=== PATIENT | male | born 1985 | race Caucasian/White ===

== ENCOUNTER 2021-04-30 00:46 | Inpatient (IN) | payer OTHER, SELFPAY ==
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
[2021-04-30 06:36] VITALS: BP 143/86; PULSE 72; RESP 16; O2SAT 95
[2021-04-30] MEDS: Acetaminophen 325 MG TABLET 650 MG PO (08:45)
[2021-04-30] MEDS: Nicotine Polacrilex 2 MG GUM 4 MG BUCCAL ×2 (10:30→22:13)
[2021-04-30 10:33] VITALS: BMI 51.2
[2021-04-30] MEDS: hydrOXYzine HCL 25 MG TABLET PO ×2 (13:44→21:29)
--- NOTE | 2021-04-30 14:37 | HO.PSYADMNOT ---
HPI Chief Complaint: Major depressive disorder Sources of Information: patient interviewed, chart reviewed and crisis/core team assessment reviewed HPI Subjective Notes: Conditional Voluntary Narrative: Mr. Troy Beltran is a 35 year-old male with hx of cocaine use. He was brought to [facility] ED after he called 911 reporting suicidal ideation. Per crisis report, pt has been presenting as increasingly more irritable, threatening . He apparently had come from work, very angry towards , accusing her of not doing any work at home. Per crisis report, noted that he was off. was scared of pt as he appeared very volatile and agitated. She told him she would call the police. But instead pt decided to call police. Per crisis records, when policed arrived, pt holding knife and reporting suicidal ideation. 51A was filed unclear if by police or crisis- DCF now involved and wanting to talk with pt prior to discharge. In the ED, pt was positive for cocaine. On the unit, Mr. Beltran presents as much calmer, apologetic and tearful. He reports having about 2 years of sobriety and relapsed on cocaine about 8 months ago. He notes that he has become much more irritable and explosive and it is affecting his ability to care for his children and his relationship with his and ultimately his work. He reports in the past he was on topamax but had left sided weakness which he thought was related to topamax so he stopped this medications. Note that he was never medically assessed or evaluated for possible CVA. Pt reports poor sleep/appetite. He denies visual or auditory hallucinations. Past Psychiatric History: Inpatient: 09/15/2019 [facility]; 01/23/19 [facility]; 01/2015 [facility]; 08/2008 [facility] OP: none Past medication trials: topamax for cocaine cravings Suicide attempts: denies. Medical Evaluation Reviewed: Yes Diagnostics Vital Signs (24Hr): Vital Signs - 24 hr 04/30/21 06:36 Pulse Rate 72 Respiratory Rate 16 Blood Pressure 143/86 H Pulse Oximetry 95 Body Mass Index 51.2 Meds/Allergies Meds Home Medications Acetaminophen (Acetaminophen 325 Mg Tablet) 650 mg PO Q6H PRN PRN Reason: Headache/Pain Mild Scale (1-3) Last Admin: 04/30/21 08:45 Dose: 650 mg Documented by: Al Hydroxide/Mg Hydroxide (Magnesium Hydrox/Alum Hydrox 30 Ml Oral.Susp) 30 ml PO Q6H PRN PRN Reason: Heartburn/Nausea Amlodipine Besylate (Amlodipine Besylate 10 Mg Tablet) 10 mg PO DAILY [facility]; Protocol Last Admin: 05/01/21 08:17 Dose: 10 mg Documented by: Hydroxyzine HCl (Hydroxyzine Hcl 25 Mg Tablet) 25 mg PO Q6H PRN PRN Reason: Anxiety Last Admin: 05/01/21 08:54 Dose: 25 mg Documented by: Lorazepam (Lorazepam 1 Mg Tablet) 1 mg PO Q6H PRN PRN Reason: anxiety/restlessness Magnesium Hydroxide (Milk Of Magnesia 30 Ml Oral.Susp) 30 ml PO DAILY PRN PRN Reason: Constipation Last Admin: 04/30/21 20:32 Dose: 30 ml Documented by: Naproxen (Naproxen 500 Mg Tablet) 500 mg PO BIDWM [facility] Last Admin: 05/01/21 08:17 Dose: 500 mg Documented by: Nicotine Polacrilex (Nicotine Polacrilex 2 Mg Gum) 4 mg BUCCAL Q2H PRN PRN Reason: Nicotine Cravings Last Admin: 05/01/21 09:49 Dose: 4 mg Documented by: Topiramate (Topiramate 25 Mg Tablet) 50 mg PO BID [facility] Last Admin: 05/01/21 08:16 Dose: 50 mg Documented by: Trazodone HCl (Trazodone Hcl 50 Mg Tablet) 50 mg PO BEDTIME PRN PRN Reason: Insomnia Allergies Allergies Allergy/AdvReac Type Severity Reaction Status Date / Time No Known Allergies Allergy Verified 04/30/21 01:37 Mental Status Exam Mental Status Exam Narrative: Appearance: casually groomed, fair hygiene in NAD Behavior:cooperative psychomotor: no agitation or retardation noted Speech:clear, normal rate/rhythm/volume, spontaneous Thought process:linear Thought content:no signs of psychosis, future oriented, remorseful about substance use Mood: worried Affect: congruent SI:denies HI:denies VH/AH:none Delusions:none Memory/cog: alert, oriented x 3. grossly intact to conversational testing. 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 Beltran is a 35 year-old male with hx of cocaine use, in remission for about two years but relapsed about 8 months ago. He was brought by police to [facility] after he called 911 reported suicidal ideation in context of argument with , exacerbated but increased irritability and agitation secondary to cocaine use. On the unit, pt presents much calmer, apologetic, future oriented, no si/hi. He agrees to restart topamax for cocaine use disorder. PLAN 1. Admit to 2. Restart topamax 50mg po BID, will titrate as needed 3. Obtain collateral information Patient educated on: medication risk/benefits Informed Consent: understands Reason for continued inpatient stay Substantial Risk for: inability to function
[2021-04-30 16:46] VITALS: BP 178/100; PULSE 71; TEMP 36.3
[2021-04-30 17:06] VITALS: BP 176/92; PULSE 63
[2021-04-30] MEDS: NaPROXEN 500 MG TABLET PO (17:06)
[2021-04-30] MEDS: amLODIPine Besylate 10 MG TABLET PO (17:06)
[2021-04-30] MEDS: Topiramate 25 MG TABLET 50 MG PO (20:23)
[2021-04-30] MEDS: Milk of Magnesia 30 ML ORAL.SUSP PO (20:32)
[2021-05-01 06:50] VITALS: BP 128/83; PULSE 71; TEMP 36.2; O2SAT 98
[2021-05-01] MEDS: Topiramate 25 MG TABLET 50 MG PO ×2 (08:16→20:16)
[2021-05-01 08:17] VITALS: BP 169/92; PULSE 62
[2021-05-01] MEDS: amLODIPine Besylate 10 MG TABLET PO (08:17)
[2021-05-01] MEDS: NaPROXEN 500 MG TABLET PO ×2 (08:17→16:53)
[2021-05-01] MEDS: hydrOXYzine HCL 25 MG TABLET PO ×2 (08:54→22:09)
[2021-05-01 09:25] LABS: Estimated Average Glucose 114 mg/dL; Hemoglobin A1c % 5.6 %
[2021-05-01 09:28] LABS: Cholesterol 168 mg/dL; HDL Cholesterol 39 mg/dL; LDL Cholesterol Calculated 102 mg/dl; Triglycerides 135 mg/dL
[2021-05-01] MEDS: Nicotine Polacrilex 2 MG GUM 4 MG BUCCAL ×2 (09:49→21:43)
[2021-05-01 09:50] LABS: Thyroid Stimulating Hormone 1.46 uIU/mL (0.32-4.0)
[2021-05-01 10:01] LABS: Folate 13.3 ng/mL (> or = 4.0); Vitamin B12 533 pg/mL (200-900)
--- NOTE | 2021-05-01 11:49 | HO.PSYCHPN ---
Subjective Subjective Date of Service: 05/02/21 Reason For Visit: Major depressive disorder Subjective Notes: Conditional Voluntary Interim History: Pt reports feeling better in that he is much less irritable, apologetic and remorseful about incident with family. He notes that his irritability is connected to cocaine use, which he states he is motivated to continue substance use treatment. He denies SI/HI. He reports fair sleep with cpap. He denies AH/VH. Medication Compliance: Yes Side effects from medications: Yes (paresthesia with topamax) Review of Systems Acute medical concerns: No Review of Systems Review of Systems Yes all other systems are reviewed and are negative Constitutional: Reports poor appetite, Reports snoring, Denies weight gain and Denies weight loss Cardiovascular: Denies chest pain, Denies chest pain at rest, Denies chest pain with activity, Denies epigastric discomfort, Denies rapid heart rate, Denies pedal edema, Denies edema, Denies lightheadedness, Denies radiating jaw, neck or arm pain, Denies palpitations, Denies dyspnea and Denies dyspnea on exertion Respiratory: Denies dyspnea, Denies dyspnea on exertion and Reports snoring Endocrine: Denies palpitations Mental Status Exam Mental Status Exam Narrative: Appearance: casually groomed, fair hygiene in NAD Behavior:cooperative psychomotor: no agitation or retardation noted Speech:clear, normal rate/rhythm/volume, spontaneous Thought process:linear Thought content:no signs of psychosis, future oriented, remorseful about substance use Mood: worried Affect: congruent SI:denies HI:denies VH/AH:none Delusions:none Memory/cog: alert, oriented x 3. grossly intact to conversational testing. Diagnostics Vital Signs (24Hr): Vital Signs - 24 hr 05/01/21 17:21 05/02/21 06:00 05/02/21 08:34 Temperature 97.8 F 97.6 F Pulse Rate 68 72 72 Respiratory Rate 18 16 Blood Pressure 174/91 H 150/86 H 160/92 H Pulse Oximetry 98 95 05/02/21 09:21 Temperature Pulse Rate 76 Respiratory Rate Blood Pressure 162/101 H Pulse Oximetry Body Mass Index 51.2 Labs Labs: Laboratory Results - last 48 hr 05/01/21 05/01/21 05/01/21 08:05 08:05 08:05 Estimat Average Glucose 114 Hemoglobin A1c % 5.6 Triglycerides 135 Cholesterol 168 LDL Cholesterol, Calc 102 HDL Cholesterol 39 Vitamin B12 533 Folate 13.3 TSH 1.46 Medications Medications Current Medications Generic Name Dose Route Start Last Admin Trade Name Prince PRN Reason Stop Dose Admin Acetaminophen 650 mg 04/30/21 01:37 04/30/21 08:45 Acetaminophen 325 Mg Tablet PO 650 mg Q6H PRN Administration Headache/Pain Mild Scale (1-3) Al Hydroxide/Mg Hydroxide 30 ml 04/30/21 01:37 Magnesium Hydrox/Alum Hydrox 30 Ml Oral.Susp PO Q6H PRN Heartburn/Nausea Amlodipine Besylate 10 mg 04/30/21 16:55 05/02/21 08:34 Amlodipine Besylate 10 Mg Tablet PO 10 mg DAILY DANIEL Administration Protocol Clonidine HCl 0.1 mg 05/02/21 12:00 Clonidine Hcl 0.1 Mg Tablet PO 05/02/21 12:01 ONCE ONE Protocol Hydrochlorothiazide 25 mg 05/02/21 09:00 05/02/21 08:34 Hydrochlorothiazide 25 Mg Tablet PO 25 mg DAILY DANIEL Administration Protocol Hydroxyzine HCl 25 mg 04/30/21 01:37 05/01/21 22:09 Hydroxyzine Hcl 25 Mg Tablet PO 25 mg Q6H PRN Administration Anxiety Lisinopril 20 mg 05/02/21 09:00 05/02/21 08:34 Lisinopril 20 Mg Tablet PO 20 mg DAILY DANIEL Administration Protocol Lorazepam 1 mg 04/30/21 21:28 05/01/21 22:09 Lorazepam 1 Mg Tablet PO 1 mg Q6H PRN Administration anxiety/restlessness Magnesium Hydroxide 30 ml 04/30/21 01:37 05/01/21 21:44 Milk Of Magnesia 30 Ml Oral.Susp PO 30 ml DAILY PRN Administration Constipation Naproxen 500 mg 04/30/21 17:00 05/02/21 08:34 Naproxen 500 Mg Tablet PO 500 mg BIDWM DANIEL Administration Nicotine Polacrilex 4 mg 04/30/21 10:24 05/02/21 09:26 Nicotine Polacrilex 2 Mg Gum BUCCAL 4 mg Q2H PRN Administration Nicotine Cravings Polyethylene Glycol 17 gm 05/01/21 11:08 05/01/21 13:33 Polyethylene Glycol 3350 17 Gm Powd.Pack PO 17 gm DAILY PRN Administration Constipation Potassium Chloride 10 meq 05/02/21 09:00 05/02/21 08:34 Potassium Chloride Er 10 Meq Capsule.Er PO 10 meq DAILY DANIEL Administration Topiramate 50 mg 05/02/21 21:00 Topiramate 25 Mg Tablet PO BEDTIME DANIEL Trazodone HCl 50 mg 04/30/21 01:37 Trazodone Hcl 50 Mg Tablet PO BEDTIME PRN Insomnia Allergies Allergies Allergy/AdvReac Type Severity Reaction Status Date / Time No Known Allergies Allergy Verified 04/30/21 01:37 Assessment & Plan Assessment & Plan (1) 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 Beltran is a 35 year-old male brought to [facility] by police after he called reporting suicidal ideation in setting of cocaine use and argument with . On unit, pt adamantly denies suicidal or homicidal ideation. He was started on topamax for cocaine cravings but experiencing parethesias (hand and face numbness) which common side effect of topamax. We discussed decreasing dose of topamax to 50mg po qhs and adding potassium tablet for topamax induced paresthisia PLAN 1. lower topamax to 50mg po qhs- add K 10 meq daily for paresthesias 2. aftercare planning Assessment and Plan: This is a 35-year-old male with no significant past medical history who presents to the [facility] unit with cocaine induced mood disorder and suicidal ideation We are asked to see this patient for admission H&P He currently has no acute issues and has no medical complaints Greater than 50% of the session was spent on counseling and/or coordination of care Reason for contiued inpatient stay Substantial Risk for: harm to self and harm to others
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
[2021-05-01] MEDS: polyethylene glycoL 3350 17 GM POWD.PACK PO (13:33)
[2021-05-01 17:21] VITALS: BP 174/91; PULSE 68; RESP 18; TEMP 36.6; O2SAT 98
[2021-05-01] MEDS: Milk of Magnesia 30 ML ORAL.SUSP PO (21:44)
[2021-05-01] MEDS: LORazepam 1 MG TABLET PO (22:09)
[2021-05-02 06:00] VITALS: BP 150/86; PULSE 72; RESP 16; TEMP 36.4; O2SAT 95
[2021-05-02 08:34] VITALS: BP 160/92; PULSE 72
[2021-05-02] MEDS: lisinopriL 20 MG TABLET PO (08:34)
[2021-05-02] MEDS: hydroCHLOROthiazide 25 MG TABLET PO (08:34)
[2021-05-02] MEDS: NaPROXEN 500 MG TABLET PO ×2 (08:34→17:12)
[2021-05-02] MEDS: amLODIPine Besylate 10 MG TABLET PO (08:34)
[2021-05-02 09:21] VITALS: BP 162/101; PULSE 76
[2021-05-02] MEDS: Nicotine Polacrilex 2 MG GUM 4 MG BUCCAL ×2 (09:26→21:57)
[2021-05-02 12:01] VITALS: BP 166/107; PULSE 84
[2021-05-02] MEDS: cloNIDine HCL 0.1 MG TABLET PO (12:01)
[2021-05-02 13:47] VITALS: BP 156/90; PULSE 76
[2021-05-02 17:15] VITALS: BP 132/58; PULSE 77; TEMP 36.2
[2021-05-02] MEDS: polyethylene glycoL 3350 17 GM POWD.PACK PO (17:19)
[2021-05-02] MEDS: Topiramate 25 MG TABLET 50 MG PO (22:24)
[2021-05-03] MEDS: traZODone HCL 50 MG TABLET PO ×2 (01:09→21:41)
[2021-05-03] MEDS: LORazepam 1 MG TABLET PO ×2 (05:29→12:47)
[2021-05-03 07:47] VITALS: BP 135/82; PULSE 67
[2021-05-03] MEDS: lisinopriL 20 MG TABLET PO (07:47)
[2021-05-03] MEDS: amLODIPine Besylate 10 MG TABLET PO (07:47)
[2021-05-03] MEDS: hydroCHLOROthiazide 25 MG TABLET PO (07:47)
[2021-05-03] MEDS: NaPROXEN 500 MG TABLET PO ×2 (07:48→16:35)
[2021-05-03] MEDS: Nicotine Polacrilex 2 MG GUM 4 MG BUCCAL ×2 (10:19→19:59)
[2021-05-03] MEDS: hydrOXYzine HCL 25 MG TABLET PO (12:44)
[2021-05-03 16:58] VITALS: BP 137/74; PULSE 79; RESP 16; TEMP 36.7; O2SAT 96
[2021-05-03] MEDS: polyethylene glycoL 3350 17 GM POWD.PACK PO (17:03)
--- NOTE | 2021-05-03 21:09 | P.PNPSI_ITS ---
Subjective Subjective Date of Service: 05/03/21 Reason For Visit: Major depressive disorder Subjective Notes: Conditional Voluntary Interim History: sleeping in bed Medication Compliance: Yes Review of Systems Acute medical concerns: No Medical Review of Systems: unchanged Mental Status Exam Mental Status Exam Patient Appearance: Well Grooomed and Appropriate Level of Consciousness: Drowsy Patient Behavior: Appropriate Mood Description: Calm Affect Description: Calm Judgement: Fair Diagnostics Vital Signs (24Hr): Vital Signs - 24 hr 05/03/21 07:47 05/03/21 16:58 Temperature 98.0 F Pulse Rate 67 79 Respiratory Rate 16 Blood Pressure 135/82 137/74 Pulse Oximetry 96 Body Mass Index 51.2 Medications Medications Current Medications Generic Name Dose Route Start Last Admin Trade Name Freq PRN Reason Stop Dose Admin Acetaminophen 650 mg 04/30/21 01:37 04/30/21 08:45 Acetaminophen 325 Mg Tablet PO 650 mg Q6H PRN Administration Headache/Pain Mild Scale (1-3) Al Hydroxide/Mg Hydroxide 30 ml 04/30/21 01:37 Magnesium Hydrox/Alum Hydrox 30 Ml Oral.Susp PO Q6H PRN Heartburn/Nausea Amlodipine Besylate 10 mg 04/30/21 16:55 05/03/21 07:47 Amlodipine Besylate 10 Mg Tablet PO 10 mg DAILY DANIEL Administration Protocol Hydrochlorothiazide 25 mg 05/02/21 09:00 05/03/21 07:47 Hydrochlorothiazide 25 Mg Tablet PO 25 mg DAILY DANIEL Administration Protocol Hydroxyzine HCl 25 mg 04/30/21 01:37 05/03/21 12:44 Hydroxyzine Hcl 25 Mg Tablet PO 25 mg Q6H PRN Administration Anxiety Lisinopril 20 mg 05/02/21 09:00 05/03/21 07:47 Lisinopril 20 Mg Tablet PO 20 mg DAILY DANIEL Administration Protocol Lorazepam 1 mg 04/30/21 21:28 05/03/21 12:47 Lorazepam 1 Mg Tablet PO 1 mg Q6H PRN Administration anxiety/restlessness Magnesium Hydroxide 30 ml 04/30/21 01:37 05/01/21 21:44 Milk Of Magnesia 30 Ml Oral.Susp PO 30 ml DAILY PRN Administration Constipation Naproxen 500 mg 04/30/21 17:00 05/03/21 16:35 Naproxen 500 Mg Tablet PO 500 mg BIDWM DANIEL Administration Nicotine Polacrilex 4 mg 04/30/21 10:24 05/03/21 19:59 Nicotine Polacrilex 2 Mg Gum BUCCAL 4 mg Q2H PRN Administration Nicotine Cravings Polyethylene Glycol 17 gm 05/01/21 11:08 05/03/21 17:03 Polyethylene Glycol 3350 17 Gm Powd.Pack PO 17 gm DAILY PRN Administration Constipation Potassium Chloride 10 meq 05/02/21 09:00 05/03/21 07:47 Potassium Chloride Er 10 Meq Capsule.Er PO 10 meq DAILY DANIEL Administration Topiramate 50 mg 05/02/21 21:00 05/02/21 22:24 Topiramate 25 Mg Tablet PO 50 mg BEDTIME DANIEL Administration Trazodone HCl 50 mg 04/30/21 01:37 05/03/21 01:09 Trazodone Hcl 50 Mg Tablet PO 50 mg BEDTIME PRN Administration Insomnia Allergies Allergies Allergy/AdvReac Type Severity Reaction Status Date / Time No Known Allergies Allergy Verified 04/30/21 01:37 Assessment & Plan Assessment & Plan (1) 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 Beltran is a 35 year-old male brought to [facility] by police after he called reporting suicidal ideation in setting of cocaine use and argument with . On unit, pt adamantly denies suicidal or homicidal ideation. He was started on topamax for cocaine cravings but experiencing parethesias (hand and face numbnes s) which common side effect of topamax. We discussed decreasing dose of topamax to 50mg po qhs and adding potassium tablet for topamax induced paresthisia Continue plan below: 1. lower topamax to 50mg po qhs- add K 10 meq daily for paresthesias 2. aftercare planning Assessment and Plan: This is a 35-year-old male with no significant past medical history who presents to the [facility] unit with cocaine induced mood disorder and suicidal ideation Continue treatment plan Greater than 50% of the session was spent on counseling and/or coordination of care Reason for contiued inpatient stay Substantial Risk for: harm to self and med/psych decompensation
[2021-05-03] MEDS: Topiramate 25 MG TABLET 50 MG PO (21:36)
[2021-05-04 06:00] VITALS: BP 140/73; PULSE 72; TEMP 36.2; O2SAT 98
[2021-05-04] MEDS: Nicotine Polacrilex 2 MG GUM 4 MG BUCCAL ×4 (06:32→18:52)
[2021-05-04 07:53] VITALS: BP 155/74; PULSE 84
[2021-05-04] MEDS: lisinopriL 20 MG TABLET PO (07:53)
[2021-05-04] MEDS: NaPROXEN 500 MG TABLET PO (07:53)
[2021-05-04] MEDS: amLODIPine Besylate 10 MG TABLET PO (07:53)
[2021-05-04] MEDS: hydroCHLOROthiazide 25 MG TABLET PO (07:54)
--- NOTE | 2021-05-04 11:33 | P.PNPSI_ITS ---
Subjective Subjective Date of Service: 05/04/21 Reason For Visit: Major depressive disorder Subjective Notes: Conditional Voluntary Healthcare Proxy: No Guardianship: No Medical Problems Affecting Mental Status: No Interim History: pt had angry outburst yelling and running at unit door; security called to unit and pt had difficulty calming but eventually able to be redirected. Medication Compliance: Yes Side effects from medications: No Attending Groups: Intermittent Review of Systems Acute medical concerns: No Medical Review of Systems: unchanged Review of Systems Review of Systems unchanged Yes all other systems are reviewed and are negative Constitutional: Reports poor appetite, Reports snoring, Denies weight gain and Denies weight loss Cardiovascular: Denies chest pain, Denies chest pain at rest, Denies chest pain with activity, Denies epigastric discomfort, Denies rapid heart rate, Denies pedal edema, Denies edema, Denies lightheadedness, Denies radiating jaw, neck or arm pain, Denies palpitations, Denies dyspnea and Denies dyspnea on exertion Respiratory: Denies dyspnea, Denies dyspnea on exertion and Reports snoring Endocrine: Denies palpitations Mental Status Exam Mental Status Exam Patient Appearance: Well Grooomed and Appropriate Level of Consciousness: Drowsy Patient Behavior: Appropriate (after outburst), Posturing, Verbal Threats and Isolative Mood Description: Calm and Angry (outburst) Affect Description: Calm Patient Cognition Impaired: No Ability to Follow Directions: Fair Speech Pattern: Clear Memory Description: Intact Thought Process: Intact Abnormal Motor Activity Signs and Symptoms: Restlessness Judgement: Fair Diagnostics Vital Signs (24Hr): Vital Signs - 24 hr 05/03/21 16:58 05/04/21 06:00 05/04/21 07:53 Temperature 98.0 F 97.2 F Pulse Rate 79 72 84 Respiratory Rate 16 Blood Pressure 137/74 140/73 H 155/74 H Pulse Oximetry 96 98 Body Mass Index 51.2 Medications Medications Current Medications Generic Name Dose Route Start Last Admin Trade Name Freq PRN Reason Stop Dose Admin Acetaminophen 650 mg 04/30/21 01:37 04/30/21 08:45 Acetaminophen 325 Mg Tablet PO 650 mg Q6H PRN Administration Headache/Pain Mild Scale (1-3) Al Hydroxide/Mg Hydroxide 30 ml 04/30/21 01:37 Magnesium Hydrox/Alum Hydrox 30 Ml Oral.Susp PO Q6H PRN Heartburn/Nausea Amlodipine Besylate 10 mg 04/30/21 16:55 05/04/21 07:53 Amlodipine Besylate 10 Mg Tablet PO 10 mg DAILY DANIEL Administration Protocol Hydrochlorothiazide 25 mg 05/02/21 09:00 05/04/21 07:54 Hydrochlorothiazide 25 Mg Tablet PO 25 mg DAILY DANIEL Administration Protocol Hydroxyzine HCl 25 mg 04/30/21 01:37 05/03/21 12:44 Hydroxyzine Hcl 25 Mg Tablet PO 25 mg Q6H PRN Administration Anxiety Lisinopril 20 mg 05/02/21 09:00 05/04/21 07:53 Lisinopril 20 Mg Tablet PO 20 mg DAILY DANIEL Administration Protocol Lorazepam 1 mg 04/30/21 21:28 05/03/21 12:47 Lorazepam 1 Mg Tablet PO 1 mg Q6H PRN Administration anxiety/restlessness Magnesium Hydroxide 30 ml 04/30/21 01:37 05/01/21 21:44 Milk Of Magnesia 30 Ml Oral.Susp PO 30 ml DAILY PRN Administration Constipation Naproxen 500 mg 04/30/21 17:00 05/04/21 07:53 Naproxen 500 Mg Tablet PO 500 mg BIDWM DANIEL Administration Nicotine Polacrilex 4 mg 04/30/21 10:24 05/04/21 10:48 Nicotine Polacrilex 2 Mg Gum BUCCAL 4 mg Q2H PRN Administration Nicotine Cravings Polyethylene Glycol 17 gm 05/01/21 11:08 05/03/21 17:03 Polyethylene Glycol 3350 17 Gm Powd.Pack PO 17 gm DAILY PRN Administration Constipation Potassium Chloride 10 meq 05/02/21 09:00 05/04/21 07:54 Potassium Chloride Er 10 Meq Capsule.Er PO 10 meq DAILY DANIEL Administration Topiramate 50 mg 05/02/21 21:00 05/03/21 21:36 Topiramate 25 Mg Tablet PO 50 mg BEDTIME DANIEL Administration Trazodone HCl 50 mg 04/30/21 01:37 05/03/21 21:41 Trazodone Hcl 50 Mg Tablet PO 50 mg BEDTIME PRN Administration Insomnia Allergies Allergies Allergy/AdvReac Type Severity Reaction Status Date / Time No Known Allergies Allergy Verified 04/30/21 01:37 Assessment & Plan Assessment & Plan (1) 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 Beltran is a 35 year-old male brought to [facility] ED by police after he called reporting suicidal ideation in setting of cocaine use and argument with . On unit, pt adamantly denies suicidal or homicidal ideation. He was started on topamax for cocaine cravings but experiencing parethesias (hand and face numbness) which common side effect of topamax. We discussed decreasing dose of topamax to 50mg po qhs and adding potassium tablet for topamax induced paresthi saige Continue plan below: Consider IED lower topamax to 50mg po qhs- add K 10 meq daily for paresthesias aftercare planning Assessment and Plan: This is a 35-year-old male with no significant past medical history who presents to the U unit with cocaine induced mood disorder and suicidal ideation; Consider Intermittent Explosive Disorder dx Continue treatment plan Greater than 50% of the session was spent on counseling and/or coordination of care Patient educated on: therapeutic strategies Informed Consent: further education needed Reason for contiued inpatient stay Substantial Risk for: harm to self, inability to function and rapid decompensation
[2021-05-04 18:00] VITALS: BP 132/73; PULSE 65
[2021-05-04] MEDS: polyethylene glycoL 3350 17 GM POWD.PACK PO (18:51)
[2021-05-04] MEDS: Topiramate 25 MG TABLET 50 MG PO (21:47)
[2021-05-04] MEDS: traZODone HCL 50 MG TABLET PO (22:47)
[2021-05-05 06:00] VITALS: BP 168/86; PULSE 73; RESP 16; TEMP 36.6; O2SAT 97
[2021-05-05] MEDS: NaPROXEN 500 MG TABLET PO (08:04)
[2021-05-05] MEDS: amLODIPine Besylate 10 MG TABLET PO (08:05)
[2021-05-05] MEDS: lisinopriL 20 MG TABLET PO (08:05)
[2021-05-05] MEDS: hydroCHLOROthiazide 25 MG TABLET PO (08:05)
[2021-05-05] MEDS: Nicotine Polacrilex 2 MG GUM 4 MG BUCCAL (11:50)
--- NOTE | 2021-05-05 11:54 | P.DS_ITS ---
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: Status: Acute DS: Medications Discharge Medications Home Medications: Previous Rx's Medication Instructions Recorded amlodipine 10 mg tablet 10 mg PO DAILY #30 tab 05/05/21 divalproex 250 mg tablet,delayed 750 mg PO BID #120 tab 05/05/21 release hydrochlorothiazide 25 mg tablet 25 mg PO DAILY #30 tab 05/05/21 lisinopril 20 mg tablet 20 mg PO DAILY #30 tab 05/05/21 naproxen 500 mg tablet 500 mg PO BIDWM #60 tab 05/05/21 nicotine (polacrilex) 2 mg gum 4 mg BUCCAL Q2H PRN #20 ea 05/05/21 polyethylene glycol 3350 17 gram 17 g PO DAILY PRN #30 ea 05/05/21 oral powder packet potassium chloride 10 mEq 10 meq PO DAILY #15 cap 05/05/21 capsule,extended release topiramate 25 mg tablet 50 mg PO BEDTIME #30 tab 05/05/21 trazodone 50 mg tablet 50 mg PO BEDTIME PRN #30 tab 05/05/21 Mental Status Exam Mental Status Exam Narrative: Appearance: casually groomed, fair hygiene in NAD Behavior:cooperative psychomotor: no agitation or retardation noted Speech:clear, normal rate/rhythm/volume, spontaneous Thought process:linear Thought content:no signs of psychosis, future oriented, remorseful about substance use Mood: good Affect: congruent SI:denies HI:denies VH/AH:none Delusions:none Memory/cog: alert, oriented x 3. grossly intact to conversational testing. Data Data Completed and Pending Completed studies during hospitalization [Text1]: 05/01/21 05/01/21 05/01/21 08:05 08:05 08:05 Potassium Estimat Average Glucose 114 Hemoglobin A1c % 5.6 Triglycerides 135 Cholesterol 168 LDL Cholesterol, Calc 102 HDL Cholesterol 39 Vitamin B12 533 Folate 13.3 TSH 1.46 05/05/21 08:04 Potassium 4.0 Estimat Average Glucose Hemoglobin A1c % Triglycerides Cholesterol LDL Cholesterol, Calc HDL Cholesterol Vitamin B12 Folate TSH DS: Summary Hospital Course Hospital Course: Mr. Troy Beltran is a 35 year-old male with hx of cocaine use. He was brought to [facility] after he called 911 reporting suicidal ideation. Per crisis report, pt has been presenting as increasingly more irritable, threatening . He apparently had come from work, very angry towards , accusing her of not doing any work at home. Per crisis report, noted that he was off. was scared of pt as he appeared very volatile and agitated. She told him she would call the police. But instead pt decided to call police. Per crisis records, when policed arrived, pt holding knife and reporting suicidal ideation. 51A was filed unclear if by police or crisis- DCF now involved and wanting to talk with pt prior to discharge. In the ED, pt was positive for cocaine. On the unit, Mr. Beltran presents as much calmer, apologetic and tearful. He reports having about 2 years of sobriety and relapsed on cocaine about 8 months ago. He notes that he has become much more irritable and explosive and it is affecting his ability to care for his children and his relationship with his and ultimately his work. He reports in the past he was on topamax but had left sided weakness which he thought was related to topamax so he stopped this medications. Note that he was never medically assessed or evaluated for possible CVA. Pt reports poor sleep/appetite. He denies visual or auditory hallucinations. Past Psychiatric History: Inpatient: 09/15/2019 [facility]; 01/23/19 [facility]; 01/2015 [facility]; 08/2008 [place] OP: none Past medication trials: topamax for cocaine cravings Suicide attempts: denies. Medical Evaluation Reviewed: Yes HOSPITAL COURSE On the unit, pt was admitted on a CV and placed on 15 minutes checks for safety. Pt was apologetic about incident with in context of cocaine use. Pt expressed motivation to continue substance use treatment. After discussing risks, benefits and alternative treatment options, pt reports that topamax was helpful in decreasing cocaine cravings. He did have parest hesias- bilat hands and face on higher doses than 50mg. Added potassium 10 meq daily also to tx topamax induced paresthesia. During the admission, pt later had few episodes of explosive behaviors when he was told to ask for head phone. Pt was agitated, demanding to be discharged, difficult to redirect, security was called for support/safety. Pt threatening security, finally calmed down. We discussed after incident that pt continues to struggle to self-regulate, and continues to have some explosive behaviors. Pt agrees to start depakote for mood, impulsive/explosive behaviors. He denied suicidal or homicidal ideation. There were no need for restraints. Collateral information from who reports appears in much improved condition and denied safety concerns. Pt met with DCF while in unit, pt able to return to the home. Time spent discussing smoking cessation with patient: 3 to 10 minutes Status at Discharge Cognitive/behavioral status at discharge: Pt calmer, less explosive behaviors. No SI/HI. Motivated to continue substance use treatment program and follow up with OP psych tx. Future oriented. Functional status at discharge: independent ambulation Overall status at discharge: patient is progressing back to baseline Time Spent with Patient Time attestation: Total time spent providing and/or coordinating discharge services: Time spent: Greater than 30 minutes Discharge Plan Discharge Patient Disposition: Home, Self-Care Discharge Diagnosis: Mood disorder NOS Referrals: Shameka [facility] [Other] - 05/09/21 10:30 am (The program will contact you over the phone to complete the Intake. The program is virtual.) Svetlana Juan (therapy) [Other] - 05/12/21 3:00 pm (This appointment is via Telehealth ) Clayton Herrera (psychiatry) [Other] - 06/05/21 9:30 am (This appointment is via Telehealth) Clayton Herrera (psychiatry) [Other] - 07/03/21 11:00 am (This appointment is via Telehealth) Eloisa Chicas PA [Primary Care Provider] - 1 Week ( OFFICE AWARE OF PT DISCHARGE . WILL CALL US OR PT WITH FOLLOW-UP APPOINTMENT.) Discharge Medications: New trazodone 50 mg Tablet 50 mg PO BEDTIME PRN (Reason: Insomnia) Qty: 30 RF: 0 nicotine (polacrilex) 2 mg Gum 4 mg buccal Q2H PRN (Reason: Nicotine Cravings) Qty: 20 RF: 0 lisinopril 20 mg Tablet 20 mg PO DAILY Qty: 30 RF: 0 topiramate 25 mg Tablet 50 mg PO BEDTIME Qty: 30 RF: 0 amlodipine 10 mg Tablet 10 mg PO DAILY Qty: 30 RF: 0 naproxen 500 mg Tablet 500 mg PO BIDWM Qty: 60 RF: 0 potassium chloride 10 mEq Capsule, Extended Release 10 meq PO DAILY Qty: 15 RF: 0 polyethylene glycol 3350 17 gram Powder In Packet 17 g PO DAILY PRN (Reason: Constipation) Qty: 30 RF: 0 hydrochlorothiazide 25 mg Tablet 25 mg PO DAILY Qty: 30 RF: 0 divalproex 250 mg Tablet,Delayed Release (Dr/Ec) 750 mg PO BID Qty: 120 RF: 0 topiramate [Topamax] 50 mg tablet 50 mg PO BEDTIME Qty: 30 RF: 0 Discharge Orders: Discharge Order (Routine); Ordered 05/05/21 Ordered By: Darlyn Matt Diet: regular diet Activity on Discharge: As tolerated Stand Alone Forms: Patient Portal Discharge page, Community Support Care Plan Goals: 1. maintain mood. 2. decrease explosive behaviors 3. No SI/HI. Health Concerns: 1. Follow up with PCP Plan of Treatment: 1. Take medications as prescribed. 2. No SI/HI. 3. Go to nearest ED or call 911 in event of emergency Assessment: Less irritability, no SI/HI. No aggression towards self or others. Discharge Date/Time: 05/05/21 12:35
== END 2021-05-05 12:35 | disposition home or self-care (01) | DRG 774 ==
PROVIDERS: Admitting Provider Psychiatry & Neurology Psychiatry; PCP Physician Assistant; Visit Provider Social Worker
DX: F14.94 Cocaine use, unspecified with cocaine-induced mood disorder (principal); R45.851 Suicidal ideations; F17.210 Nicotine dependence, cigarettes, uncomplicated; Z71.6 Tobacco abuse counseling; Z79.1 Long term (current) use of non-steroidal anti-inflammatories (NSAID); Z79.899 Other long term (current) drug therapy
CPT/HCPCS: 36415; 80061; 82607; 82746; 83036; 84132; 84443

== ENCOUNTER 2025-01-26 22:23 | Inpatient (IN) | payer MEDICAID, SELFPAY ==
--- NOTE | 2025-01-26 | ECG_ITS ---
Test Reason : LEG SWELLING Blood Pressure : */* mmHG Vent. Rate : 71 BPM Atrial Rate : 71 BPM P-R Int : 204 ms QRS Dur : 106 ms QT Int : 436 ms P-R-T Axes : 14 7 94 degrees QTcB Int : 473 ms Normal sinus rhythm Left atrial enlargement Left ventricular hypertrophy ( [place] product ) ST & T wave abnormality, consider lateral ischemia or repolarization abnormality Prolonged QT Abnormal ECG No previous ECGs available Referred By: Generic ED Physician Electronically Signed By: ALANIS WESLEY MD
--- NOTE | 2025-01-26 | ECG_ITS ---
Test Reason : LEG SWELLING Blood Pressure : */* mmHG Vent. Rate : 69 BPM Atrial Rate : 69 BPM P-R Int : 180 ms QRS Dur : 116 ms QT Int : 478 ms P-R-T Axes : 6 18 90 degrees QTcB Int : 512 ms Normal sinus rhythm Left atrial enlargement Left ventricular hypertrophy with QRS widening ( [place] product ) Nonspecific T wave abnormality Prolonged QT Abnormal ECG When compared with ECG of 26-Jan-2025 22:35, ST no longer depressed in Lateral leads T wave inversion less evident in Lateral leads Referred By: Vanessa Jain Electronically Signed By: ALANIS WESLEY MD
--- NOTE | ~2025-01-26 | CT_ITS ---
CLINICAL HISTORY: Ventral hernia tenderness on palpation CT abdomen and pelvis without contrast Comparison: None Findings: No consolidation or effusion. Heart is enlarged with a small pericardial effusion. There is a midline upper abdominal ventral hernia with evidence of prior repair. Current aperture measures 7.9 cm in greatest axial dimension and 9.3 cm craniocaudally. This contains the anterior wall of a loop of transverse colon as well as liver. There is somewhat loculated within the hernia sac, possibly inflammatory. Unremarkable gallbladder. Spleen, pancreas, adrenal glands and kidneys demonstrate no acute process. Simple appearing lower pole right renal cysts measuring 2.2 cm. No bowel obstruction, pneumoperitoneum, or pneumatosis. Pelvic contents unremarkable. Normal appendix. No vascular dilation. Mildly prominent inguinal lymph nodes. No acute fracture. IMPRESSION: Large upper abdominal midline ventral hernia containing a small amount of transverse colon as well as liver with some loculated fluid. No bowel obstruction, biliary obstruction or obstructive uropathy. This document has been electronically signed by: Harriett Metcalf MD on 01/27/2025 08:51:38
--- NOTE | ~2025-01-26 | XR_ITS ---
CLINICAL HISTORY: ble swelling int sob 2 view chest x-ray Comparison: None available Findings: Bilateral pulmonary opacities are nonspecific and may reflect pulmonary edema or pneumonitis given interstitial predominance. Moderate to severe cardiomegaly noted. Small bilateral pleural effusions present. No definite pneumothorax by radiographs. Mild degenerative changes include imaged AC joints. Minimal thoracolumbar junction vertebral height loss are age indeterminate by radiographs. IMPRESSION: 1. Small bilateral pleural effusions. 2. Cardiomegaly. 3. Pulmonary opacities are nonspecific and may reflect pulmonary edema. This document has been electronically signed by: Martin Son MD on 01/27/2025 01:44:11
[2025-01-26 22:26] VITALS: BP 118/75; PULSE 71; RESP 20; TEMP 36.7; O2SAT 97; BMI 37.6
[2025-01-26 22:49] LABS: MANUAL DIFF FLAG NO
[2025-01-26 22:50] LABS: Basophils Percent Auto 0.5 % (0-2); Eosinophils Absolute Auto 0.2 X10*3/uL (0.0-0.4); Hematocrit 27.5 % (42.0-52.0); Hemoglobin 8.7 g/dl (14.0-18.0); Imm Gran Abs Auto 0.02 X10*3/uL (0.00-0.03); Imm Gran Pct Auto 0.3 % (0.0-0.4); Lymphocytes Absolute Auto 0.9 X10*3/uL (1.2-4.9); Lymphocytes Percent Auto 14.4 % (20-40); Mean Corpuscular HGB Conc 31.6 g/dl (31.0-36.0); Mean Corpuscular Hemoglobin 24.4 pg (27.0-33.0); Mean Corpuscular Volume 77.2 fL (80.0-98.0); Mean Platelet Volume 9.7 fL (9.4-12.4); Monocytes Absolute Auto 0.4 X10*3/uL (0.1-1.2); Monocytes Percent Auto 6.6 % (2-11); Neutrophils Absolute Auto 4.5 x10*3/uL (2.0-8.3); Neutrophils Percent Auto 75.2 % (45-73); Platelet Count 153 X10*3/uL (160-400); Red Blood Count 3.56 X10*6/uL (4.60-5.80); Red Cell Distribution Width 15.9 % (11.0-16.0)
[2025-01-26 23:09] LABS: Alanine Aminotransferase 26 U/L (0-40); Albumin Level 3.4 g/dL (3.5-5.0); Alkaline Phosphatase 65 U/L (39-117); Anion Gap 16 (12-20); Aspartate Amino Transferase 25 U/L (5-37); B Type Natriuretic Peptide 1837 pg/mL (<100); Bilirubin Total 0.3 mg/dL (0.0-1.0); Blood Urea Nitrogen 68 mg/dL (9-16); Calcium 6.8 mg/dL (8.4-10.2); Carbon Dioxide 24 mmol/L (22-29); Chloride 103 mmol/L (96-108); Creatinine Clr Calc Pharmacy 18.5; Estimated Glomerular Filt Rate 11; Glucose Random 96 mg/dL (60-115); Potassium 2.9 mmol/L (3.3-5.1); Sodium 140 mmol/L (135-145); Total Protein 6.2 g/dL (6.5-8.0)
--- NOTE | 2025-01-26 23:46 | ED_ITS ---
HPI - General Adult General Chief complaint: Extremity Problem Stated complaint: right and left leg swelling Time Seen by Provider: 01/26/25 23:46 Source: patient Mode of arrival: ambulatory Limitations: no limitations History of Present Illness ED Provider: HPI narrative: Patient's history of hypertension, CKD, cocaine use usual creatinine is around 3 comes here for 1 week of increased leg swelling and decreased urine output patient is on Bumex 1 mg twice a day patient also uses cocaine last use was 3 days patient has had labs done prior to my evaluation showed creatinine of 5.89 patient denied any significant shortness a breath no chest pain Related Data Previous Rx's ?Medication ?Instructions ?Recorded amlodipine 10 mg tablet 10 mg PO DAILY #30 tabs 05/05/21 divalproex 250 mg tablet,delayed 750 mg (3 x 250 mg) PO BID #120 05/05/21 release tabs hydrochlorothiazide 25 mg tablet 25 mg PO DAILY #30 tabs 05/05/21 lisinopril 20 mg tablet 20 mg PO DAILY #30 tabs 05/05/21 naproxen 500 mg tablet 500 mg PO BIDWM #60 tabs 05/05/21 nicotine (polacrilex) 2 mg gum 4 mg buccal Q2H PRN Nicotine 05/05/21 Cravings #20 ea polyethylene glycol 3350 17 gram 17 g PO DAILY PRN Constipation #30 05/05/21 oral powder packet ea potassium chloride 10 mEq 10 meq PO DAILY #15 caps 05/05/21 capsule,extended release topiramate 25 mg tablet 50 mg (2 x 25 mg) PO BEDTIME #30 05/05/21 tabs trazodone 50 mg tablet 50 mg PO BEDTIME PRN Insomnia #30 05/05/21 tabs topiramate 50 mg tablet (Topamax) 50 mg PO BEDTIME #30 tabs 05/07/21 Allergies Allergy/AdvReac Type Severity Reaction Status Date / Time No Known Allergies Allergy Verified 01/26/25 22:27 Review of Systems 2 Review of Systems: Yes all other systems are reviewed and are negative [facility] Past Medical History Medical History Hyperlipidemia Hypertension Tobacco use Surgical History H/O inguinal hernia repair H/O ventral hernia repair Social History Social History (Reviewed 01/27/25 @ 02:44 by KAYLA RoyFERR[facility]OSP[facility]ALLaura Household Members: Spouse Household Members Other:: unknown if any other household members Housing: Unknown / Unable to assess Do you presently have visiting nurse or other home services: No Patient Tobacco Use Status: Current everyday Tobacco user Tobacco use type: Cigarette Smoked in Last 30 Days: No e-Cigarette/Vaping Use: Never Used Second Hand Smoke Exposure: No Use of substances other than those prescribed or required for medical reasons: No Substance Use Type: Crack/Cocaine and Marijuana Advance Directives: No Advance Directives Information Provided: Yes Do you have a plan to hurt others: No Plan service: No Sexual orientation: Straight/Heterosexual Physical Exam ED Vital Signs: Vital Signs - 24 hr 01/26/25 22:26 01/27/25 00:17 Temperature 98.1 F Pulse Rate 71 Respiratory Rate 20 Blood Pressure 118/75 141/90 H Pulse Oximetry 97 Oxygen Delivery Method Room Air BMI result Body Mass Index 37.6 Appearance: Alert. Oriented X3. No acute distress. Eyes: PERRLA, No Nystagmus pallor+ ENT: Pharynx normal. Oral Mucosa moist Neck: Normal inspection. Neck supple. CVS: Normal heart rate and rhythm. Pulses normal. Respiratory: No respiratory distress. Equal air entry bilateral, no wheezing/rales/rhonchi Abdomen: Soft and nontender. Bowel sounds are present, no mass palpable, no CVA tenderness Skin: Skin warm and dry. Normal skin color. Normal skin turgor. Extremities:3+ lower extremity edema. No calf tenderness Neuro: Oriented X 3. No motor deficit. No sensory deficit.No cerebellar signs , cranial nerves II-XII intact Medications Administered Generic Name Dose Route Start Last Admin Trade Name Freq PRN Reason Stop Dose Admin Heparin Sodium (Porcine) 5,000 unit 01/27/25 02:00 01/27/25 02:54 Heparin Sodium,Porcine 5,000 Unit/Ml Vial SUBCUT 5,000 unit Q8H DANIEL Administration Furosemide 200 mg/ Sodium 100 mls @ 2.5 mls/hr 01/27/25 02:00 01/27/25 02:46 Chloride IVCONT 5 mg/hr .Q24H DANILE 2.5 mls/hr Administration 5 MG/HR Magnesium Sulfate 2 gm in 50 mls @ 25 mls/hr 01/27/25 03:26 01/27/25 03:33 Magnesium Sulfate/H2o IV 01/27/25 05:25 25 mls/hr ONCE ONE Administration Discontinued Medications Generic Name Dose Route Start Last Admin Trade Name Prince PRN Reason Stop Dose Admin Furosemide 80 mg 01/26/25 23:55 01/27/25 00:17 Furosemide 100 Mg/10 Ml Vial IVPUSH 01/26/25 23:56 80 mg ONCE ONE Administration Protocol Potassium Chloride 10 meq in 100 mls @ 100 mls/hr 01/26/25 23:56 01/27/25 03:27 Potassium Chloride/H20 IV 01/27/25 00:55 Infused ONCE ONE Infusion Potassium Bicarbonate 25 meq 01/26/25 23:56 01/27/25 00:16 Potassium Bicarbonate/Cit Ac 25 Meq Tablet.Eff PO 01/26/25 23:57 25 meq ONCE ONE Administration Potassium Chloride 80 meq 01/27/25 02:06 01/27/25 02:53 Potassium Chloride Er 20 Meq Tab.Er.Prt PO 01/27/25 02:07 80 meq ONCE ONE Administration Tizanidine HCl 4 mg 01/27/25 03:26 01/27/25 03:33 Tizanidine Hcl 4 Mg Tablet PO 01/27/25 03:27 4 mg ONCE ONE Administration Medical Decision Making Medical Decision Making [facility] Narrative: Patient with acute on chronic renal failure with history of cocaine use and hypertension will admit patient for IV hydration and IV diuresis chest x-ray showed fluid overload patient was given IV Lasix. Started on IV Lasix drip admit to the hospitalist service Differential Diagnosis Differential Diagnoses: The differential diagnosis associated with the presentation includes CHF/acute on chronic renal failure/renal artery stenosis/hypertensive nephropathy Admission/Observation Consideration of admission/observation: Escalation of care including admission/observation considered Consult Healthcare Provider Management of the patient was discussed with: Hospitalist Lab Data [facility] Lab Attestation statement: I reviewed the patient's lab results. 01/27/25 02:49 01/27/25 02:49 Labs: Lab Results 01/26/25 Range/Units 22:45 WBC 6.0 (4.8-10.8) X10*3/uL RBC 3.56 L (4.60-5.80) X10*6/uL Hgb 8.7 L (14.0-18.0) g/dl Hct 27.5 L (42.0-52.0) % MCV 77.2 L (80.0-98.0) fL MCH 24.4 L (27.0-33.0) pg MCHC 31.6 (31.0-36.0) g/dl RDW 15.9 (11.0-16.0) % Plt Count 153 L (160-400) X10*3/uL MPV 9.7 (9.4-12.4) fL Immature Gran % (Auto) 0.3 (0.0-0.4) % Neut % (Auto) 75.2 H (45-73) % Lymph % (Auto) 14.4 L (20-40) % [facility] % (Auto) 6.6 (2-11) % Eos % (Auto) 3.0 (0-4) % Baso % (Auto) 0.5 (0-2) % Lymph # (Auto) 0.9 L (1.2-4.9) X10*3/uL [facility] # (Auto) 0.4 (0.1-1.2) X10*3/uL Eos # (Auto) 0.2 (0.0-0.4) X10*3/uL Baso # (Auto) 0.0 (0.0-0.2) X10*3/uL Abs Immat Gran (auto) 0.02 (0.00-0.03) X10*3/uL Absolute Neuts (auto) 4.5 (2.0-8.3) x10*3/uL Absolute Nucleated RBC 0.000 (0.0-0.012) X10*3/uL Nucleated RBC % (auto) 0.0 (0.0-0.2) /100WBC Sodium 140 (135-145) mmol/L Potassium 2.9 L* (3.3-5.1) mmol/L Chloride 103 (96-108) mmol/L Carbon Dioxide 24 (22-29) mmol/L Anion Gap 16 (12-20) BUN 68 H (9-16) mg/dL Creatinine 5.89 H* (0.5-1.4) mg/dL Estim Creat Clear Calc 18.5 Estimated GFR 11 Random Glucose 96 (60-115) mg/dL Calcium 6.8 L (8.4-10.2) mg/dL Total Bilirubin 0.3 (0.0-1.0) mg/dL AST 25 (5-37) U/L ALT 26 (0-40) U/L Alkaline Phosphatase 65 (39-117) U/L Troponin I High Sens 60.0 H (<3.5-35.0) ng/L B-Natriuretic Peptide 1837 H (<100) pg/mL Total Protein 6.2 L (6.5-8.0) g/dL Albumin 3.4 L (3.5-5.0) g/dL Independent Interpretation I performed an independent interpretation of an: EKG and Plain X-Ray Interpretation: Normal sinus rhythm heart rate 71 beats per minute left ventricular hypertrophy nonspecific STT wave changes QTC [address]-elevation Radiology Impression Discussion of test interpretation with radiology: I have reviewed the radiologist's reading. Critical Care Time Critical Care Time Critical Care Time: Yes Total Critical Care Time: 60 Attestation: The patient was critically ill with a high probability of imminent or life threatening deterioration. I spent greater than 65??minutes of discontinuous time evaluating the patient,delivering critical care at the bedside, discussing and evaluating pertinent data with consultants. Critical care time does not include time spent performing separately billable procedures or teaching. Total time spent performing critical care was ?60??minutes. Discharge Plan Discharge Clinical Impression: Acute renal failure superimposed on chronic kidney disease, Cocaine use disorder, New onset of congestive heart failure Patient Disposition: Admitted As Inpatient
[2025-01-27] VITALS (11 sets, daily range): BP systolic 127–181; BP diastolic 76–97; PULSE 69–85; RESP 14–24; TEMP 36.2–36.9; O2SAT 92–98; BMI 39.7
[2025-01-27] MEDS: Potassium Chloride/H20 10 MEQ/100 ML PIGGYBACK 100 MEQ IV (00:16)
[2025-01-27] MEDS: Potassium Bicarbonate/Cit AC 25 MEQ TABLET.EFF PO (00:16)
[2025-01-27] MEDS: Furosemide 100 MG/10 ML VIAL 80 MG IVPUSH (00:17)
--- NOTE | 2025-01-27 00:31 | PC.NURSE ---
pt changed over into hospital attire, placed on bed side monitor, Iv placed medicated per mar.
--- NOTE | 2025-01-27 02:36 | P.HPHOSP_ITS ---
History of Present Illness Date of Service: 01/27/25 Attending physician on admission: April Pathak Chief Complaint: lower ext edema, SOB on exertion Patient is a 39-year-old male with past medical history of chronic cocaine use, hypertension, hyperlipidemia, obesity, TRESSA on CPAP, tobacco dependence, marijuana use daily, constipation, status post ventral hernia repair with current unreducible hernia, bilateral inguinal hernia repair presents to the emergency department with increasing swelling in lower extremities and shortness of breath especially with exertion. Patient is aware that he has chronic kidney disease and renal function is currently reduced be on patient's baseline. Potassium on admission was 2.9. Patient has so far received 10 mEq of potassium in the emergency department. In addition patient's chest x-ray shows evidence of cardiomegaly and pulmonary edema. BNP is also elevated, 1837. Troponin negative. Patient is currently not complaining of chest pain, shortness of breath at rest. Patient states he last used cocaine 3 days prior and honestly admits that he is sick and tired of using cocaine. Patient does have pretty good insight as to the medical impact he is experiencing secondary to cocaine use including renal issues and now heart failure. Patient states he was not aware that he had issues with heart failure. Patient has tried detox in the past but then once out continues to use cocaine. Patient denies any fentanyl or heroin use or IV drug use. Based on patient's clinical presentation and worsening renal failure, Lasix infusion we will start at 5 milligrams/hour. Patient will receive additional 80 mEq of potassium. Nephrology and Cardiology will be consulted. In addition patient has a previous ventral hernia repair with current hernia that is reducible and slightly painful on palpation only. Will order CT without contrast. WIll order General surgery consult Review of Systems 2 Review of Systems: Patient currently denies any chest pain, shortness of breath at rest, abdominal pain except with palpation of the ventral hernia. Patient denies any headache, visual changes is reporting dry mouth. Patient reports occasional intermittent left leg restlessness he attributes to the edema. Yes all other systems are reviewed and are negative [facility] Medical History Hyperlipidemia Hypertension Tobacco use Cognitive capacity: Alert and orientated x3 Functional capacity: independent ambulation Surgical History H/O inguinal hernia repair H/O ventral hernia repair Social History Household Members: Spouse Household Members Other:: unknown if any other household members Housing: Unknown / Unable to assess Do you presently have visiting nurse or other home services: No Patient Tobacco Use Status: Current everyday Tobacco user Tobacco use type: Cigarette e-Cigarette/Vaping Use: Never Used Second Hand Smoke Exposure: No Substance Use Type: Crack/Cocaine and Marijuana Advance Directives: No Advance Directives Information Provided: Yes Do you have a plan to hurt others: No Plan service: No Sexual orientation: Straight/Heterosexual Ebola Risk: Travel/Contact With Anyone From Affected Area/s: No Has Patient Experienced Ebola Symptoms: No Meds Allergies Allergy/AdvReac Type Severity Reaction Status Date / Time No Known Allergies Allergy Verified 01/26/25 22:27 Active Medications: Current Medications Acetaminophen (Acetaminophen 325 Mg Tablet) 650 mg PO Q6H PRN PRN Reason: Pain, Mild 1-3,fever,headache Albuterol/Ipratropium (Albuterol/Iprat 2.5/0.5mg 3 Ml Ampul.Neb) 3 ml INHALE Q4H PRN PRN Reason: Shortness of Breath/Wheezing Calcium Carbonate (Calcium Carbonate 750 Mg Tab.Chew) 750 mg PO Q4H PRN PRN Reason: Heartburn Heparin Sodium (Porcine) (Heparin Sodium,Porcine 5,000 Unit/Ml Vial) 5,000 unit SUBCUT Q8H DANIEL Furosemide 200 mg/ Sodium (Chloride) 100 mls @ 2.5 mls/hr IVCONT .Q24H DANIEL Magnesium Hydroxide (Milk Of Magnesia 30 Ml Oral.Susp) 30 ml PO DAILY PRN PRN Reason: Constipation Melatonin (Melatonin 3 Mg Tablet) 6 mg PO BEDTIME PRN PRN Reason: Insomnia Ondansetron HCl (Ondansetron Hcl 4 Mg/2 Ml Vial) 4 mg IVPUSH Q8H PRN PRN Reason: Nausea and Vomiting Senna (Sennosides 8.6 Mg Tablet) 17.2 mg PO BEDTIME DANIEL Sodium Chloride (0.9 % Sodium Chloride Flush 3 Ml Syringe) 3 ml IVFLUSH QSHIFT DANIEL Physical Exam 2 Vital Signs and Narrative: Vital Signs: Last Vital Signs Temp 98.1 F 01/26/25 22:26 Pulse 71 01/26/25 22:26 Resp 20 01/26/25 22:26 BP 141/90 H 01/27/25 00:17 Pulse Ox 97 01/26/25 22:26 O2 Del Method Room Air 01/26/25 22:26 BMI result Body Mass Index 37.6 Alert and orientated X3, able to participate in interview. Neuro: CN II-X11 intact, no deficits, visual acuity intact EYES: PERRLA, EOM intact, conjunctiva pink ENT: hearing intact, no issues with swallowing, uvula midline, lips moist, nares patent no epistaxis Cardiac: S1 S2 RRR, no murmur, JVD present moderate nonpitting edema in Lower ext bilateral Pulmonary: lungs diminished bilaterally, no wheeze or rhonchi heard Abdominal: BS active in all 4 quadrants, no guarding, tenderness, rebounding, notable large ventral hernia nonreducible and tender with palpation only MSK: strength 5/5 upper and lower extremities : no CVA tenderness no bladder distension Extremities: Moderate nonpitting edema in lower extremities, PT and DP pulses palpable +2 Psych: mood anxious, judgement and insight good, patient admits that he is tired of living this life using cocaine, patient is not currently suicidal but has had suicidal ideations in the past with no specific plan Skin: Small circular abrasions on both legs possibly excoriations. Results Labs 01/27/25 02:49 01/26/25 22:45 Labs: Laboratory Results - last 24 hr 01/26/25 22:45 MCV 77.2 L MCH 24.4 L MCHC 31.6 RDW 15.9 Plt Count 153 L MPV 9.7 Immature Gran % (Auto) 0.3 Neut % (Auto) 75.2 H Lymph % (Auto) 14.4 L [place] % (Auto) 6.6 Eos % (Auto) 3.0 Baso % (Auto) 0.5 Lymph # (Auto) 0.9 L [place] # (Auto) 0.4 Eos # (Auto) 0.2 Baso # (Auto) 0.0 Abs Immat Gran (auto) 0.02 Absolute Neuts (auto) 4.5 Absolute Nucleated RBC 0.000 Nucleated RBC % (auto) 0.0 Anion Gap 16 Estim Creat Clear Calc 18.5 Estimated GFR 11 Random Glucose 96 Calcium 6.8 L Total Bilirubin 0.3 AST 25 ALT 26 Alkaline Phosphatase 65 B-Natriuretic Peptide 1837 H Total Protein 6.2 L Albumin 3.4 L ECG Attestation: I personally reviewed and interpreted this ECG as follows: (Normal sinus rhythm left atrial enlargement left ventricular hypertrophy ST and T-wave abnormalities) Prior ECG tracings: available for review Imaging Radiologist's Impressions: Chest x-ray IMPRESSION: 1. Small bilateral pleural effusions. 2. Cardiomegaly. 3. Pulmonary opacities are nonspecific and may reflect pulmonary edema. Assessment and Plan (1) New onset of congestive heart failure: Status: Acute Plan Patient is a 39-year-old male with past medical history of chronic cocaine use, hypertension, hyperlipidemia, obesity, TRESSA on CPAP, tobacco dependence, marijuana use daily, constipation, status post ventral hernia repair with current unreducible hernia, bilateral inguinal hernia repair presents to the emergency department with complaints of increasing edema in the lower extremities and shortness of breath especially with exertion. Patient being admitted for IV Lasix infusion, potassium supplementation, expert consultation with Nephrology and Cardiology as well as General surgery for a incidental ventral hernia. CINDY on chronic kidney disease -nephrology consulted -patient is producing urine -Lasix infusion at 5 milligrams/hour initiated -Hypokalemia on admission -potassium supplementation include IV and p.o., BMP in the a.m. -telemetry -measure intake and output -daily weights -fluid allowance 1500mls -avoid hypotension -avoid nephrotoxic medications including NSAIDs New onset CHF with exacerbation -BNP 1837 -echo ordered -Cardiology consulted -daily weights -low-sodium diet -measure intake and output, goal -1 L -fluid allowance 1500 mL -patient counseled on use of cocaine and how this contributes to heart failure development as well as uncontrolled hypertension Ventral hernia with tenderness on palpation -CT of the abdomen without contrast -General surgery consulted -Low suspicion for bowel involvement -This was a previous repair attempt Hypokalemia -potassium 2.9 on admission -supplementation continues -telemetry Hypocalcemia -await repeat calcium before supplementing -Will check vitamin-D level and intact PTH -patient also takes divalproex, await Nephrology review, will check level Cocaine use disorder -patient admits that he is tired of living this life using cocaine. Patient has tried detox in the past. Patient does have insight into the relationship of cocaine use and his current medical problems. -addictions counseled -Pt denies SI HI today, has had hx of SI in the past with no specific plan Tobacco dependence -patient deferred the nicotine patch or gum, has not had a cigarette in 3 days -patient counseled on the benefits of smoking cessation Marijuana use daily -no concerns with withdrawal at this time Hypertension -avoid hypotension secondary to CINDY on CKD -continue amlodipine -hold hydrochlorothiazide and lisinopril due to CINDY Hyperlipidemia -continue statin, LFTs are stable TRESSA on CPAP -CPAP ordered DVT prophylaxis: Heparin subQ PPI prophylaxis: Omeprazole Med rec pending Full Code status Quality Stroke Does the patient have a stroke diagnosis?: No Reason for No Anti-thrombotic by Day Two: N/A - Med Ordered VTE Prior VTE?: No VTE Risk Level:: Medical - moderate - high VTE Device Contraindication: N/A - Device Ordered VTE Drug Contraindication: N/A - Med Ordered
[2025-01-27] MEDS: Furosemide 200 MG in 0.9 % Sodium Chloride 80 ML IVCONT (02:46)
[2025-01-27 02:53] LABS: MANUAL DIFF FLAG NO
[2025-01-27] MEDS: Potassium Chloride ER 20 MEQ TAB.ER.PRT 80 MEQ PO (02:53)
[2025-01-27 02:54] LABS: Basophils Percent Auto 0.5 % (0-2); Eosinophils Absolute Auto 0.2 X10*3/uL (0.0-0.4); Eosinophils Percent Auto 2.6 % (0-4); Hematocrit 28.9 % (42.0-52.0); Hemoglobin 9.1 g/dl (14.0-18.0); Imm Gran Abs Auto 0.02 X10*3/uL (0.00-0.03); Imm Gran Pct Auto 0.3 % (0.0-0.4); Lymphocytes Absolute Auto 0.8 X10*3/uL (1.2-4.9); Lymphocytes Percent Auto 13.7 % (20-40); Mean Corpuscular HGB Conc 31.5 g/dl (31.0-36.0); Mean Corpuscular Hemoglobin 24.3 pg (27.0-33.0); Mean Corpuscular Volume 77.3 fL (80.0-98.0); Mean Platelet Volume 10.1 fL (9.4-12.4); Monocytes Absolute Auto 0.4 X10*3/uL (0.1-1.2); Monocytes Percent Auto 6.3 % (2-11); Neutrophils Absolute Auto 4.5 x10*3/uL (2.0-8.3); Neutrophils Percent Auto 76.6 % (45-73); Platelet Count 168 X10*3/uL (160-400); Red Blood Count 3.74 X10*6/uL (4.60-5.80); Red Cell Distribution Width 15.8 % (11.0-16.0); White Blood Count 5.9 X10*3/uL (4.8-10.8)
[2025-01-27] MEDS: Heparin Sodium,Porcine 5,000 UNIT/ML VIAL 5000 UNIT SUBCUT ×3 (02:54→18:41)
[2025-01-27 02:55] LABS: Appearance Urine Clear; Color Urine Yellow; Glucose Urine UA Negative (Negative); Leukocyte Esterase Urine Negative (Negative); Nitrite Urine Negative (Negative); PH 5.5 (5.0-9.0); UMIC TRIGGER UACC YES; Urine Blood Negative (Negative); Urine Ketones Negative (Negative); Urine Protein 100 (2+) mg/dL (Neg-Trace)
[2025-01-27 03:01] LABS: Bacteria Urine None Seen (None Seen); Hyaline Casts Urine 0-2 /LPF (0-2); RBC Urine 0-2 /HPF (0-2); Squamous Epithelial Cell Urine 0-2 /HPF (0-2); WBC Urine 0-5 /HPF (0-5)
--- NOTE | 2025-01-27 03:02 | PC.NURSE ---
medicated per mar.
--- NOTE | 2025-01-27 03:03 | PC.NURSE ---
1200cc of urine out.
--- NOTE | 2025-01-27 03:10 | PC.NURSE ---
pt found to be sitting on the edge of the bed uncomfortable/in pain as he states he is having extremely painful leg cramps. pt assisted back into bed. dr. jacobsen notified/aware. will administer medication when ordered. otherwise, lasix infusing @ 5mg/hr at this time. plan of care ongoing. call shine placed within reach.
--- NOTE | 2025-01-27 03:13 | PC.NURSE ---
lasix drip started and verified with charge nurse Di
[2025-01-27 03:21] LABS: Alanine Aminotransferase 41 U/L (0-40); Albumin Level 3.3 g/dL (3.5-5.0); Anion Gap 17 (12-20); Aspartate Amino Transferase 55 U/L (5-37); Bilirubin Total 0.2 mg/dL (0.0-1.0); Blood Urea Nitrogen 73 mg/dL (9-16); Calcium 6.8 mg/dL (8.4-10.2); Carbon Dioxide 23 mmol/L (22-29); Chloride 103 mmol/L (96-108); Creatinine Clr Calc Pharmacy 18.2; Estimated Glomerular Filt Rate 11; Glucose Random 105 mg/dL (60-115); Sodium 140 mmol/L (135-145); Total Protein 6.2 g/dL (6.5-8.0)
[2025-01-27 03:29] LABS: Alkaline Phosphatase 69 U/L (39-117)
[2025-01-27] MEDS: TiZANidine HCL 4 MG TABLET PO (03:33)
[2025-01-27] MEDS: Magnesium Sulfate/H2O 2 GM/50 ML PIGGYBACK IV (03:33)
--- NOTE | 2025-01-27 03:47 | PC.NURSE ---
additional 18gIV placed in the right hand. bilateral IV access wrapped w/ curex for safety precautions d/t pt remaining restless while in bed. medication administered per provider order. effectiveness pending.
--- NOTE | 2025-01-27 04:02 | PC.NURSE ---
home medications found bedside by tech. medications secured by this RN. medication inventory count created. no controlled medications noted within the 5 bottles of medications from home. unable to bring medication to pharmacy at this time d/t pharmacy being closed. will bring medications to pharmacy when able.
[2025-01-27 04:44] LABS: Free T4 (Free Thyroxine) 1.08 ng/dL (0.71-1.85); Thyroid Stimulating Hormone 1.52 uIU/mL (0.32-4.0)
[2025-01-27 05:22] LABS: Iron 30 mcg/dL (45-160); Percent Iron Saturation 15 % (15-50); Total Iron Binding Capacity 206 mcg/dL (228-428); Unsaturated Iron Binding 176 ug/dL
[2025-01-27 05:30] LABS: Parathyroid Hormone Intact 373.1 pg/mL (8.7-77.1)
[2025-01-27 05:33] LABS: Valproate < 12.5 mcg/mL (50.0-100.0)
--- NOTE | 2025-01-27 07:00 | CA_ITS ---
Transthoracic Echocardiogram Patient (Last, First, Middle): Troy Beltran, Gender: Male Date of : 1985 Age: 39 Procedure Date: 01/27/2025 Procedure Type: Transthoracic Echocardiogram Location: ER Height: 165.1 cm Weight: 107.96 kg BSA: 2.13 m2 Heart Rate: bpm BP: 153 / 90 mmHg Guest Services Agent: TRISTIAN Trujillo MD: Yelitza Plummer [facility] Customer Assistant: Teo Neil MD Symptoms: New onset CHF Study Quality: Technically Difficult ECG Rhythm: Sinus Conclusions: - 1. Technically limited study due to patient being uncooperative 2. At least moderately dilated left ventricle with moderately reduced LV ejection fraction of 35-40% with grade 2 diastolic dysfunction 3. Severely dilated left atrium 4. Limited evaluation of cardiac valves although cardiac valvular Dopplers appear to be within normal limits 5. Mildly elevated right ventricular systolic pressure with significantly elevated right atrial pressures 6. At least small pericardial effusion near the left ventricle Findings Procedure Information The study quality is limited by limitations of a portable exam and an uncooperative patient. Left Ventricle Moderately increased left ventricular cavity size. There is mildly increased left ventricular wall thickness. The left ventricular systolic function is moderately decreased. The visually estimated ejection fraction is between 35 40%. Spectral Doppler is indicative of a pseudonormal filling pattern. E/E prime ratio is >15, consistent with elevated filling pressures. Evidence suggests grade II (moderate) diastolic dysfunction. Right Ventricle The right ventricle was not well visualized. Atria The left atrium is severely dilated. Interatrial shunt cannot be excluded. The right atrium was not well visualized. Aortic Valve The aortic valve structure and function is likely normal. There is no aortic valve stenosis. There is no aortic valve regurgitation. Mitral Valve The mitral valve was not well visualized. There is trace mitral valve regurgitation. There is no mitral valve stenosis. Pulmonic Valve The pulmonic valve was not well visualized. Tricuspid Valve There is mild tricuspid valve regurgitation. The right ventricular systolic pressure is 43 mmHg. Significantly elevated right atrial pressure. Mild pulmonary hypertension is present. Great Vessels The aorta was not well visualized. The pulmonary artery was not well visualized. Venous The inferior vena cava is moderately dilated and does not collapse with inspiration. Pericardium/Pleural There is a small pericardial effusion. Prior Study Comparison No prior study available for comparison. Measurements 2D Linear Measurements IVSd: 1.33 0.6-0.9/0.6-1.0 cm LVIDd: 6.72 3.9-5.3/4.2-5.9 cm LVIDd Index: 3.15 2.4-3.2/2.2-3.1 cm/m2 LVIDs: 5.51 2.0-3.6 cm LVPWd: 1.28 0.7-1.1 cm Ao Root: 3.20 2.1-3.5 cm LV Mass: 529.05 67-162/88-224 g LV Mass Index: 248.38 43-95/49-115 g/m2 LVOT Diam: 2.20 3.0+(-)1.3 cm Mitral Valve MV VTI: 0.37 MV Pk Paco: 1.61 MV Mn Paco: 0.91 MV Pk Grad: 10.00 MV Mn Grad: 4.00 MV Pk E: 1.34 MV PK A: 0.74 MV Decel Time: 166.00 E/A: 1.80 E'Lateral: 8.49 E'Medial: 5.33 E/E' Med: 25.10 E/E' Lat: 15.80 PHT: 49.00 MVA PHT: 4.49 MVA Continuity: 2.47 Decel [place]: 8.04 Aortic Valve AoV Pk Paco: 1.69 AoV Mn Paco: 1.17 AoV VTI: 0.31 AoV Pk Grad: 11.00 Aov Mn Grad: 6.00 AMNA Cont.VTI: 2.91 LVOT LVOT Pk Paco: 1.27 LVOT Mn Paco: 0.84 LVOT VTI: 0.24 LVOT Pk Grad: 6.00 LVOT Mn Grad: 3.00 LVOT Diam: 2.20 LVOT Area: 3.80 Diastolic Function MV Pk E: 1.34 MV Pk A: 0.74 E/A: 1.80 E'Medial: 5.33 E/E' Med: 25.10 E' Laterial: 8.49 E/E' Lat: 15.80 Right Ventricle TAPSE (mm): 23.80 TVS' Paco: 18.40 Tricuspid Valve TR Pk Paco: 2.66 TR Pk Grad: 28.00 RA Press: 15.00 RVSP: 43.00 Great Vessels Aorta Ao Root-2D: 3.20 2.0-3.7 cm Ao Asc: 3.40 2.1-3.4 cm Updated in Other Vendor System with Status of Final Teo Neil MD electronically signed on 01/27/2025 12:27:30 PM with status of Final
[2025-01-27] MEDS: 0.9 % Sodium Chloride Flush 3 ML SYRINGE IVFLUSH ×2 (07:33→22:27)
[2025-01-27 07:46] LABS: Cocaine Screen Urine POSITIVE (Not Detect)
[2025-01-27 07:54] LABS: Creatinine Urine 25.54 mg/dL; Protein/Creatinine Ratio, Ur 1.45 (<0.2); Total Protein Urine Random 37 mg/dL (<12)
--- NOTE | 2025-01-27 09:13 | PHA.MEDREC ---
Addendum entered by Osmani Nicholson RPh 01/27/25 15:30: Reviewed by [facility] Original Note: Pharmacy Consult ? Medication Reconciliation Pharmacy has completed the medication reconciliation. Spoke to pt to confirm meds.
[2025-01-27 09:22] LABS: Anion Gap 17 (12-20); Blood Urea Nitrogen 66 mg/dL (9-16); Calcium 6.9 mg/dL (8.4-10.2); Carbon Dioxide 23 mmol/L (22-29); Chloride 105 mmol/L (96-108); Creatinine Clr Calc Pharmacy 20.4; Estimated Glomerular Filt Rate 12; Glucose Random 100 mg/dL (60-115); Potassium 4.1 mmol/L (3.3-5.1); Sodium 141 mmol/L (135-145)
[2025-01-27 09:29] LABS: Troponin-I High Sensitivity 51.5 ng/L (<3.5-35.0)
--- NOTE | 2025-01-27 10:02 | P.CONCA_ITS ---
History of Present Illness History of Present Illness Date of Service: 01/27/25 Requesting physician: Vanessa Jain Consult reason: congestive heart failure Chief complaint: Leg Swelling Narrative: I was consulted to see Troy in cardiology consultation today for findings suggestive of new onset congestive heart failure. He is a 39-year-old male history obtained from him. He has recently moved to [place] over the last month and most of his care as it been at [facility]. He said he has been told in the past that he has had cardiac issue in his on bumetanide therapy and says that he might have cocaine induced cardiac disorder although do not have any records related to that. He also has chronic kidney disease, hypertension, obstructive sleep apnea, ventral hernia. Patient came to the hospital with progressively increasing bilateral lower extremity edema and fluid gain. Does not report any weight gain. He also denies any significant shortness of breath says and he still remains active and denies any orthopnea, PND. He came in with very advanced kidney dysfunction with creatinine in the mid 5 range with BNP not having any chest pain. Denies any prolonged palpitation irregular heartbeat. He said since moved from [place] to [place] he has a damage to his CPAP equipment and currently not using CPAP. He said he sleeps on his belly to counteract the symptoms of sleep apnea. Patient denies any recent use of cocaine. Alcohol use. Patient has been admitted for management of congestive heart failure on Lasix drip. Recorded 2900 cc of negative output since he has been here. Review of Systems 2 Constitutional: Constitutional: Reports snoring and Reports stops breathing during sleep Eyes: Eyes: Reports no additional eye complaints Cardiovascular: Cardiovascular: Denies chest pain, Reports leg edema, Denies lightheadedness, Denies Loss of Consciousness, Denies palpitations, Denies dyspnea on exertion and Denies orthopnea Respiratory: Respiratory: Reports no additional respiratory complaints, Denies dyspnea on exertion and Reports snoring Gastrointestinal: Gastrointestinal: Reports no additional gastrointestinal complaints Musculoskeletal: Musculoskeletal: Reports no additional musculoskeletal complaints Integumentary/Breasts: Skin/Breast: Reports system reviewed and no additional complaints, except as docu Neurologic: Reports system reviewed and no additional complaints, except as documented Psychiatric: Psychiatric: Reports no additional psychiatric complaints Endocrine: Endocrine: Reports no additional endocrine complaints and Denies palpitations PMFSH Past Medical History Medical History Hyperlipidemia Hypertension Tobacco use Surgical History Surgical History H/O inguinal hernia repair H/O ventral hernia repair Social History Social History Household Members: Spouse Household Members Other:: unknown if any other household members Housing: Unknown / Unable to assess Do you presently have visiting nurse or other home services: No Patient Tobacco Use Status: Current someday Tobacco user Tobacco use type: Cigarette Smoked in Last 30 Days: No e-Cigarette/Vaping Use: Never Used Second Hand Smoke Exposure: No Use of substances other than those prescribed or required for medical reasons: No Substance Use Type: Crack/Cocaine and Marijuana Advance Directives: No Advance Directives Information Provided: Yes Do you have a plan to hurt others: No Plan Nutrition Risks: No Nutritional Risk service: No Sexual orientation: Straight/Heterosexual Travel History Ebola Risk: Travel/Contact With Anyone From Affected Area/s: No Has Patient Experienced Ebola Symptoms: No Meds Allergies Allergy/AdvReac Type Severity Reaction Status Date / Time No Known Allergies Allergy Verified 01/26/25 22:27 Active Medications: Current Medications Acetaminophen (Acetaminophen 325 Mg Tablet) 650 mg PO Q6H PRN PRN Reason: Pain, Mild 1-3,fever,headache Albuterol/Ipratropium (Albuterol/Iprat 2.5/0.5mg 3 Ml Ampul.Neb) 3 ml INHALE Q4H PRN PRN Reason: Shortness of Breath/Wheezing Calcium Carbonate (Calcium Carbonate 750 Mg Tab.Chew) 750 mg PO Q4H PRN PRN Reason: Heartburn Heparin Sodium (Porcine) (Heparin Sodium,Porcine 5,000 Unit/Ml Vial) 5,000 unit SUBCUT Q8H [facility] Last Admin: 01/27/25 02:54 Dose: 5,000 unit Furosemide 200 mg/ Sodium (Chloride) 100 mls @ 2.5 mls/hr IVCONT .Q24H [facility] Last Admin: 01/27/25 02:46 Dose: 5 mg/hr, 2.5 mls/hr Magnesium Hydroxide (Milk Of Magnesia 30 Ml Oral.Susp) 30 ml PO DAILY PRN PRN Reason: Constipation Melatonin (Melatonin 3 Mg Tablet) 6 mg PO BEDTIME PRN PRN Reason: Insomnia Ondansetron HCl (Ondansetron Hcl 4 Mg/2 Ml Vial) 4 mg IVPUSH Q8H PRN PRN Reason: Nausea and Vomiting Senna (Sennosides 8.6 Mg Tablet) 17.2 mg PO BEDTIME DANIEL Sodium Chloride (0.9 % Sodium Chloride Flush 3 Ml Syringe) 3 ml IVFLUSH QSHIFT DANIEL Last Admin: 01/27/25 07:33 Dose: 3 ml Home Medications ?Medication ?Instructions ?Recorded ?Confirmed ?Last Taken ?Type bumetanide 1 mg tablet 1 mg PO BID 01/27/25 01/27/25 Unknown History clonidine HCl 0.1 mg tablet 0.1 mg PO TID 01/27/25 01/27/25 Unknown History hydralazine 50 mg tablet 50 mg PO BID 01/27/25 01/27/25 Unknown History labetalol 200 mg tablet 200 mg PO TID 01/27/25 01/27/25 Unknown History prazosin 2 mg capsule 2 mg PO BEDTIME 01/27/25 01/27/25 Unknown History spironolactone 50 mg tablet 50 mg PO DAILY 01/27/25 01/27/25 Unknown History Physical Exam 2 Vital Signs: Vital Signs: Last Vital Signs Temp 97.6 F 01/27/25 09:43 Pulse 69 01/27/25 09:43 Resp 14 01/27/25 09:43 BP 153/90 H 01/27/25 09:43 Pulse Ox 98 01/27/25 09:43 O2 Del Method Room Air 01/27/25 09:43 BMI result Body Mass Index 39.7 Const: General: cooperative, comfortable, alert and in distress mild and respiratory Nutritional Appearance: obese Orientation/consciousness: p atient oriented x3 HEENT: Head: Yes normocephalic and Yes atraumatic Neck: Neck: Yes trachea midline, Yes supple and Yes JVD Resp: Auscultation: breath sounds absent bilateral (Bases) Cardio: Jugular venous distension: JVD Rate: regular rate Rhythm: r egular rhythm Heart sounds: S1 normal heart sound present, S2 normal heart sound present, no click, no gallops, no murmurs and no rubs GI: Inspection: Yes distended Auscultation: normal bowel sounds Skin: General skin exam: no rashes or lesions noted Neuro: General: patient oriented x3 and no focal motor deficits Extrem: General: No clubbing, No cyanosis and Yes edema Objective Labs and Meds 01/27/25 02:49 01/27/25 09:03 Lab results: Laboratory Results - last 24 hr 01/26/25 01/27/25 01/27/25 22:45 02:49 02:50 WBC 6.0 5.9 RBC 3.56 L 3.74 L Hgb 8.7 L 9.1 L Hct 27.5 L 28.9 L MCV 77.2 L 77.3 L MCH 24.4 L 24.3 L MCHC 31.6 31.5 RDW 15.9 15.8 Plt Count 153 L 168 MPV 9.7 10.1 Immature Gran % (Auto) 0.3 0.3 Neut % (Auto) 75.2 H 76.6 H Lymph % (Auto) 14.4 L 13.7 L Desha % (Auto) 6.6 6.3 Eos % (Auto) 3.0 2.6 Baso % (Auto) 0.5 0.5 Lymph # (Auto) 0.9 L 0.8 L Desha # (Auto) 0.4 0.4 Eos # (Auto) 0.2 0.2 Baso # (Auto) 0.0 0.0 Abs Immat Gran (auto) 0.02 0.02 Absolute Neuts (auto) 4.5 4.5 Absolute Nucleated RBC 0.000 0.000 Nucleated RBC % (auto) 0.0 0.0 Sodium 140 140 Potassium 2.9 L* 3.0 L Chloride 103 103 Carbon Dioxide 24 23 Anion Gap 16 17 BUN 68 H 73 H Creatinine 5.89 H* 5.98 H* Estim Creat Clear Calc 18.5 18.2 Estimated GFR 11 11 Random Glucose 96 105 Calcium 6.8 L 6.8 L Magnesium 2.0 Iron TIBC % Saturation Unsat Iron Binding Total Bilirubin 0.3 0.2 AST 25 55 H ALT 26 41 H Alkaline Phosphatase 65 69 Troponin I High Sens 60.0 H B-Natriuretic Peptide 1837 H Total Protein 6.2 L 6.2 L Albumin 3.4 L 3.3 L TSH 1.52 Free T4 1.08 PTH Intact Urine Color Yellow Urine Appearance Clear Urine pH 5.5 Ur Specific [place] 1.010 Urine Protein 100 (2+) H Urine Glucose (UA) Negative Urine Ketones Negative Urine Blood Negative Urine Nitrite Negative Ur Leukocyte Esterase Negative Urine RBC 0-2 Urine WBC 0-5 Ur Squamous Epith Cells 0-2 Urine Bacteria None Seen Hyaline Casts 0-2 U Random Total Protein Ur Random Sodium Urine Creatinine Protein/Creatinin Ratio Valproic Acid Urine Cocaine Screen 01/27/25 01/27/25 01/27/25 04:59 07:32 09:03 WBC RBC Hgb Hct MCV MCH MCHC RDW Plt Count MPV Immature Gran % (Auto) Neut % (Auto) Lymph % (Auto) [place]ha % (Auto) Eos % (Auto) Baso % (Auto) Lymph # (Auto) [place]ha # (Auto) Eos # (Auto) Baso # (Auto) Abs Immat Gran (auto) Absolute Neuts (auto) Absolute Nucleated RBC Nucleated RBC % (auto) Sodium 141 Potassium 4.1 D Chloride 105 Carbon Dioxide 23 Anion Gap 17 BUN 66 H Creatinine 5.49 H* Estim Creat Clear Calc 20.4 Estimated GFR 12 Random Glucose 100 Calcium 6.9 L Magnesium Iron 30 L TIBC 206 L % Saturation 15 Unsat Iron Binding 176 Total Bilirubin AST ALT Alkaline Phosphatase Troponin I High Sens 51.5 H B-Natriuretic Peptide Total Protein Albumin TSH Free T4 PTH Intact 373.1 H Urine Color Urine Appearance Urine pH Ur Specific [place] Urine Protein Urine Glucose (UA) Urine Ketones Urine Blood Urine Nitrite Ur Leukocyte Esterase Urine RBC Urine WBC Ur Squamous Epith Cells Urine Bacteria Hyaline Casts U Random Total Protein 37 H Ur Random Sodium 83.0 Urine Creatinine 25.54 Protein/Creatinin Ratio 1.45 H Valproic Acid < 12.5 L Urine Cocaine Screen POSITIVE H Assessment and Plan (1) Decompensated heart failure: Status: Acute Decompensated congestive heart failure with predominantly right-sided heart failure syndrome with significant fluid overload on clinical exam. Clinically he denies any clear orthopnea symptoms although appears visually to be mildly short of breath. Unclear whether this is related to right-sided dysfunction related to pulmonary hypertension from untreated sleep apnea and/or LV systolic and diastolic dysfunction related to his prior cocaine use. Requires continued diuresis. I would continue with IV Lasix drips at this point time. Continue monitor strict intake and output chart. Also continue monitor renal function. Obtain an echocardiogram to further guide therapy. Given his advanced kidney dysfunction options of treatment are limited but consider hydralazine therapy for afterload reduction. Management was discussed with him details. Avoidance of drug use in the future was discussed. He is agreeable. Will follow with you Procedures Date of Service Date of Service: 01/27/25
--- NOTE | 2025-01-27 10:39 | PM.CNGS ---
History of Present Illness Consult details Consult date: 01/27/25 Narrative: 39-year-old male admitted for signs of CHF with bilateral lower extremity edema along with shortness of breath. He also has been noted to have large upper abdominal wall hernia. I was therefore consulted He says that he has had this for more than 6 years now. He admits to having had hernia surgery in [facility] more than a year ago and he says that this hernia recurred right after. He denies GI complaints. Denies any nausea or vomiting. He admits to polysubstance abuse. He has chronic kidney disease and CHF as well. He has obstructive sleep apnea. He admits to shortness of breath with exertion He denies pain on the hernia site. He seems to have poor level of function at home. Review of Systems Constitutional: Constitutional: Denies chills and Denies fever(s) Cardiovascular: Cardiovascular: Reports dyspnea and Reports dyspnea on exertion Respiratory: Respiratory: Reports dyspnea and Reports dyspnea on exertion Gastrointestinal: Gastrointestinal: Denies abdominal pain Genitourinary: Genitourinary: Denies difficulty urinating PMFSH Past Medical History Medical History Hyperlipidemia Hypertension Tobacco use Surgical History Surgical History H/O inguinal hernia repair H/O ventral hernia repair Social History Social History Household Members: Spouse Household Members Other:: unknown if any other household members Housing: Unknown / Unable to assess Do you presently have visiting nurse or other home services: No Patient Tobacco Use Status: Current someday Tobacco user Tobacco use type: Cigarette e-Cigarette/Vaping Use: Never Used Second Hand Smoke Exposure: No Substance Use Type: Crack/Cocaine and Marijuana service: No Sexual orientation: Straight/Heterosexual Travel History Ebola Risk: Travel/Contact With Anyone From Affected Area/s: No Has Patient Experienced Ebola Symptoms: No Meds Allergies Allergy/AdvReac Type Severity Reaction Status Date / Time No Known Allergies Allergy Verified 01/26/25 22:27 Active Medications: Current Medications Acetaminophen (Acetaminophen 325 Mg Tablet) 650 mg PO Q6H PRN PRN Reason: Pain, Mild 1-3,fever,headache Albuterol/Ipratropium (Albuterol/Iprat 2.5/0.5mg 3 Ml Ampul.Neb) 3 ml INHALE Q4H PRN PRN Reason: Shortness of Breath/Wheezing Calcium Carbonate (Calcium Carbonate 750 Mg Tab.Chew) 750 mg PO Q4H PRN PRN Reason: Heartburn Heparin Sodium (Porcine) (Heparin Sodium,Porcine 5,000 Unit/Ml Vial) 5,000 unit SUBCUT Q8H [facility] Last Admin: 01/27/25 10:32 Dose: 5,000 unit Furosemide 200 mg/ Sodium (Chloride) 100 mls @ 2.5 mls/hr IVCONT .Q24H [facility] Last Admin: 01/27/25 02:46 Dose: 5 mg/hr, 2.5 mls/hr Magnesium Hydroxide (Milk Of Magnesia 30 Ml Oral.Susp) 30 ml PO DAILY PRN PRN Reason: Constipation Melatonin (Melatonin 3 Mg Tablet) 6 mg PO BEDTIME PRN PRN Reason: Insomnia Ondansetron HCl (Ondansetron Hcl 4 Mg/2 Ml Vial) 4 mg IVPUSH Q8H PRN PRN Reason: Nausea and Vomiting Senna (Sennosides 8.6 Mg Tablet) 17.2 mg PO BEDTIME [facility] Sodium Chloride (0.9 % Sodium Chloride Flush 3 Ml Syringe) 3 ml IVFLUSH QSHIFT [facility] Last Admin: 01/27/25 07:33 Dose: 3 ml Home Medications ?Medication ?Instructions ?Recorded ?Confirmed ?Last Taken ?Type bumetanide 1 mg tablet 1 mg PO BID 01/27/25 01/27/25 Unknown History clonidine HCl 0.1 mg tablet 0.1 mg PO TID 01/27/25 01/27/25 Unknown History hydralazine 50 mg tablet 50 mg PO BID 01/27/25 01/27/25 Unknown History labetalol 200 mg tablet 200 mg PO TID 01/27/25 01/27/25 Unknown History prazosin 2 mg capsule 2 mg PO BEDTIME 01/27/25 01/27/25 Unknown History spironolactone 50 mg tablet 50 mg PO DAILY 01/27/25 01/27/25 Unknown History Physical Exam Vital Signs: Vital Signs: Last Vital Signs Temp 97.6 F 01/27/25 09:43 Pulse 69 01/27/25 09:43 Resp 14 01/27/25 09:43 BP 153/90 H 01/27/25 09:43 Pulse Ox 98 01/27/25 09:43 O2 Del Method Room Air 01/27/25 09:43 BMI result Body Mass Index 39.7 Const: Other: Morbidly obese, appears to have some shortness of breath Resp: Other: Some shortness of breath Cardio: Rate: regular rate GI: Other: Obese, soft, with a large upper abdominal wall hernia, nontender, partially reducible Results Labs 01/27/25 02:49 01/28/25 07:50 Labs: Abnormal lab results 01/26/25 01/27/25 01/27/25 Range/Units 22:45 02:49 02:50 RBC 3.56 L 3.74 L (4.60-5.80) X10*6/uL Hgb 8.7 L 9.1 L (14.0-18.0) g/dl Hct 27.5 L 28.9 L (42.0-52.0) % MCV 77.2 L 77.3 L (80.0-98.0) fL MCH 24.4 L 24.3 L (27.0-33.0) pg Plt Count 153 L (160-400) X10*3/uL Neut % (Auto) 75.2 H 76.6 H (45-73) % Lymph % (Auto) 14.4 L 13.7 L (20-40) % Lymph # (Auto) 0.9 L 0.8 L (1.2-4.9) X10*3/uL Potassium 2.9 L* 3.0 L (3.3-5.1) mmol/L BUN 68 H 73 H (9-16) mg/dL Creatinine 5.89 H* 5.98 H* (0.5-1.4) mg/dL Calcium 6.8 L 6.8 L (8.4-10.2) mg/dL Iron (45-160) mcg/dL TIBC (228-428) mcg/dL AST 55 H (5-37) U/L ALT 41 H (0-40) U/L Troponin I High Sens 60.0 H (<3.5-35.0) ng/L B-Natriuretic Peptide 1837 H (<100) pg/mL Total Protein 6.2 L 6.2 L (6.5-8.0) g/dL Albumin 3.4 L 3.3 L (3.5-5.0) g/dL PTH Intact (8.7-77.1) pg/mL Urine Protein 100 (2+) H (Neg-Trace) mg/dL U Random Total Protein (<12) mg/dL Protein/Creatinin Ratio (<0.2) Valproic Acid (50.0-100.0) mcg/mL Urine Cocaine Screen (Not Detect) 01/27/25 01/27/25 01/27/25 Range/Units 04:59 07:32 09:03 RBC (4.60-5.80) X10*6/uL Hgb (14.0-18.0) g/dl Hct (42.0-52.0) % MCV (80.0-98.0) fL MCH (27.0-33.0) pg Plt Count (160-400) X10*3/uL Neut % (Auto) (45-73) % Lymph % (Auto) (20-40) % Lymph # (Auto) (1.2-4.9) X10*3/uL Potassium (3.3-5.1) mmol/L BUN 66 H (9-16) mg/dL Creatinine 5.49 H* (0.5-1.4) mg/dL Calcium 6.9 L (8.4-10.2) mg/dL Iron 30 L (45-160) mcg/dL TIBC 206 L (228-428) mcg/dL AST (5-37) U/L ALT (0-40) U/L Troponin I High Sens 51.5 H (<3.5-35.0) ng/L B-Natriuretic Peptide (<100) pg/mL Total Protein (6.5-8.0) g/dL Albumin (3.5-5.0) g/dL PTH Intact 373.1 H (8.7-77.1) pg/mL Urine Protein (Neg-Trace) mg/dL U Random Total Protein 37 H (<12) mg/dL Protein/Creatinin Ratio 1.45 H (<0.2) Valproic Acid < 12.5 L (50.0-100.0) mcg/mL Urine Cocaine Screen POSITIVE H (Not Detect) Short CBC 01/26/25 01/27/25 Range/Units 22:45 02:49 WBC 6.0 5.9 (4.8-10.8) X10*3/uL Hgb 8.7 L 9.1 L (14.0-18.0) g/dl Hct 27.5 L 28.9 L (42.0-52.0) % Plt Count 153 L 168 (160-400) X10*3/uL BMP 01/26/25 01/27/25 01/27/25 22:45 02:49 09:03 Sodium 140 140 141 Potassium 2.9 L* 3.0 L 4.1 D Chloride 103 103 105 Carbon Dioxide 24 23 23 BUN 68 H 73 H 66 H Creatinine 5.89 H* 5.98 H* 5.49 H* Calcium 6.8 L 6.8 L 6.9 L Liver Function 01/26/25 01/27/25 Range/Units 22:45 02:49 Total Bilirubin 0.3 0.2 (0.0-1.0) mg/dL AST 25 55 H (5-37) U/L ALT 26 41 H (0-40) U/L Alkaline Phosphatase 65 69 (39-117) U/L Albumin 3.4 L 3.3 L (3.5-5.0) g/dL Urine 01/27/25 Range/Units 02:50 Urine Color Yellow Urine Appearance Clear Urine pH 5.5 (5.0-9.0) Ur Specific [place] 1.010 (1.005-1.025) Urine Protein 100 (2+) H (Neg-Trace) mg/dL Urine Glucose (UA) Negative (Negative) mg/dL All other labs normal. Assessment and Plan (1) Ventral hernia: Status: Acute 39-year-old male with multiple medical problems including CHF, polysubstance abuse, morbid obesity, admitted for decompensation of his heart failure He also has acute renal failure with chronic kidney disease He has a large abdominal wall hernia in the upper abdomen. His CAT scan shows some bowel loops although he is non obstructed. This is also partially reducible. He denies any pain or tenderness I would not recommend surgical treatment for this abdominal hernia at this time. He has multiple medical problems that are prohibitive for any surgical procedures. He is currently not obstructed His abdominal exam is otherwise benign. I will check on him again tomorrow. Procedures Date of Service Date of Service: 01/31/25
[2025-01-27 10:41] LABS: Amphetamine Screen Urine Not Detected (Not Detect); Barbiturates, Urine Not Detected (Not Detect); Benzodiazepines Screen Urine Not Detected (Not Detect); Buprenorphine Scr Not Detected (Not Detect); Cannabinoid Screen Urine Not Detected (Not Detect); Fentanyl, urine Not Detected (Not Detect); Methadone Screen, Urine Not Detected (Not Detect); Opiate Screen Urine Not Detected (Not Detect); Oxycodone Screen Urine Not Detected (Not Detect); Phencyclidine Screen Urine Not Detected (Not Detect)
--- NOTE | 2025-01-27 11:06 | PC.NURSE ---
Report received. Taken over care at this time.
[2025-01-27] MEDS: hydrALAZINE HCl 50 MG TABLET PO ×2 (11:55→22:27)
--- NOTE | 2025-01-27 14:48 | PM.EVENT ---
Event Note Date of Service: 01/27/25 Event Note: Seen and examined this morning Follow-up for CHF Patient awake alert, denies any shortness of breath at this time Continues to have persistent 3+ pitting edema bilateral lower extremities This is a 39-year-old male with past medical history of chronic cocaine use, hypertension, hyperlipidemia, obesity, TRESSA on CPAP, tobacco dependence, marijuana use daily, constipation, status post ventral hernia repair with current unreducible hernia, bilateral inguinal hernia repair presents to the emergency department with complaints of increasing edema in the lower extremities and shortness of breath especially with exertion. Patient being admitted for IV Lasix infusion, potassium supplementation, expert consultation with Nephrology and Cardiology as well as General surgery for a incidental ventral hernia. CINDY on chronic kidney disease, unknown baseline ?cardiorenal No obstruction on CT scan Continue Lasix drip Nephrology following Follow BMP acute on chronic combined diastolic and systolic CHF Echocardiogram with EF 35-40% with grade 2 diastolic dysfunction Hold baseline bumex Continue Lasix drip Low-sodium diet, daily weight, follow Is&Os Cardiology consulted hold BB as cocaine + and unclear compliance with meds Mild transaminitis ?due to fluid overload Follow LFTs Ventral hernia with tenderness on palpation No evidence of obstruction Seen by General surgery, not a good candidate for acute surgical intervention due to multiple medical problems, acute CHF Hypokalemia Improved with replacement Hypocalcemia When corrected for hypoalbuminemia 7.5 Cocaine use disorder Addiction Medicine consult Tobacco dependence pt deferred NRT Smoking cessation advised Hypertension Hold labetalol, spironolactone, amlodipine Continue clonidine, hydralazine Follow blood pressure closely TRESSA on CPAP CPAP qhs DVT prophylaxis: Heparin subQ PPI prophylaxis: Omeprazole Time Spent With Patient Time: Total time managing care of this patient today ____ minutes.
[2025-01-27] MEDS: amLODIPine Besylate 10 MG TABLET PO (15:54)
[2025-01-27] MEDS: cloNIDine HCL 0.1 MG TABLET PO ×2 (15:54→22:27)
[2025-01-27] MEDS: Prazosin HCL 1 MG CAPSULE 2 MG PO (22:26)
[2025-01-27] MEDS: Sennosides 8.6 MG TABLET 17.2 MG PO (22:26)
[2025-01-28] MEDS: Furosemide 200 MG in 0.9 % Sodium Chloride 80 ML IVCONT (01:30)
[2025-01-28] MEDS: Heparin Sodium,Porcine 5,000 UNIT/ML VIAL 5000 UNIT SUBCUT ×2 (01:30→09:24)
[2025-01-28 04:00] VITALS: BP 151/80; PULSE 89; RESP 20; TEMP 36.6; O2SAT 93
[2025-01-28 05:27] VITALS: BMI 38.6
[2025-01-28 05:38] VITALS: BMI 38.6
[2025-01-28 07:20] VITALS: BP 165/91; PULSE 82; RESP 20; TEMP 36.4; O2SAT 95
--- NOTE | 2025-01-28 08:58 | MHC.CM.PN ---
Pt. lives with his , he sees a PCP at [facility]. [facility], he does not know the name of the provider. He does not have home health services. For DME, he has a CPAP machine. HCP discussed, pt. declined to complete form. to transport pt. home at [place], DCP: home, self care. CM to follow for DC needs.
[2025-01-28 09:07] LABS: B Type Natriuretic Peptide 2405 pg/mL (<100)
[2025-01-28 09:15] LABS: Anion Gap 15 (12-20); Blood Urea Nitrogen 67 mg/dL (9-16); Calcium 7.5 mg/dL (8.4-10.2); Carbon Dioxide 27 mmol/L (22-29); Chloride 104 mmol/L (96-108); Glucose Random 81 mg/dL (60-115); Sodium 143 mmol/L (135-145)
[2025-01-28 09:18] LABS: Creatinine Clr Calc Pharmacy 22.2; Estimated Glomerular Filt Rate 13; Potassium 2.8 mmol/L (3.3-5.1)
[2025-01-28] MEDS: amLODIPine Besylate 10 MG TABLET PO (09:23)
[2025-01-28] MEDS: cloNIDine HCL 0.1 MG TABLET PO ×2 (09:23→15:32)
[2025-01-28] MEDS: hydrALAZINE HCl 50 MG TABLET PO (09:23)
--- NOTE | 2025-01-28 09:35 | P.PNGS_ITS ---
Subjective Subjective Date of Service: 01/31/25 Interval history: Looks well Denies abdominal pain Says he is ready to go home States he feels much better overall Physical Exam 2 Vital Signs: Vital Signs: Last Vital Signs Temp 97.6 F 01/28/25 07:20 Pulse 82 01/28/25 07:20 Resp 20 01/28/25 07:20 BP 165/91 H 01/28/25 07:20 Pulse Ox 95 01/28/25 07:20 O2 Del Method CPAP 01/28/25 07:20 BMI result Body Mass Index 38.6 Const: General: comfortable and no acute distress Resp: Effort & Inspection: normal respiratory effort Cardio: Rate: regular rate GI: Other: Large upper abdominal hernia, partially reducible, nontender Palpation (GI): Soft to palpation, not firm, nontender and no guarding Objective Data Active Medications Acetaminophen (Acetaminophen 325 Mg Tablet) 650 mg PO Q6H PRN PRN Reason: Pain, Mild 1-3,fever,headache Albuterol/Ipratropium (Albuterol/Iprat 2.5/0.5mg 3 Ml Ampul.Neb) 3 ml INHALE Q4H PRN PRN Reason: Shortness of Breath/Wheezing Amlodipine Besylate (Amlodipine Besylate 10 Mg Tablet) 10 mg PO DAILY [facility]; Protocol Last Admin: 01/28/25 09:23 Dose: 10 mg Documented By: YVETTE Calcium Carbonate (Calcium Carbonate 750 Mg Tab.Chew) 500 mg PO BID PRN PRN Reason: Heartburn Clonidine HCl (Clonidine Hcl 0.1 Mg Tablet) 0.1 mg PO TID [facility]; Protocol Last Admin: 01/28/25 09:23 Dose: 0.1 mg Documented By: YVETTE Heparin Sodium (Porcine) (Heparin Sodium,Porcine 5,000 Unit/Ml Vial) 5,000 unit SUBCUT Q8H [facility] Last Admin: 01/28/25 09:24 Dose: 5,000 unit Documented By: YVETTE Hydralazine HCl (Hydralazine Hcl 50 Mg Tablet) 50 mg PO BID [facility]; Protocol Last Admin: 01/28/25 09:23 Dose: 50 mg Documented By: YVETTE Furosemide 200 mg/ Sodium (Chloride) 100 mls @ 2.5 mls/hr IVCONT .Q24H [facility] Last Admin: 01/28/25 01:30 Dose: 5 mg/hr, 2.5 mls/hr Documented By: PHILIPPE Magnesium Hydroxide (Milk Of Magnesia 30 Ml Oral.Susp) 30 ml PO DAILY PRN PRN Reason: Constipation Melatonin (Melatonin 3 Mg Tablet) 6 mg PO BEDTIME PRN PRN Reason: Insomnia Ondansetron HCl (Ondansetron Hcl 4 Mg/2 Ml Vial) 4 mg IVPUSH Q8H PRN PRN Reason: Nausea and Vomiting Prazosin HCl (Prazosin Hcl 1 Mg Capsule) 2 mg PO BEDTIME [facility]; Protocol Last Admin: 01/27/25 22:26 Dose: 2 mg Documented By: PHILIPPE Senna (Sennosides 8.6 Mg Tablet) 17.2 mg PO BEDTIME [facility] Last Admin: 01/27/25 22:26 Dose: 17.2 mg Documented By: PHILIPPE Sodium Chloride (0.9 % Sodium Chloride Flush 3 Ml Syringe) 3 ml IVFLUSH QSHIFT [facility] Last Admin: 01/28/25 09:24 Dose: Not Given Documented By: YVETTE Non-Admin Reason: IV Running Labs 01/27/25 02:49 01/28/25 07:50 Labs: Laboratory Results - last 24 hr 01/27/25 01/28/25 07:32 07:50 Anion Gap 15 Estim Creat Clear Calc 22.2 Estimated GFR 13 Random Glucose 81 Calcium 7.5 L D B-Natriuretic Peptide 2405 H Urine Opiates Screen Not Detected Ur Buprenorphine Scrn Not Detected Ur Oxycodone Screen Not Detected Urine Methadone Screen Not Detected Urine Fentanyl Screen Not Detected Ur Barbiturates Screen Not Detected Ur Phencyclidine Scrn Not Detected Ur Amphetamines Screen Not Detected U Benzodiazepines Scrn Not Detected Urine Cocaine Screen POSITIVE H U Marijuana (THC) Screen Not Detected Procedures Date of Service Date of Service: 01/31/25 Progress Note: A&P Assessment and plan (1) Ventral hernia: Status: Acute Assessment and Plan: He has a chronic hernia after repair about 6 years ago Not obstructed He is asymptomatic Abdomen is soft and benign He presents with significant perioperative risks currently Would hold off on repair The rest of management as per hospitalist service Time Spent With Patient Time: Total time managing care of this patient today ____ minutes. Quality Stroke Does the patient have a stroke diagnosis?: No Reason for No Anti-thrombotic by Day Two: N/A - Med Ordered VTE Prior VTE?: No VTE Risk Level:: Medical - moderate - high VTE Device Contraindication: N/A - Device Ordered VTE Drug Contraindication: N/A - Med Ordered
[2025-01-28] MEDS: Potassium Chloride ER 20 MEQ TAB.ER.PRT 40 MEQ PO (10:58)
[2025-01-28 11:01] VITALS: BP 173/89; PULSE 80; RESP 20; TEMP 37.2; O2SAT 95
[2025-01-28] MEDS: carvediloL 3.125 MG TABLET PO (12:52)
[2025-01-28] MEDS: Potassium Chloride/H20 10 MEQ/100 ML PIGGYBACK 100 MEQ IV ×2 (12:53→14:34)
--- NOTE | 2025-01-28 13:04 | PM.PNCARD ---
Subjective Subjective Date of Service: 01/28/25 Principal diagnosis: Decompensated CHF Interval history: Patient has diuresed well about-3500 cc. BNP has gone up. Creatinine slightly improved. Blood pressure remains elevated. Breathing better. Echocardiogram shows moderate LV systolic dysfunction LVEF of 35-40%. Review of Systems Constitutional: Reports no additional constitutional complaints Cardiovascular: Denies chest pain, Reports leg edema (Much improved), Denies lightheadedness, Denies Loss of Consciousness and Denies dyspnea Respiratory: Denies no additional respiratory complaints and Denies dyspnea Denies system reviewed and no additional complaints, except as documented Physical Exam Vital Signs: Last Vital Signs Temp 99.0 F 01/28/25 11:01 Pulse 80 01/28/25 11:01 Resp 20 01/28/25 11:01 BP 173/89 H 01/28/25 11:01 Pulse Ox 95 01/28/25 11:01 O2 Del Method Room Air 01/28/25 11:01 BMI result Body Mass Index 38.6 Const General: cooperative, comfortable, alert and in distress mild and respiratory Nutritional Appearance: obese Orientation/consciousness: patient oriented x3 HEENT Head: Yes normocephalic and Yes atraumatic Neck Neck: Yes trachea midline, Yes supple and Yes JVD Resp Auscultation: breath sounds absent bilateral (Bases) Cardio Jugular venous distension: JVD Rate: regular rate Rhythm: regular rhythm Heart sounds: S1 normal heart sound present, S2 normal heart sound present, no click, no gallops, no murmurs and no rubs GI Inspection: Yes distended Auscultation: normal bowel sounds Skin General skin exam: no rashes or lesions noted Neuro General: patient oriented x3 and no focal motor deficits Extrem General: No clubbing, No cyanosis and Yes edema (Much improved) Objective Labs and Meds 01/27/25 02:49 01/28/25 07:50 Lab results: Laboratory Results - last 24 hr 01/28/25 07:50 Sodium 143 Potassium 2.8 L* D Chloride 104 Carbon Dioxide 27 Anion Gap 15 BUN 67 H Creatinine 4.97 H* Estim Creat Clear Calc 22.2 Estimated GFR 13 Random Glucose 81 Calcium 7.5 L D B-Natriuretic Peptide 2405 H Progress Note: A&P Assessment and plan (1) Decompensated heart failure: Status: Acute Assessment and Plan: Decompensated congestive heart failure with moderate LV systolic dysfunction most likely hypertensive. Will need ischemic workup at some point time. However he needs continued diuresis but will switch him to Bumex 2 mg IV b.i.d. and then eventually need p.o. Bumex rather than Lasix for better efficacy. Also increase hydralazine to 100 mg b.i.d.. Add carvedilol 3.125 mg b.i.d. to his regimen. If blood pressure remains elevated would consider adding isosorbide to his regimen as well as a vaso dilator. Importance of treating his medical condition and heart failure was discussed. Will need ischemic workup as an outpatient. Continue CPAP therapy. Will follow with you Time Spent With Patient Time: Total time managing care of this patient today ____ minutes. Progress Note: Quality Stroke Does the patient have a stroke diagnosis?: No Reason for No Anti-thrombotic by Day Two: N/A - Med Ordered Procedures Date of Service Date of Service: 01/28/25
--- NOTE | 2025-01-28 13:39 | P.PNIM_ITS ---
Subjective Subjective Date of Service: 01/28/25 Interval History: seen and examined this morning follow up for cindy, chf no sob, leg edema improving but continues to be fluid overloaded Review of Systems Review of Systems: Yes all other systems are reviewed and are negative Constitutional Constitutional: Denies chills and Denies fever(s) Cardiovascular Cardiovascular: Denies chest pain Physical Exam 2 Vital Signs: Vital Signs: Last Vital Signs Temp 99.0 F 01/28/25 11:01 Pulse 80 01/28/25 11:01 Resp 20 01/28/25 11:01 BP 173/89 H 01/28/25 11:01 Pulse Ox 95 01/28/25 11:01 O2 Del Method Room Air 01/28/25 11:01 BMI result Body Mass Index 38.6 Const: General: comfortable, no acute distress, alert and awake Nutritional Appearance: obese Orientation/consciousness: patient oriented x3 Resp: Other: diminished throughout Effort & Inspection: normal respiratory effort, able to speak in complete sentences, no respiratory distress and no use of accessory muscles Cardio: Rate: regular rate GI: Inspection: No distended Palpation (GI): Soft to palpation Neuro: General: patient oriented x3, moves all extremities and CN's II-XI intact bilaterally Extrem: Other: b/l pitting edema to knees - improving Objective Data Active Medications Acetaminophen (Acetaminophen 325 Mg Tablet) 650 mg PO Q6H PRN PRN Reason: Pain, Mild 1-3,fever,headache Albuterol/Ipratropium (Albuterol/Iprat 2.5/0.5mg 3 Ml Ampul.Neb) 3 ml INHALE Q4H PRN PRN Reason: Shortness of Breath/Wheezing Amlodipine Besylate (Amlodipine Besylate 10 Mg Tablet) 10 mg PO DAILY [facility]; Protocol Last Admin: 01/28/25 09:23 Dose: 10 mg Documented By: YVETTE Bumetanide (Bumetanide 1 Mg/4 Ml Vial) 2 mg IVPUSH BID@0900,1700 [facility]; Protocol Calcium Carbonate (Calcium Carbonate 750 Mg Tab.Chew) 500 mg PO BID PRN PRN Reason: Heartburn Carvedilol (Carvedilol 3.125 Mg Tablet) 3.125 mg PO BID [facility]; Protocol Last Admin: 01/28/25 12:52 Dose: 3.125 mg Documented By: YVETTE Clonidine HCl (Clonidine Hcl 0.1 Mg Tablet) 0.1 mg PO TID [facility]; Protocol Last Admin: 01/28/25 09:23 Dose: 0.1 mg Documented By: YVETTE Heparin Sodium (Porcine) (Heparin Sodium,Porcine 5,000 Unit/Ml Vial) 5,000 unit SUBCUT Q8H [facility] Last Admin: 01/28/25 09:24 Dose: 5,000 unit Documented By: YVETTE Hydralazine HCl (Hydralazine Hcl 50 Mg Tablet) 100 mg PO BID [facility]; Protocol Magnesium Hydroxide (Milk Of Magnesia 30 Ml Oral.Susp) 30 ml PO DAILY PRN PRN Reason: Constipation Melatonin (Melatonin 3 Mg Tablet) 6 mg PO BEDTIME PRN PRN Reason: Insomnia Ondansetron HCl (Ondansetron Hcl 4 Mg/2 Ml Vial) 4 mg IVPUSH Q8H PRN PRN Reason: Nausea and Vomiting Potassium Chloride (Potassium Chloride Er 20 Meq Tab.Er.Prt) 40 meq PO BID [facility] Stop: 01/28/25 21:01 Last Admin: 01/28/25 10:58 Dose: 40 meq Documented By: YVETTE Prazosin HCl (Prazosin Hcl 1 Mg Capsule) 2 mg PO BEDTIME [facility]; Protocol Last Admin: 01/27/25 22:26 Dose: 2 mg Documented By: PHILIPPE Senna (Sennosides 8.6 Mg Tablet) 17.2 mg PO BEDTIME [facility] Last Admin: 01/27/25 22:26 Dose: 17.2 mg Documented By: PHILIPPE Sodium Chloride (0.9 % Sodium Chloride Flush 3 Ml Syringe) 3 ml IVFLUSH QSHIFT [facility] Last Admin: 01/28/25 09:24 Dose: Not Given Documented By: YVETTE Non-Admin Reason: IV Running Labs 01/27/25 02:49 01/28/25 07:50 Labs: Laboratory Results - last 24 hr 01/28/25 07:50 Anion Gap 15 Estim Creat Clear Calc 22.2 Estimated GFR 13 Random Glucose 81 Calcium 7.5 L D B-Natriuretic Peptide 2405 H Assessment and Plan (1) Acute renal failure superimposed on chronic kidney disease: Status: Acute (2) Decompensated heart failure: Status: Acute Plan This is a 39-year-old male with past medical history of chronic cocaine use, hypertension, hyperlipidemia, obesity, TRESSA on CPAP, tobacco dependence, marijuana use daily, constipation, status post ventral hernia repair with current unreducible hernia, bilateral inguinal hernia repair presents to the emergency department with complaints of increasing edema in the lower extremities and shortness of breath especially with exertion. Patient being admitted for IV Lasix infusion, potassium supplementation, expert consultation with Nephrology and Cardiology as well as General surgery for a incidental ventral hernia. acute on chronic combined diastolic and systolic CHF Echocardiogram with EF 35-40% with grade 2 diastolic dysfunction Hold baseline bumex initially treated with Lasix drip with good response, change to IV bid push bumex Low-sodium diet, daily weight, follow Is&Os Cardiology following increase hydralazine, add carvedilol (labetolol has been on hold, stop on d/c) consider imdur if bp remains elevated CINDY on chronic kidney disease, unknown baseline ?cardiorenal No obstruction on CT scan renal function improving with diuresis Nephrology following Follow BMP Mild transaminitis ?due to fluid overload Follow LFTs Ventral hernia with tenderness on palpation No evidence of obstruction Seen by General surgery, not a good candidate for acute surgical intervention due to multiple medical problems, acute CHF Hypokalemia due to diuretics replace and follow Hypocalcemia higher when corrected for hypoalbuminemia improving Cocaine use disorder Addiction Medicine consult - not interested in quitting cocaine use currently Tobacco dependence pt deferred NRT Smoking cessation advised Hypertension Hold labetalol, spironolactone resumed on amlodipine, clonidine; hydralazine dose increased started on coreg Follow blood pressure closely TRESSA on CPAP CPAP qhs DVT prophylaxis: Heparin subQ Patient requires ongoing inpatient stay for management of acute on chronic CHF requiring diuretics, close monitoring of electrolytes, cardiac monitoring Quality Stroke Does the patient have a stroke diagnosis?: No Reason for No Anti-thrombotic by Day Two: N/A - Med Ordered VTE Prior VTE?: No VTE Risk Level:: Medical - moderate - high VTE Device Contraindication: N/A - Device Ordered VTE Drug Contraindication: N/A - Med Ordered
[2025-01-28 15:24] VITALS: BP 144/87; PULSE 83; RESP 18; TEMP 37.2; O2SAT 92
--- NOTE | 2025-01-28 16:54 | PM.DS ---
DS: Providers Provider Date of Service: 01/28/25 Date of admission: 01/27/25 01:08 Date of discharge: 01/28/25 Primary care physician: Unknown Physician Consults: 01/27/25 02:06 Consult to Nephrology Routine Consulting [place] [facility] Reason for consultation: CINDY on CKD Has provider been notified: No 01/27/25 02:49 Consult to General Surgery Routine Consulting Provider[place] [facility] [place] Reason for consultation: On reducible ventral hernia with tenderness on palpation Has provider been notified: No 01/27/25 02:53 Consult to Cardiology Routine Consulting Provider[place] [facility] Reason for consultation: New onset CHF Has provider been notified: No 01/27/25 03:12 Addiction Medicine Provider Routine Consulting Provider: [facility] Reason for consultation: cocaine use disorder Attending physician on discharge: Gold Dong Discharging clinician: Vanessa Jain DS: Diagnosis Discharge Diagnosis (1) Acute renal failure superimposed on chronic kidney disease: Status: Acute (2) Decompensated heart failure: Status: Acute DS: Summary Hospital Course Hospital Course: From H&P on the day of admission Patient is a 39-year-old male with past medical history of chronic cocaine use, hypertension, hyperlipidemia, obesity, TRESSA on CPAP, tobacco dependence, marijuana use daily, constipation, status post ventral hernia repair with current unreducible hernia, bilateral inguinal hernia repair presents to the emergency department with increasing swelling in lower extremities and shortness of breath especially with exertion. Patient is aware that he has chronic kidney disease and renal function is currently reduced be on patient's baseline. Potassium on admission was 2.9. Patient has so far received 10 mEq of potassium in the emergency department. In addition patient's chest x-ray shows evidence of cardiomegaly and pulmonary edema. BNP is also elevated, 1837. Troponin negative. Patient is currently not complaining of chest pain, shortness of breath at rest. Patient states he last used cocaine 3 days prior and honestly admits that he is sick and tired of using cocaine. Patient does have pretty good insight as to the medical impact he is experiencing secondary to cocaine use including renal issues and now heart failure. Patient states he was not aware that he had issues with heart failure. Patient has tried detox in the past but then once out continues to use cocaine. Patient denies any fentanyl or heroin use or IV drug use. Based on patient's clinical presentation and worsening renal failure, Lasix infusion we will start at 5 milligrams/hour. Patient will receive additional 80 mEq of potassium. Nephrology and Cardiology will be consulted. In addition patient has a previous ventral hernia repair with current hernia that is reducible and slightly painful on palpation only. Will order CT without contrast. WIll order General surgery consult acute on chronic combined diastolic and systolic CHF Echocardiogram with EF 35-40% with grade 2 diastolic dysfunction Hold baseline bumex initially treated with Lasix drip with good response, change to IV bid push bumex Low-sodium diet, daily weight, follow Is&Os Cardiology following increase hydralazine, add carvedilol (labetolol has been on hold, stop on d/c) consider imdur if bp remains elevated CINDY on chronic kidney disease, unknown baseline ?cardiorenal No obstruction on CT scan renal function improving with diuresis Nephrology following Follow BMP Mild transaminitis ?due to fluid overload Follow LFTs Ventral hernia with tenderness on palpation No evidence of obstruction Seen by General surgery, not a good candidate for acute surgical intervention due to multiple medical problems, acute CHF Hypokalemia due to diuretics replace and follow Hypocalcemia higher when corrected for hypoalbuminemia improving Cocaine use disorder Addiction Medicine consult - not interested in quitting cocaine use currently Tobacco dependence pt deferred NRT Smoking cessation advised Hypertension Hold labetalol, spironolactone resumed on amlodipine, clonidine; hydralazine dose increased started on coreg Follow blood pressure closely unfortunately the patient elected to leave against medical advice. He was alert and oriented at the time of departure and it was discussed extensively with him all the acute medical issues, he understands and wishes to proceed with leaving. Time Attestation Discharge Coordination Time (in mins): 30 Quality: Safe Use of Opioids Does Pt have an Active Cancer Diagnosis on the Problem List?: No Quality: Stroke Does the patient have a stroke diagnosis?: No Physical Exam Vital Signs: Vital Signs: Last Vital Signs Temp 98.9 F 01/28/25 15:24 Pulse 83 01/28/25 15:24 Resp 18 01/28/25 15:24 BP 144/87 H 01/28/25 15:24 Pulse Ox 92 01/28/25 15:24 O2 Del Method Room Air 01/28/25 15:24 BMI result Body Mass Index 38.6 Const: General: comfortable, no acute distress, alert and awake Nutritional Appearance: obese Orientation/consciousness: patient oriented x3 Resp: Other: diminished throughout Effort & Inspection: normal respiratory effort, able to speak in complete sentences, no respiratory distress and no use of accessory muscles Cardio: Rate: regular rate GI: Inspection: No distended Palpation (GI): Soft to palpation Neuro: General: patient oriented x3, moves all extremities and CN's II-XI intact bilaterally Extrem: Other: b/l pitting edema to knees - improving DS: Data Data Completed and Pending Labs on day of discharge: Laboratory Results - last 24 hr 01/28/25 07:50 Sodium 143 Potassium 2.8 L* D Chloride 104 Carbon Dioxide 27 Anion Gap 15 BUN 67 H Creatinine 4.97 H* Estim Creat Clear Calc 22.2 Estimated GFR 13 Random Glucose 81 Calcium 7.5 L D B-Natriuretic Peptide 2405 H Discharge Plan Discharge Patient Disposition: Left Against Medical Advice Discharge Diagnosis: acute on chronic chf cindy cardiorenal syndrome hypokalemia Referrals: Physician,Unknown J [Physician] - 1 Week Discharge Medications: No Action amlodipine 10 mg Tablet 10 mg PO DAILY Qty: 30 0RF Protocol: Hold for SBP< HOLD for SBP < : 90 clonidine HCl 0.1 mg tablet 0.1 mg PO TID labetalol 200 mg tablet 200 mg PO TID bumetanide 1 mg tablet 1 mg PO BID hydralazine 50 mg tablet 50 mg PO BID prazosin 2 mg capsule 2 mg PO BEDTIME spironolactone 50 mg tablet 50 mg PO DAILY Discharge Orders: Discharge Order (Routine); Ordered 02/01/25 Ordered By: Vanessa Jain Print Language: Samoan Care Plan Goals: left ama Health Concerns: CINDY on CKD Acute on chronic heart failure Uncontrolled hypertension Hypokalemia Plan of Treatment: Take all medications as prescribed Call PCP to schedule follow-up appointment Call Nephrology to schedule follow-up appointment Call Cardiology to schedule follow-up appointment Assessment: Left against medical advice Discharge Date/Time: 01/28/25 17:18
[2025-01-29 19:49] LABS: Myeloperoxidase Antibody <1.0 AI; Proteinase 3 PR3 Antibodies <1.0 AI
[2025-02-01 19:07] LABS: VITAMIN D (1,25 OH) D3 11 pg/mL; Vit D (1,25-Dihydroxy) Total 11 pg/mL (18-72); Vitamin D (1,25 OH) D2 <8 pg/mL
== END 2025-01-28 17:18 | disposition left against medical advice (07) | DRG 194 ==
LOC: HO.ED 01-27 00:41 → HO.EDOVER 01-27 02:22 → HO.IMC 01-27 13:52
PROVIDERS: Internal Medicine Nephrology; Nurse Practitioner Family; Admitting Provider Student in an Organized Health Care Education/Training Program; Emergency Provider Internal Medicine; PCP Physician Assistant; Visit Provider Physician Assistant Medical
DX: I13.0 Hypertensive heart and chronic kidney disease with heart failure and stage 1 through stage 4 chronic kidney disease, or unspecified chronic kidney disease (principal); N17.9 Acute kidney failure, unspecified; E83.51 Hypocalcemia; F17.210 Nicotine dependence, cigarettes, uncomplicated; I50.43 Acute on chronic combined systolic (congestive) and diastolic (congestive) heart failure; F14.90 Cocaine use, unspecified, uncomplicated; E66.01 Morbid (severe) obesity due to excess calories; I27.20 Pulmonary hypertension, unspecified; K43.9 Ventral hernia without obstruction or gangrene; N18.9 Chronic kidney disease, unspecified; Z68.38 Body mass index [BMI] 38.0-38.9, adult; E87.6 Hypokalemia; F19.10 Other psychoactive substance abuse, uncomplicated; G47.33 Obstructive sleep apnea (adult) (pediatric); Z71.6 Tobacco abuse counseling; Z79.899 Other long term (current) drug therapy
CPT/HCPCS: 36415; 71046; 74176; 80048; 80053; 80164; 80307; 81001; 82570; 82652; 83540; 83735; 83880; 83970; 84156; 84300; 84439; 84443; 84484; 85025; 86021; 93005; 93306; 94660; 99285; J1644; J1938; J3475; J3480; Q9957; S9485

== ENCOUNTER → 2025-01-26 22:35 | Outpatient (BNV) | payer MEDICAID, SELFPAY | PROVIDERS: Admitting Provider Student in an Organized Health Care Education/Training Program; Emergency Provider Internal Medicine; Visit Provider Internal Medicine Cardiovascular Disease | DX: R94.31 Abnormal electrocardiogram [ECG] [EKG] (principal) | CPT/HCPCS: 93010 ==

== ENCOUNTER → 2025-01-26 22:45 | Outpatient (BNV) | payer MEDICAID, SELFPAY | PROVIDERS: Emergency Provider Internal Medicine; Visit Provider Radiology Neuroradiology | DX: I51.7 Cardiomegaly (principal) | CPT/HCPCS: 71046 ==

== ENCOUNTER 2025-01-27 01:08 | Outpatient (BNV) | payer MEDICAID, SELFPAY | END 2025-01-27 08:03 | PROVIDERS: Admitting Provider Student in an Organized Health Care Education/Training Program; Emergency Provider Internal Medicine; Visit Provider Radiology Diagnostic Radiology | DX: K43.6 Other and unspecified ventral hernia with obstruction, without gangrene (principal) | CPT/HCPCS: 74176 ==

== ENCOUNTER → 2025-01-27 01:08 | Outpatient (BNV) | payer MEDICAID, SELFPAY | PROVIDERS: Admitting Provider Student in an Organized Health Care Education/Training Program; Emergency Provider Internal Medicine; Visit Provider Nurse Practitioner Family | DX: N17.9 Acute kidney failure, unspecified (principal); N18.9 Chronic kidney disease, unspecified; I50.9 Heart failure, unspecified | CPT/HCPCS: 99223; 99239; 99499 ==

== ENCOUNTER → 2025-01-27 01:08 | Outpatient (BNV) | payer MEDICAID, SELFPAY | PROVIDERS: Admitting Provider Student in an Organized Health Care Education/Training Program; Emergency Provider Internal Medicine; Visit Provider Internal Medicine Cardiovascular Disease | DX: I50.9 Heart failure, unspecified (principal) | CPT/HCPCS: 99233 ==

== ENCOUNTER → 2025-01-27 01:08 | Outpatient (BNV) | payer MEDICAID, SELFPAY | PROVIDERS: Admitting Provider Student in an Organized Health Care Education/Training Program; Emergency Provider Internal Medicine; Visit Provider Surgery | DX: K43.9 Ventral hernia without obstruction or gangrene (principal) | CPT/HCPCS: 99222; 99232 ==

== ENCOUNTER 2025-04-19 11:33 | Emergency (ER) | payer MEDICAID, SELFPAY ==
--- NOTE | 2025-04-19 11:47 | ED.GENADULT ---
HPI - General Adult General Chief complaint: Eye Problems Stated complaint: r eye issue swollen Related Data Home Medications ?Medication ?Instructions ?Recorded ?Confirmed bumetanide 1 mg tablet 1 mg PO BID 01/27/25 01/27/25 clonidine HCl 0.1 mg tablet 0.1 mg PO TID 01/27/25 01/27/25 hydralazine 50 mg tablet 50 mg PO BID 01/27/25 01/27/25 labetalol 200 mg tablet 200 mg PO TID 01/27/25 01/27/25 prazosin 2 mg capsule 2 mg PO BEDTIME 01/27/25 01/27/25 spironolactone 50 mg tablet 50 mg PO DAILY 01/27/25 01/27/25 Previous Rx's ?Medication ?Instructions ?Recorded amlodipine 10 mg tablet 10 mg PO DAILY #30 tabs 05/05/21 Allergies Allergy/AdvReac Type Severity Reaction Status Date / Time No Known Allergies Allergy Verified 04/19/25 11:51 [facility] Past Medical History Medical History Hyperlipidemia Hypertension Tobacco use Surgical History H/O inguinal hernia repair H/O ventral hernia repair Social History Social History Household Members: Spouse Household Members Other:: unknown if any other household members Housing: Unknown / Unable to assess Do you presently have visiting nurse or other home services: No Patient Tobacco Use Status: Current someday Tobacco user Tobacco use type: Cigarette e-Cigarette/Vaping Use: Never Used Second Hand Smoke Exposure: No Substance Use Type: Crack/Cocaine and Marijuana Advance Directives: No Advance Directives Information Provided: No service: No Sexual orientation: Straight/Heterosexual Physical Exam ED Vital Signs: BMI result Body Mass Index 35.0 Course Course Course Narrative: This is a rapid medical exam performed by Harley Cazares NP: Additional HPI, ROS, PE not included below will be deferred to primary provider. Patient is a 39-year-old male with history of HTN, HLD, TRESSA, CKD, decompensated heart failure, polysubstance use presenting with complaint of right eye swelling since Wednesday. Significant upper eyelid swelling, eye swollen shut. Complains of itching and pain, worse at night. No contact lens use. Plan: visual acuity, may need CT, will defer to primary provider Patient left the emergency department before myself or any of the other clinicians could review or explain physical exam findings, test results, need or lack there of for additional testing, treatment options, or a treatment plan. Medical Decision Making Lab Data 04/19/25 12:23 04/19/25 12:23 Labs: Lab Results 04/19/25 Range/Units 12:23 WBC 6.5 (4.8-10.8) X10*3/uL RBC 4.22 L (4.60-5.80) X10*6/uL Hgb 10.0 L (14.0-18.0) g/dl Hct 32.8 L (42.0-52.0) % MCV 77.7 L (80.0-98.0) fL MCH 23.7 L (27.0-33.0) pg MCHC 30.5 L (31.0-36.0) g/dl RDW 16.2 H (11.0-16.0) % Plt Count 149 L (160-400) X10*3/uL MPV 10.4 (9.4-12.4) fL Immature Gran % (Auto) 0.5 H (0.0-0.4) % Neut % (Auto) 78.7 H (45-73) % Lymph % (Auto) 11.6 L (20-40) % Jack % (Auto) 5.7 (2-11) % Eos % (Auto) 2.9 (0-4) % Baso % (Auto) 0.6 (0-2) % Lymph # (Auto) 0.8 L (1.2-4.9) X10*3/uL Jack # (Auto) 0.4 (0.1-1.2) X10*3/uL Eos # (Auto) 0.2 (0.0-0.4) X10*3/uL Baso # (Auto) 0.0 (0.0-0.2) X10*3/uL Abs Immat Gran (auto) 0.03 (0.00-0.03) X10*3/uL Absolute Neuts (auto) 5.1 (2.0-8.3) x10*3/uL Absolute Nucleated RBC 0.000 (0.0-0.012) X10*3/uL Nucleated RBC % (auto) 0.0 (0.0-0.2) /100WBC Sodium 143 (135-145) mmol/L Potassium 3.6 D (3.3-5.1) mmol/L Chloride 108 (96-108) mmol/L Carbon Dioxide 24 (22-29) mmol/L Anion Gap 15 (12-20) BUN 68 H (9-16) mg/dL Creatinine 5.65 H* (0.5-1.4) mg/dL Estim Creat Clear Calc 18.6 Estimated GFR 11 Random Glucose 105 (60-115) mg/dL Calcium 7.2 L (8.4-10.2) mg/dL Discharge Plan Discharge Clinical Impression: Diagnosis unknown Patient Disposition: Left W/O Completing Treatment Prescriptions: No Action amlodipine 10 mg Tablet 10 mg PO DAILY Qty: 30 0RF Protocol: Hold for SBP< HOLD for SBP < : 90 clonidine HCl 0.1 mg tablet 0.1 mg PO TID labetalol 200 mg tablet 200 mg PO TID bumetanide 1 mg tablet 1 mg PO BID hydralazine 50 mg tablet 50 mg PO BID prazosin 2 mg capsule 2 mg PO BEDTIME spironolactone 50 mg tablet 50 mg PO DAILY Discharge Date/Time: 04/19/25 17:02
[2025-04-19 11:48] VITALS: BP 189/105; PULSE 78; RESP 16; TEMP 36.4; O2SAT 95; BMI 35.0
[2025-04-19 12:35] LABS: MANUAL DIFF FLAG NO
[2025-04-19 12:36] LABS: Hematocrit 32.8 % (42.0-52.0); Hemoglobin 10.0 g/dl (14.0-18.0); Imm Gran Abs Auto 0.03 X10*3/uL (0.00-0.03); Imm Gran Pct Auto 0.5 % (0.0-0.4); Lymphocytes Absolute Auto 0.8 X10*3/uL (1.2-4.9); Mean Corpuscular HGB Conc 30.5 g/dl (31.0-36.0); Mean Corpuscular Hemoglobin 23.7 pg (27.0-33.0); Mean Corpuscular Volume 77.7 fL (80.0-98.0); NRBC Abs Auto 0.000 X10*3/uL (0.0-0.012); NRBC Pct Auto 0.0 /100WBC (0.0-0.2); Platelet Count 149 X10*3/uL (160-400); Red Blood Count 4.22 X10*6/uL (4.60-5.80); White Blood Count 6.5 X10*3/uL (4.8-10.8)
[2025-04-19 13:05] LABS: Anion Gap 15 (12-20); Blood Urea Nitrogen 68 mg/dL (9-16); Calcium 7.2 mg/dL (8.4-10.2); Carbon Dioxide 24 mmol/L (22-29); Chloride 108 mmol/L (96-108); Creatinine Clr Calc Pharmacy 18.6; Estimated Glomerular Filt Rate 11; Potassium 3.6 mmol/L (3.3-5.1); Sodium 143 mmol/L (135-145)
--- OUTSIDE RECORDS SUMMARY | 2025-04-19 17:06 | XMS_ITS | Patient Health Record ---
Author Organization [facility] Address [address] [place], [place] [id number] Care Team Providers Care Glue Clamp Operator Name Role Phone Dairiverabairon Leeroy Unavailable [phone] Reason For Referral No Information Plan Of Treatment No Information Insurance Providers Payer Name Payer Address Payer Phone Subscriber Number Group Number Insured Name Patient Relationship to Insured Coverage Start Date Coverage End Date [facility] [employer] [address] [place] [id number] Troy Beltran Self - patient is the insured
--- OUTSIDE RECORDS SUMMARY | 2025-04-19 17:06 | XMS_ITS | Clinical Summary ---
Author Organization [facility] Address [address] [place] [id number] Phone Care Team Providers Care Pool Attendant Name Role Phone Unavailable Primary Care Provider Unavailabl e Allergies No known active allergies Medications prazosin (MINIPRESS) 2 MG capsule Take 2 mg by mouth at bed time 4 Active hydrALAZINE 50 MG tablet Take 50 mg by mouth in the morning and 50 mg in the evening. 4 Active cloNIDine (CATAPRES) 0.1 MG tablet Take 0.1 mg by mouth 4 Active amLODIPine (NORVASC) 10 MG tablet Take 10 mg by mouth 1 (one) time each day Active labetalol (NORMODYNE) 300 MG tablet Take 300 mg by mouth in the morning and 300 mg in the evening. Active bumetanide (BUMEX) 1 MG tablet Take 1 mg by mouth 1 (one) time each day Active Blood Pressure Monitoring (Omron 3 Series BP Monitor) deviceIndications :Acute nontraumatic kidney injury, not otherwise specified (HCC),Chronic kidney disease, stage 4 (severe) (HCC),Hypertensio n 1 Device 1 (one) time each day 1 each 4 Active Active Problems Problem Noted Date Diagnosed Date Proteinuria, not otherwise specified 09/16/2024 Decompensated chronic heart failure 09/15/2024 Overview (10/23/2024): Acute on chronic diastolic heart failure. EF mildly reduced, 50% on 08/06 echo. Patient was instructed not to use metoprolol which he had in the past. Losartan will not be continued due to advanced renal failure. He was diuresed with IV Lasix 60 mg twice a day with significant decrease in leg swelling and resolution of dyspnea. He is at room air and denies shortness of breath with rest or with activities. He wants to go home. He will be transition back to Bumex 1 mg twice a day. Chronic kidney disease, stage 4 (severe) 024 Acute nontraumatic kidney injury, not otherwise specified 08/29/2024 Mild intermittent asthma 05/10/2024 Other specified health status 12/04/2021 Depressive disorder 12/04/2021 Body Mass Index 50.0-59.9, adult 12/04/2021 Cocaine dependence 04/18/2020 Hypertension 06/05/2019 Obstructive sleep apnea syndrome 05/06/2015 Overview (05/10/2024): [facility] Accredited by the [employer] [employer] SPLIT NIGHT STUDY Referring Provider: Chandler Cruz M.D. Date of Study: 04/17/2015 Order ID: [id number] INTRODUCTION: This 29 year-old male is undergoing PSG to evaluate observed heavy snoring and apneas. The sleep questionnaire noted depression and anxiety. Castaner sleepiness scale is 24. The height is 65 inches. The weight is 306.1 lbs. The BMI is 51.0. MASK TYPE: Small full face. MEDICATIONS: (list not available) DESCRIPTION: This overnight polysomnogram was done utilizing a 3BaysOver digital polysomnograph machine. Four channels of EEG were utilized for sleep scoring, 2 channels for electrooculograms, left and right respectively, 1 for chin EMG, 2 channels for left and right anterior tibialis EMG, respectively, 1 for EKG, 1 for combined nasal and airflow monitoring, 1 for nasal pressure transducer, 1 for intercostal EMG, 1 channel for thoracic strain gauge, 1 for abdominal strain gauge, 1 for CO2 monitoring and oximetry on the last channel to monitor arterial oxygen saturation. The low linear filter setting was 1 Hz; high linear 70 Hz for the EEG channels and appropriate bandwidths were set for the other channels. Sleep was scored by 30-second epochs according to the AASM Manual for the Scoring of Sleep and Associated Events: Rules, Terminology, and Technical Specifications, v. 2.2.0, 2015. SLEEP ARCHITECTURE: Lights were turned out at 09:42:27 PM. The total recording time of the diagnostic portion of the study was 153.9 minutes. The total sleep time was 88.0 minutes. During the diagnostic portion of the study, the patient spent 29.5% of total sleep time in Stage I, 62.5% in Stage II, 0.0% in Stage III and 8.0% in REM. Sleep latency was 37.4 minutes. REM latency was 92.0 minutes. Sleep Efficiency was 57.2%. Sleep Maintenance Efficiency was 74.6%. At 12:20:42 AM the patient was placed on CPAP treatment and was titrated at pressures ranging from 4 cm/H20 up to 14 cm/H20. The total recording time of the treatment portion of the study was 299.4 minutes. The total sleep time was 259.0 minutes. During the treatment portion of the study, the patient spent 5.0% of total sleep time in Stage I, 44.4% in Stage II, 21.0% in Stage III and 29.5% in REM. Sleep Efficiency was 86.5%. Sleep Maintenance Efficiency was 88.2%. POSITION: At baseline there was 49.0 minutes of supine sleep with 7.0 minutes of supine REM and during titrations there was 179.0 minutes of supine sleep with 48.0 minutes of supine REM. PRE-TREATMENT RESPIRATORY MEASURES: There were 109 obstructive apneas, the longest of which was 42.8 seconds, 0 mixed apneas, 0 central apneas and 50 hypopneas, the longest of which was 26.7 seconds. The apneas-hypopnea index was 108.4 per hour. The REM AHI was 111.4 per hour and the NREM AHI was 108.1 per hour. The supine AHI is 113.9 per hour. The number of arousals was 0 for an arousal index of 0.0. Snoring was heavy, then eliminated CPAP 12. At baseline there was an average oxygen saturation of 93.5% with minimum of 72.3% and during the titration, an average oxygen saturation of 96.2% with minimum of 76.0%. There was 25.9 minutes below 89% at baseline and 3.7 minutes below 89% during the titration. END-TIDAL CO2: At baseline there was an average ETCO2 of 44.6 Torr with max of 61.4 Torr. During the titration, not monitored due to technical limitations. CPAP/BiPAP SUMMARY: CPAP Level: Off, Minutes of Sleep: 88.0, AHI: 108.4, REM AHI: 111.4, Lowest O2: 72.3 CPAP Level: 4, Minutes of Sleep: 0.0, AHI: 0.0, REM AHI: , Lowest O2: - CPAP Level: 6, Minutes of Sleep: 2.0, AHI: 90.0, REM AHI: , Lowest O2: 88.6 CPAP Level: 8, Minutes of Sleep: 24.5, AHI: 66.1, REM AHI: 66.1, Lowest O2: 76.0 CPAP Level: 10, Minutes of Sleep: 55.5, AHI: 3.2, REM AHI: 7.7, Lowest O2: 90.4 CPAP Level: 12, Minutes of Sleep: 56.0, AHI: 2.1, REM AHI: , Lowest O2: 89.1 CPAP Level: 13, Minutes of Sleep: 41.5, AHI: 2.9, REM AHI: 0.0, Lowest O2: 92.8 CPAP Level: 14, Minutes of Sleep: 79.5, AHI: 3.8, REM AHI: 11.2, Lowest O2: 85.9 EKG: Sinus rhythm with an average heart rate of 59.9, range 37.9-100.2 bpm. Arrhythmia: None noted. EEG: The waking background was 13 Hz. Bruxism: None. LIMB MOVEMENTS: There were 260 periodic limb movements with 1 PLMs associated with arousals for a PLM arousal index of 0.2 per hour. PATIENT?S ASSESSMENT OF NIGHT: The patient slept same as at home. INTERPRETATION: During the diagnostic portion of the study, sleep architecture and staging was remarkable for reduced sleep efficiency, as a consequence of a prolonged sleep latency and periods of wakefulness. Also, no stage 3 sleep and a reduced amount of REM sleep occurred. The baseline oxygen saturation was around 93.5%. In response to frequent respiratory events, prolonged and recurrent desaturations as low as 72%% occurred. Based upon CO2 criteria, hypoventilation with sleep and obesity hypoventilation were present. CPAP was titrated from 4 to 14 cm H2O. Although a trend towards stabilization of sleep disordered breathing occurred, time limitation precluded full titration. Moreover, given the hypoventilation evident during the diagnostic portion of the study, CO2 monitoring leading to possible BiPAP therapy would be optimal. DIAGNOSTIC CLASSIFICATION: AXIS A: 1. Obstructive sleep apnea, severe (327.23). 2. Hypoventilation with sleep (327.20) AXIS B: 1. Split night. AXIS C: 1. Obesity, high blood pressure, asthma, high cholesterol. RECOMMENDATIONS: 1. Patient should be scheduled for a full night titration study with monitoring of TCCO2. BiPAP therapy may be required. 2. Patient should sleep in nonsupine position. A device such as Zzoma or Rematee could be considered. 3. Patient should avoid alcohol and sedative containing medications which may worsen sleep apnea. 4. Weight loss is recommended, as losing over 10% of weight can lead to significant improvement in the degree of sleep apnea. 5. If the patient has symptoms of restless legs as suggested by the sleep questionnaire, a ferritin level should be checked to ensure that it is above 50. 6. The patient should be emphatically counseled not to drive if feeling drowsy. If needed, consultation with [facility] could be considered. It is greatly appreciated that your patient underwent sleep testing here with [facility]. Dictated by: Johnson Sanford M.D. Signing Clinician: Johnson Snaford M.D. Dictated: 04/19/2015 18:27:35 Transcribed: 04/19/2015 19:39:14 Transcribed by: JEFF DocID: [id number] PRELIMINARY REPORT UNLESS MANUALLY/ELECTRONICALLY SIGNED CC:Chandler Cruz M.D. [facility] [address] [place] [address], [id number] Left ventricular hypertrophy 02/25/2015 Overview (05/10/2024): Result type: Discharge/Transfer Note Hospital Result date: 20 February 2015 16:58 Result status: Modified Result title: Hospitalist Discharge Summary Performed by: Desiree Schaffer MD on 20 February 2015 16:58 Verified by: Desiree Schaffer MD on 20 February 2015 17:44 Encounter info: [id number], [facility], Disch Obv, 02/18/2015 - 02/20/2015 Document Has Been Updated Hospitalist Discharge Summary Patient: TROY BELTRAN Age: 29 years Sex: Male : 1985 Associated Diagnoses: None Author: Desiree Schaffer MD Discharge Information Admission Date: 02/18/2015 Discharge Date 02/20/2015 Primary Care Provider Lesa Fuller Principal Discharge Diagnosis Chest pain. Secondary Discharge Diagnoses Borderline diabetes. HTN (hypertension). Dyslipidemia. Medications (Selected) Documented Medications Documented Aspirin Tablet: 81 mg, By Mouth, Daily, Maintenance, 02/20/15 17:44:47 amlodipine 10 mg oral tablet: = 10 mg, By Mouth, Daily, 0 Refills, Maintenance, 02/20/15 17:25:45, Tablet hydrochlorothiazide 25 mg oral tablet: = 25 mg, By Mouth, Daily, 0 Refills, Maintenance, 02/20/15 17:25:40, Tablet lisinopril 20 mg oral tablet: 1 tablet = 20 mg, By Mouth, Daily, # 90 tablet, 0 Refills, Maintenance, 02/19/15 13:05:59, Tablet. Medications Started Amlodipine 10 mg by mouth once daily Aspirin 81 mg po od Medications Discontinued nil Doses Changed Hydrochlorothiazide dose increased to 25 mg by mouth once daily PCP Follow-up/[facility] Outpatient stress test in 1 week Please follow hypertension and borderline diabetes management Please get Lipid Panel as Out pt Hospital Course HPI As per H & P A 29 yo male with h/o of obesity, borderline DM, ex-cocaine use - quit 1 mo ago, HTN who was admitted on 02/18/15 with atypical chest pains. In the emergency room, apparently he had an EKG that showed some changes that look like LVH with strain pattern. He denied sob, palpitations, dizziness, presyncope, PND, orthopnea or edema. Hospital Course A 29 y/o Male with h/o hypertension, hyperlipidemia, morbid opacity, depression presented with complaints of chest pain. Patient is admitted for further management and evaluation. Atypical Chest pain-ruled out ACS followup 2 more sets cardiac enzymes - ve - Echocardiogram showed LVH, with mild decrease in EF 0f 40- 45 % - CTA chest ruled out PE. Added ASA 81 mg po od Microcytic anemia- No Clinical evidence of bleeding Will monitor H/O Drug Abuse- - Social work consult Counseled about the dangers of Coccaine / MArujana Borderline DM- HbA1c 5.7 Adviced Weight loss Took the help of Wood Carving Machine Operator in evaluating the Pt Pt is seen & examined today. He is alert , oriented Denies chest pain/sob/cough/palpitations/headache,fever.nausea, vomiting,blood in Ur-Stool Vital signs are reviewed BP improved with increasing the doses Added Amlodipine, Increased the dose of HCTZ Pt stated he wants to go Home. Doesnot want to stay for Furthur testing Adviced him to follow with Catdiology & PCP in 1 week Results Echo Complete This document has an image Echo Complete-Doppler, Colorflow, M-Mode Transthoracic Echocardiography Report (TTE) Patient Demographics Patient Name TROY BELTRAN Date of Study 02/20/2015 Corporate Gender Male Facility Race Ethnicity or Date of 1985 Height: 64.57 inches Age 29 year(s) Weight: 310.85 pounds Accession Number [id number] BSA: 2.37 m2 Room Number [id number] BMI: 52.42 kg/m2 Referring Physician Philip TSE Interpreting Andre Urbina Physician Print Traffic Manager Licha Driver RCS Indications Chest pain. Clinical History No cardiac risk factors. Study Data Type of Study TTE procedure:Echo Complete-(Doppler, Colorflow) with Contrast. Procedure Information:Definity was administered by RN . Study Date02/20/2015 Start Time: 10:05 AM Study Location: [facility] [place] Adult Echo Study Status: Echo lab Patient Status: Routine Technical Quality: Technically difficult due to poor acoustical window. Blood Pressure:122/88 mmHg EKG: Normal sinus rhythm Contrast Medium: Definity for LV opacification. Amount - 2 ml 2D Measurements LV Diastolic Dimension: 5.18 cm LV Systolic Dimension: 4.22 cm LV Septum Diastolic: 1.78 cm LV PW Diastolic: 1.8 cm AO Root Dimension: 2.8 cm LA Dimension: 4.3 cm LVOT Stroke Volume: 40 ml LVOT: 2 cm Doppler Measurements AV Peak Velocity: 94.7 cm/s MV Peak E-Wave: 61.3 cm/s AV Peak Gradient: 3.59 mmHg MV Peak A-Wave: 55.1 cm/s MV E/A Ratio: 1.11 LVOT Peak Velocity: 71.7 cm/s LVOT VTI12.6 ml MV Deceleration Time: 173 msec PV Peak Velocity: 107 cm/s PV Peak Gradient: 4.58 mmHg Cardiac Anatomy Left Ventricle/Interventricular Septum The left ventricular size is normal. There is severe concentric left ventricular hypertrophy. The LV systolic function is mildly reduced . The left ventricular ejection fraction is 40-45 %. There is mild global hypokinesis of the left ventricle. Unable to assess diastolic function . Left Atrium/Interatrial Septum The left atrium is poorly visualized. The left atrium is dilated. Aortic Valve The aortic valve is trileaflet . There is no significant aortic regurgitation. There is no significant aortic stenosis. Mitral Valve Mitral leaflet excursion is normal . There is no significant mitral regurgitation. Aorta The aortic root is normal in size. Right Ventricle The right ventricle is poorly visualized. Right Atrium The right atrium is poorly visualized. Pulmonic Valve The pulmonic valve velocity is normal. Tricuspid Valve The tricuspid valve is grossly normal. There is no significant tricuspid valve regurgitation. Pumonary Artery An accurate pulmonary artery pressure could not be obtained. Venous Structures The inferior vena cava is poorly visualized. Pericardium/Extracardiac There is no significant pericardial effusion. Summary The left ventricular size is normal. There is severe concentric left ventricular hypertrophy. The LV systolic function is mildly reduced . The left ventricular ejection fraction is 40-45 %. There is mild global hypokinesis of the left ventricle. Unable to assess diastolic function . The left atrium is poorly visualized. The left atrium is dilated. The right ventricle is poorly visualized. Impressions Severely hypertrophic left ventricle with mildly reduced systolic function . Discharge Plan Diet/Activity/Patient Education/Follow Up Patient was given the following educational materials: Amlodipine, DIURETIC, General, Diabetes: Meal Planning, Diabetes: Shopping for and Preparing Meals, Diabetes: Understanding Carbohydrates, Diet-Cardiac (Custom), Activity-Increase as Tolerated (Custom), Getting Support for Quitting Smoking, Health Effects of Smoking, How Smoking Affects , MARIJUANA ABUSE, COCAINE ABUSE, Cocaine: Getting Help, Cocaine: Myths and Facts, Cocaine: Understanding Its Effects, ASPIRIN, Amlodipine, DIURETIC, General, Diabetes: Meal Planning, Diabetes: Shopping for and Preparing Meals, Diabetes: Understanding Carbohydrates, Diet-Cardiac (Custom), Activity-Increase as Tolerated (Custom), Getting Support for Quitting Smoking, Health Effects of Smoking, How Smoking Affects , MARIJUANA ABUSE, COCAINE ABUSE, Cocaine: Getting Help, Cocaine: Myths and Facts, Cocaine: Understanding Its Effects, ASPIRIN. Follow Up with: [facility] [place] 02/27/2015 1:00 PM Patient appointment for an Echocardiogram for recent dx of Chest pain and HTN. The office will call the patient to make an appointment for a Stress Echocardiogram.; [facility] 03/21/2015 8:00 AM Patient appointment with Dr. Cruz at 8AM to discuss results of ECHO and stress ECHO.; Lesa MCMANUS, [facility] [place] 02/27/2015 1:00 PM Patient appointment for an Echocardiogram for recent dx of Chest pain and HTN. The office will call the patient to make an appointment for a Stress Echocardiogram.; [facility] 03/21/2015 8:00 AM Patient appointment with Dr. Cruz at 8AM to discuss results of ECHO and stress ECHO.; Lesa MCMANUS Within 1 week. Discharge Disposition Discharge: home. Discharge Condition: good, compared to admission improved. 35 minutes spent on discharge Impaired glucose tolerance 09/01/2013 Immunizations Immunization Administration Dates Next Due Pneumococcal Polysaccharide 04/30/2017 Tdap 05/05/2023 Family History Medical History Relation Comments Heart disease Father Diabetes Mother Hypertension Mother Relation Status Comments Father Mother Social History Tobacco Use Types Packs/Day Years Used Date Smoking Tobacco: Former Cigarettes Smokeless Tobacco: Never Tobacco Cessation:Counseling Given: Not Answered Alcohol Use Standard Drinks/Week Comments Not Currently 0 (1 standard drink = 0.6 oz pur e alcohol) Sex and Gender Information Value Date Recorded Sex Assigned at Not on file Legal Sex Male 10:42 AM EDT Gender Identity Not on file Sexual Orientation Not on file Last Filed Vital Signs Vital Sign Reading Time Taken Comments Blood Pressure 118/70 08/29/2024 4:13 PM EST Pulse 70 08/29/2024 4:13 PM EST Temperature - - Respiratory Rate - - Oxygen Saturation - - Inhaled Oxygen Concentration - - Weight 112 kg (248 lb) 08/29/2024 4:13 PM EST Height 165.1 cm (5' 5 ) 08/29/2024 4:13 PM EST Body Mass Index 41.27 08/29/2024 4:13 PM EST Plan of Treatment Health Maintenance Due Date Last Done Comments Hepatitis B Vaccine (1 of 3 - 19+ 3-dose series) 08/30 Pneumococcal Vaccine: Peds ( 0 to 5 Years) and At-Risk Patients (6 to 49 Years) (2 of 2 - PCV) 04/30/2018 04/30/2017 Influenza Vaccine (#1) 2025 Insurance Medicaid [place]
== END 2025-04-19 17:02 | disposition left against medical advice (07) ==
PROVIDERS: Registered Nurse Emergency; Emergency Provider Emergency Medicine; PCP Physician Assistant
DX: H57.11 Ocular pain, right eye (principal); I10 Essential (primary) hypertension; I13.0 Hypertensive heart and chronic kidney disease with heart failure and stage 1 through stage 4 chronic kidney disease, or unspecified chronic kidney disease; I50.32 Chronic diastolic (congestive) heart failure; N18.9 Chronic kidney disease, unspecified; Z53.21 Procedure and treatment not carried out due to patient leaving prior to being seen by health care provider
CPT/HCPCS: 36415; 80048; 85025; 99281

== ENCOUNTER 2025-05-23 04:59 | Inpatient (IN) | payer MEDICAID, SELFPAY ==
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
[2025-05-23] VITALS (54 sets, daily range): BP systolic 115–236; BP diastolic 66–180; PULSE 70–113; RESP 16–33; TEMP 34.9–37.7; O2SAT 89–100; BMI 36.6; BMI 35.4; BMI 36.3
--- NOTE | 2025-05-23 | ECG_ITS ---
Test Reason : SOB Blood Pressure : */* mmHG Vent. Rate : 97 BPM Atrial Rate : 97 BPM P-R Int : 180 ms QRS Dur : 106 ms QT Int : 424 ms P-R-T Axes : 75 5 172 degrees QTcB Int : 538 ms Poor data quality with Baseline wander Normal sinus rhythm Possible Left atrial enlargement ST & T wave changes cannot be comented upon Abnormal ECG When compared with ECG of 26-Jan-2025 23:12, Non-specific change in ST segment in Lateral leads T wave inversion now evident in Inferior leads T wave inversion less evident in Lateral leads Referred By: Uma Sethi Electronically Signed By: ALANIS WESLEY MD
--- NOTE | ~2025-05-23 | MR_ITS ---
EXAMINATION: MR BRAIN WITHOUT CONTRAST CLINICAL INFORMATION: Involuntary movements. Concerning stroke. COMPARISON: None available. TECHNIQUE: MRI of the brain was obtained using routine sequences without contrast. FINDINGS: Patient's motion artifact. No restricted diffusion. No acute intracranial hemorrhage, mass effect, midline shift, hydrocephalus or herniation. Susceptibility signal, right thalamus. Polanco-white matter differentiation is normal. Old lacunar infarct, left basal ganglia left vyas radiata. Flow-void signal within the main cerebral vessels is normal. Prominence of the extra-axial CSF spaces cerebral sulci. Sellar/suprasellar region demonstrated no gross signal abnormality or masses. Craniocervical junction demonstrates normal position of the cerebellar tonsils. Mucosal thickening and secretions with the likely restricted diffusion, left maxillary sinus. Mucosal thickening and secretions in the left paranasal sinuses. MR/MR head/brain wo con IMPRESSION: No acute stroke/nonhemorrhagic ischemia. Old lacunar infarcts, left basal ganglia/left vyas radiata. Probable cavernoma versus old microhemorrhage, right thalamus.. Acute on chronic left maxillary sinus disease. Superimposed fungal infection cannot be excluded. Cerebral atrophy. Electronically signed by: Papito Olsen MD 05/28/2025 01:24 PM EDT
--- NOTE | ~2025-05-23 | XR_ITS ---
CLINICAL HISTORY: dyspnea 1 view chest x-ray Comparison: None provided Findings: There is stable cardiomegaly with pulmonary vascular congestion with likely interstitial and developing alveolar edema. Heart size is normal. No acute fracture. IMPRESSION: There is stable cardiomegaly with pulmonary vascular congestion with likely interstitial and developing alveolar edema. This document has been electronically signed by: Lucas Gu MD on 05/23/2025 07:07:13
--- NOTE | ~2025-05-23 | XR_ITS ---
CLINICAL HISTORY: new fever ? aspiration Exam: AP portable chest x-ray. Comparison: May 23, 2025. Findings: Endotracheal tube and enteric sump tube has been removed. Lungs are well inflated. Cardiac silhouette is moderately enlarged with left ventricular prominence. Continued increased density of the left mid lung and left lung base with hazy bilateral perihilar densities. Likely small bilateral pleural effusions. Impression: Support apparatus removal as discussed above. Otherwise, unchanged chest x-ray. This document has been electronically signed by: Harman Woods MD on 05/27/2025 21:54:23
--- NOTE | ~2025-05-23 | XR_ITS ---
EXAMINATION: XR CHEST 1 VIEW HISTORY: ET tube and OG tube placement COMPARISON: Comparison is made with the prior examination dated 05/23/2025 at 6:22 AM. FINDINGS: A single AP portable view of the chest performed at 1:10 PM is submitted. There has been interval placement of an endotracheal tube with its tip approximately 4 cm above the mario. An orogastric tube terminates below the diaphragm. There is partial opacification of the left lung base which may represent atelectasis, pneumonia, or pleural fluid. There is probable pulmonary vascular congestion. There is no pneumothorax. The heart is enlarged. There is degenerative disc disease of the spine. XR/XR chest 1V IMPRESSION: 1. Lines and tubes in place as described. 2. Cardiomegaly and pulmonary vascular congestion. Left lower lobe atelectasis versus pneumonia versus pleural fluid. Electronically signed by: Hugo Fontenot MD 05/23/2025 01:30 PM EDT
--- NOTE | ~2025-05-23 | CT_ITS ---
CLINICAL HISTORY: altered mental status CT head without contrast Comparison: None provided Findings: No intra-axial mass, midline shift, hydrocephalus, or acute hemorrhage. Mild heterogeneous low attenuation in the periventricular white matter. Air-fluid level in the left maxillary sinus. The orbits are unremarkable. No skull fracture. IMPRESSION: 1. No acute intracranial findings. 2. Mild chronic periventricular microvascular ischemic disease. 3. Left maxillary sinus air-fluid level; left maxillary sinus disease. This document has been electronically signed by: Jake Pierre MD on 05/26/2025 13:32:22
[2025-05-23] MEDS: Nitroglycerin 2 % Oint 1 GM Packet 1 INCH TRANSDERMA (05:24)
[2025-05-23 05:25] LABS: Venous Blood Gas Refer to POC result
[2025-05-23 05:27] LABS: MANUAL DIFF FLAG NO
[2025-05-23 05:29] LABS: VBG HCO3 20 mmol/L (22-26); VBG O2 % Saturation 100.0 %
[2025-05-23 05:32] LABS: Hematocrit 35.0 % (42.0-52.0); Hemoglobin 11.1 g/dl (14.0-18.0); Imm Gran Abs Auto 0.06 X10*3/uL (0.00-0.03); Imm Gran Pct Auto 0.7 % (0.0-0.4); Lymphocytes Absolute Auto 0.7 X10*3/uL (1.2-4.9); Mean Corpuscular HGB Conc 31.7 g/dl (31.0-36.0); Mean Corpuscular Hemoglobin 23.8 pg (27.0-33.0); Mean Corpuscular Volume 74.9 fL (80.0-98.0); NRBC Abs Auto 0.000 X10*3/uL (0.0-0.012); NRBC Pct Auto 0.0 /100WBC (0.0-0.2); Platelet Count 157 X10*3/uL (160-400); Red Blood Count 4.67 X10*6/uL (4.60-5.80); White Blood Count 8.0 X10*3/uL (4.8-10.8)
[2025-05-23 05:41] LABS: COVID-19 Test Negative (Negative); IDNOW Serial# 55D5AD1C; IDNOW Serial# 58CA691E; Influenza B2 Negative (Negative)
[2025-05-23] MEDS: Albuterol Sulfate 5 MG, Albuterol/Iprat 2.5/0.5MG 3 ML 3 ML INHALE (05:41)
[2025-05-23 05:48] LABS: Troponin-I High Sensitivity 61.8 ng/L (<3.5-35.0)
[2025-05-23] MEDS: diazePAM 10 MG/2 ML CARTRIDGE 5 MG IVPUSH ×2 (05:49→06:35)
[2025-05-23] MEDS: Nitroglycerin/D5W 100 MG/250 ML INFUS..BTL IVCONT (05:55)
[2025-05-23 05:56] LABS: Alanine Aminotransferase 78 U/L (0-40); Albumin Level 4.3 g/dL (3.5-5.0); Alkaline Phosphatase 68 U/L (39-117); Anion Gap 21 (12-20); Aspartate Amino Transferase 45 U/L (5-37); Blood Urea Nitrogen 92 mg/dL (9-16); Calcium 7.8 mg/dL (8.4-10.2); Carbon Dioxide 21 mmol/L (22-29); Chloride 104 mmol/L (96-108); Creatinine Clr Calc Pharmacy 16.5; Estimated Glomerular Filt Rate 10; Magnesium 2.1 mg/dL (1.6-2.6); Potassium 3.5 mmol/L (3.3-5.1); Sodium 142 mmol/L (135-145); Total Protein 7.1 g/dL (6.5-8.0)
--- NOTE | 2025-05-23 06:05 | PC.NURSE ---
Addendum entered by Letitia Burkett RN 05/23/25 06:14: Per MD Sethi, continue to reassess every 5 min until pts diastolic pressure is <90 and begin to titrate nitro drip down. Original Note: Per MD Sethi given pts bp titrate nitro drip up to 200mcg/min and recheck bp and titrate in 5 min
--- OUTSIDE RECORDS SUMMARY | 2025-05-23 06:06 | XMS_ITS | Patient Health Record ---
Author Organization [facility] Address [address] [place] [address] Care Team Providers Care Hatch Boss Name Role Phone DavidDavidBoilvar Leeroy Unavailable [phone] Reason For Referral No Information Plan Of Treatment No Information Insurance Providers Payer Name Payer Address Payer Phone Subscriber Number Group Number Insured Name Patient Relationship to Insured Coverage Start Date Coverage End Date [facility] [employer] [address] [place] [address] [phone] Troy Beltran Self - patient is the insured
--- OUTSIDE RECORDS SUMMARY | 2025-05-23 06:08 | XMS_ITS | Clinical Summary ---
Author Organization [facility] Address [address] [place] [phone] Phone Care Team Providers Care Regulatory Attorney Name Role Phone Unavailable Primary Care Provider [...] Obstructive sleep apnea syndrome 05/06/2015 Overview (05/10/2024): [facility] SLEEP PROGRAM [facility] Accredited by the [place] [employer] SPLIT NIGHT STUDY Referring Provider: Chandler Cruz M.D. Date of Study: 04/17/2015 Order ID: [id number] INTRODUCTION: This 29 year-old male is undergoing PSG to evaluate observed heavy snoring and apneas. The sleep questionnaire noted depression and anxiety. [place] sleepiness scale is 24. The height is 65 inches. The weight is 306.1 lbs. The BMI is 51.0. MASK TYPE: Small full face. MEDICATIONS: (list not available) DESCRIPTION: This overnight polysomnogram was done utilizing a [employer] digital polysomnograph machine. Four channels of EEG [...] if feeling drowsy. If needed, consultation with [facility] could be considered. It is greatly appreciated that your patient underwent sleep testing here with [facility]. Dictated by: Johnson Sanford M.D. Signing Clinician: Johnson Sanford M.D. Dictated: 04/19/2015 18:27:35 Transcribed: 04/19/2015 19:39:14 Transcribed by: JEFF DocID: [id number] PRELIMINARY REPORT UNLESS MANUALLY/ELECTRONICALLY SIGNED CC:Chandler Cruz M.D. [facility] [address] [place] [address], [id number] Left ventricular hypertrophy 02/25/2015 Overview (05/10/2024): Result type: Discharge/Transfer Note Hospital Result date: 20 February 2015 16:58 Result status: Modified Result title: Hospitalist Discharge Summary Performed by: Desiree Schaffer MD on 20 February 2015 16:58 Verified by: Desiree Schaffer MD on 20 February 2015 17:44 Encounter info: [id number], [facility], Disch Obv, 02/18/2015 - 02/20/2015 Document [...] Adviced Weight loss Took the help of Medical Biller/Coder in evaluating the Pt Pt is seen [...] 29 year(s) Weight: 310.85 pounds Accession Number [id number] BSA: 2.37 m2 Room Number [id number] BMI: 52.42 kg/m2 Referring Physician Philip TSE Interpreting Andre Urbina Physician Visual Artist Licha Driver RCS Indications Chest pain. Clinical History No cardiac risk factors. Study Data Type of Study TTE procedure:Echo Complete-(Doppler, Colorflow) with Contrast. Procedure Information:Definity was administered by RN . Study Date02/20/2015 Start Time: 10:05 AM Study [place] [facility] [place] Study Status: [...] Understanding Its Effects, ASPIRIN. Follow Up with: [facility] [place] 02/27/2015 1:00 PM Patient appointment for an Echocardiogram for recent dx of Chest pain and HTN. The office will call the patient to make an appointment for a Stress Echocardiogram.; [facility] 03/21/2015 8:00 AM Patient appointment with Dr. Cruz at 8AM to discuss results of ECHO and stress ECHO.; Lesa MCMANUS, [facility] [place] 02/27/2015 1:00 PM Patient appointment for an Echocardiogram for recent dx of Chest pain and HTN. The office will call the patient to make an appointment for a Stress Echocardiogram.; [facility] 03/21/2015 8:00 AM Patient appointment with Dr. [...] 04/30/2017 Influenza Vaccine (#1) 2025 Insurance [place]
[2025-05-23 06:09] LABS: B Type Natriuretic Peptide 8190 pg/mL (<100)
[2025-05-23] MEDS: Furosemide 100 MG/10 ML VIAL 80 MG IVPUSH (06:35)
--- NOTE | 2025-05-23 06:48 | ED.SOB ---
HPI - SOB/Dyspnea General Chief Complaint: Dyspnea Stated Complaint: SOB Time Seen by Provider: 05/23/25 05:14 Source: patient and EMS Mode of arrival: EMS Limitations: language barrier and altered mental status History of Present Illness ED Provider: Dr. Uma Sethi HPI Narrative: 39-year-old male with extensive past medical history including cocaine abuse, CKD, TRESSA on CPAP, CHF, hypertension presenting with shortness of breath that is been ongoing for about a week now. Patient reports last use of cocaine was 3 days ago. Admits that he was unable to sleep tonight and feels that he can not catch his breath. No reported fever. Cough is a dry cough. History is limited secondary to patient's clinical condition and language barrier. Related Data Home Medications ?Medication ?Instructions ?Recorded ?Confirmed bumetanide 1 mg tablet 1 mg PO BID 01/27/25 01/27/25 clonidine HCl 0.1 mg tablet 0.1 mg PO TID 01/27/25 01/27/25 hydralazine 50 mg tablet 50 mg PO BID 01/27/25 01/27/25 labetalol 200 mg tablet 200 mg PO TID 01/27/25 01/27/25 prazosin 2 mg capsule 2 mg PO BEDTIME 01/27/25 01/27/25 spironolactone 50 mg tablet 50 mg PO DAILY 01/27/25 01/27/25 Previous Rx's ?Medication ?Instructions ?Recorded amlodipine 10 mg tablet 10 mg PO DAILY #30 tabs 05/05/21 Allergies Allergy/AdvReac Type Severity Reaction Status Date / Time No Known Allergies Allergy Verified 05/23/25 05:08 Review of Systems Review of Systems: Yes Unobtainable due to mental condition PMFSH Past Medical History Medical History Hyperlipidemia Hypertension Tobacco use Surgical History H/O inguinal hernia repair H/O ventral hernia repair Social History Social History Household Members: Spouse Household Members Other:: unknown if any other household members Housing: Unknown / Unable to assess Do you presently have visiting nurse or other home services: No Patient Tobacco Use Status: Current someday Tobacco user Tobacco use type: Cigarette Smoked in Last 30 Days: Yes e-Cigarette/Vaping Use: Never Used Second Hand Smoke Exposure: No Use of substances other than those prescribed or required for medical reasons: Yes Substance Use Type: Crack/Cocaine Substance Use Frequency: Weekly Advance Directives: No service: No Sexual orientation: Straight/Heterosexual Physical Exam Exam: Exam: GENERAL: Chronically ill-appearing, moderate respiratory distress. SKIN: Normal skin color for ethnicity, warm, dry, no rashes noted. HEENT: Normocephalic, atraumatic, no stridor, EOMI. NECK: Soft, supple, full ROM, midline structures nontender, no step-offs, no deformities, no lymphadenopathy. CHEST: Heart regular tachycardia, symmetric chest rise and fall. PULMONARY: Coarse lung sounds bilaterally, diminished at the bases, moderate respiratory distress with poor air movement, no wheezes. ABDOMINAL: Soft, protuberant, reducible midline ventral wall hernia, nontender, quiet bowel sounds in all quadrants. : Deferred. MUSCULOSKELETAL: Normal tone, full range of motion, no deformities, 2+ peripheral edemabilaterally. NEURO: Alert and oriented to person, CN II through XII intact, no focal neurologic deficits. PSYCHIATRIC: Anxious affect, appropriate demeanor. Vital Signs: Vital Signs: Last Vital Signs Temp 97.7 F 05/23/25 05:20 Pulse 94 05/23/25 06:43 Resp 31 H 05/23/25 05:43 BP 193/126 H 05/23/25 06:43 Pulse Ox 90 L 05/23/25 05:20 O2 Del Method Nasal Cannula 05/23/25 05:20 O2 Flow Rate 5 05/23/25 05:20 Oxygen Flow Rate 8 05/23/25 05:05 BMI result Body Mass Index 35.4 Medications Administered Generic Name Dose Route Start Last Admin Trade Name Freq PRN Reason Stop Dose Admin Nitroglycerin 100 mg in 250 mls @ 0 mls/hr 05/23/25 05:30 05/23/25 06:43 Nitroglycerin/D5w IVCONT 400 mcg/min .Q0M DANIEL 60 mls/hr Protocol Titration Per Protocol Discontinued Medications Generic Name Dose Route Start Last Admin Trade Name Freq PRN Reason Stop Dose Admin Albuterol Sulfate 5 mg/ 0 mg 05/23/25 05:34 05/23/25 05:41 Albuterol/Ipratropium 3 ml INHALE 05/23/25 05:35 3 each ONCE ONE Administration Diazepam 5 mg 05/23/25 05:45 05/23/25 05:49 Diazepam 10 Mg/2 Ml Cartridge IVPUSH 05/23/25 05:46 5 mg STAT STA Administration Diazepam 5 mg 05/23/25 06:29 05/23/25 06:35 Diazepam 10 Mg/2 Ml Cartridge IVPUSH 05/23/25 06:30 5 mg STAT STA Administration Furosemide 80 mg 05/23/25 06:29 05/23/25 06:35 Furosemide 100 Mg/10 Ml Vial IVPUSH 05/23/25 06:30 80 mg ONCE ONE Administration Protocol Nitroglycerin 1 inch 05/23/25 05:23 05/23/25 05:24 Nitroglycerin 2 % Oint 1 Gm Packet TRANSDERMA 05/23/25 05:24 1 inch ONCE ONE Administration Medical Decision Making Medical Decision Making MDM Narrative: Patient presents in respiratory distress. Differential diagnosis includes flash pulmonary edema, COPD exacerbation, pneumothorax, pneumonia, ACS, pulmonary embolism, metabolic acidosis, among many others. The serious nature of the patient's symptoms makes this presentation complex, with potential for significant, worsening morbidity and mortality without immediate treatment/intervention. Patient arrives in respiratory distress, immediately placed on BiPAP. He received a breathing treatment in route which really did not help his work of breathing much. I feel this is more of a cardiac wheeze rather than a respiratory distress wheeze however, patient does have a history of asthma. He is afebrile with reportedly nonproductive cough. Initiated nitroglycerin drip. Patient reports use of cocaine in the last 3 days though I suspect it may have been a lot sooner. His initial cardiac enzyme is 61.8, BNP is over 8100. He is continuing to have increased work of breathing. Will medicate with benzodiazepines and increase his nitroglycerin drip. His blood pressures remain significantly elevated. Patient is now at max dose of the nitroglycerin drip. His blood pressure remains elevated at 180/110. Given a dose of hydralazine and IV Lasix. Case discussed with ICU. He will be admitted for further care and evaluation of sympathetic crashing acute pulmonary edema in the setting of cocaine use and acute on chronic renal failure. Patient remains in critical condition. Differential Diagnosis Differential Diagnoses: The differential diagnosis associated with the presentation includes (As above) Admission/Observation Consideration of admission/observation: Escalation of care including admission/observation considered Consult Healthcare Provider Management of the patient was discussed with: Folder Machine Adjuster (Pocket Stitcher) Lab Data MDM Lab Attestation statement: I reviewed the patient's lab results. 05/23/25 05:18 05/23/25 05:18 Labs: Lab Results 05/23/25 05/23/25 Range/Units 05:18 05:25 WBC 8.0 (4.8-10.8) X10*3/uL RBC 4.67 (4.60-5.80) X10*6/uL Hgb 11.1 L (14.0-18.0) g/dl Hct 35.0 L (42.0-52.0) % MCV 74.9 L (80.0-98.0) fL MCH 23.8 L (27.0-33.0) pg MCHC 31.7 (31.0-36.0) g/dl RDW 18.7 H (11.0-16.0) % Plt Count 157 L (160-400) X10*3/uL MPV 9.8 (9.4-12.4) fL Immature Gran % (Auto) 0.7 H (0.0-0.4) % Neut % (Auto) 82.0 H (45-73) % Lymph % (Auto) 9.1 L (20-40) % [place] % (Auto) 5.2 (2-11) % Eos % (Auto) 2.5 (0-4) % Baso % (Auto) 0.5 (0-2) % Lymph # (Auto) 0.7 L (1.2-4.9) X10*3/uL [place] # (Auto) 0.4 (0.1-1.2) X10*3/uL Eos # (Auto) 0.2 (0.0-0.4) X10*3/uL Baso # (Auto) 0.0 (0.0-0.2) X10*3/uL Abs Immat Gran (auto) 0.06 H (0.00-0.03) X10*3/uL Absolute Neuts (auto) 6.6 (2.0-8.3) x10*3/uL Absolute Nucleated RBC 0.000 (0.0-0.012) X10*3/uL Nucleated RBC % (auto) 0.0 (0.0-0.2) /100WBC Hold Blue Top SEE NOTE VBG pH 7.34 (7.32-7.43) VBG pCO2 37 mmHg VBG pO2 116 mmHg VBG HCO3 20 L (22-26) mmol/L VBG O2 Saturation 100.0 % VBG Base Excess -4.4 mmol/L Sodium 142 (135-145) mmol/L Potassium 3.5 (3.3-5.1) mmol/L Chloride 104 (96-108) mmol/L Carbon Dioxide 21 L (22-29) mmol/L Anion Gap 21 H (12-20) BUN 92 H (9-16) mg/dL Creatinine 6.50 H* (0.5-1.4) mg/dL Estim Creat Clear Calc 16.5 Estimated GFR 10 Random Glucose 95 (60-115) mg/dL Calcium 7.8 L D (8.4-10.2) mg/dL Magnesium 2.1 (1.6-2.6) mg/dL Total Bilirubin 0.9 (0.0-1.0) mg/dL AST 45 H (5-37) U/L ALT 78 H (0-40) U/L Alkaline Phosphatase 68 (39-117) U/L Troponin I High Sens 61.8 H (<3.5-35.0) ng/L B-Natriuretic Peptide 8190 H (<100) pg/mL Total Protein 7.1 (6.5-8.0) g/dL Albumin 4.3 (3.5-5.0) g/dL COVID-19 (GUSTAVO) Negative (Negative) COVID-19 Clin Com See Note Influenza Type A (CHARLES) Negative (Negative) Influenza Type B (CHARLES) Negative (Negative) Influenza A & B Note See Note ABG Data Attestation ABG: I personally reviewed and interpreted this ABG as follows: Interpretation: Normal pH, bicarb slightly low, likely chronic metabolic acidosis with compensation Independent Interpretation I performed an independent interpretation of an: EKG and Plain X-Ray Interpretation: My independent interpretation of the chest x-ray reveals evidence of cardiomegaly with pulmonary edema My independent interpretation of the ECG reveals baseline wandering, sinus rhythm with rate of 97, leftward axis, difficult to diagnose any significant ST-T changes due to wandering baseline and artifact, QRS 106, QTC 538 Radiology Impression Discussion of test interpretation with radiology: I have reviewed the radiologist's reading. Independent Historian Clinical information obtained from an independent historian. History obtained from or confirmed by: EMS External Record Review External record reviewed: Inpatient record Chronic Conditions Patient?s care impacted by: Hypertension and Other (CKD, CHF, cocaine use) Social Determinants Patient?s care significantly limited by Social Determinants of Health including: Problems related to primary support group and Other Social Determinant of Health Critical Care Time Critical Care Time Total Critical Care Time: 60 Attestation: CRITICAL CARE TIME: 60 minutes of critical care time was spent in direct patient care at the bedside or in the immediate area with this patient. Critical care was necessary to treat or prevent imminent or life-threatening deterioration of the following conditions sympathetic crashing acute pulmonary edema, renal failure, respiratory failure on BiPAP due to cocaine use, uncontrolled renal failure and CHF. This patient is high risk for decompensation and/or . This time was spent assessing and managing the patient, interpreting labs and imaging, coordinating care with other medical providers, gathering history from either the patient, their representatives, EMS or chart review, and discussing management with ICU. Discharge Plan Discharge Clinical Impression: Flash pulmonary edema, Cocaine use disorder, Acute renal failure superimposed on chronic kidney disease, Decompensated heart failure Patient Disposition: Admitted As Inpatient Print Language: Yi
[2025-05-23] MEDS: Furosemide 200 MG in 0.9 % Sodium Chloride 80 ML IVCONT (08:12)
--- NOTE | 2025-05-23 08:33 | ECG_ITS ---
Test Reason : repeat Blood Pressure : */* mmHG Vent. Rate : 98 BPM Atrial Rate : 98 BPM P-R Int : 150 ms QRS Dur : 106 ms QT Int : 416 ms P-R-T Axes : 36 -2 121 degrees QTcB Int : 531 ms Normal sinus rhythm Possible Left atrial enlargement Incomplete right bundle branch block T wave abnormality, consider lateral ischemia Prolonged QT Abnormal ECG When compared with ECG of 23-May-2025 06:10, T wave inversion no longer evident in Inferior leads Referred By: Guilherme Stallings Electronically Signed By: ALANIS WESLEY MD
[2025-05-23] MEDS: dexmedeTOMIDine HCL/NS 400 MCG/100 ML PLAST..BAG 24.15 MCG IVCONT ×2 (09:20→23:55)
[2025-05-23] MEDS: OLANZapine 10 MG VIAL IM (09:39)
[2025-05-23] MEDS: Nitroglycerin/D5W 100 MG/250 ML INFUS..BTL 60 MG IVCONT (10:07)
[2025-05-23] MEDS: Potassium Chloride/H20 10 MEQ/100 ML PIGGYBACK 100 MEQ IV (10:55)
--- NOTE | 2025-05-23 11:29 | MHC.CM.PN ---
PT IS CURRENTLY IN ICU ON C-PAP SUPPORT. PT IS LETHARGIC AND UNABLE TO PARTICIPATE IN ASSESSMENT AT THIS TIME. CHART REVIEW DONE: PT LIVES WITH , FUNCTIONALLY INDEPENDENT. PT USES C PAP AT [facility]. NO HCP. PCP JANA WYATT AT [facility]. DP: HOME, NO SERVICES IS THE GOAL. PT MAY NEED ASSIST WITH [facility] VS TRANSPORT? CM WILL CONTINUE TO FOLLOW FOR ANY CHANGE TO DC PLAN/NEEDS.
[2025-05-23] MEDS: dexmedeTOMIDine HCL/NS 400 MCG/100 ML PLAST..BAG 36.23 MCG IVCONT ×4 (11:52→20:17)
[2025-05-23 11:53] LABS: Anion Gap 20 (12-20); Blood Urea Nitrogen 89 mg/dL (9-16); Calcium 7.5 mg/dL (8.4-10.2); Carbon Dioxide 21 mmol/L (22-29); Chloride 105 mmol/L (96-108); Creatinine Clr Calc Pharmacy 16.8; Estimated Glomerular Filt Rate 10; Magnesium 2.0 mg/dL (1.6-2.6); Potassium 3.7 mmol/L (3.3-5.1); Sodium 142 mmol/L (135-145)
--- NOTE | 2025-05-23 12:03 | PM.CCHP ---
History of Present Illness Date of Service: 05/23/25 Chief Complaint: shortness of breath 39-year-old male with past medical history of chronic cocaine use, hypertension, hyperlipidemia, obesity, TRESSA on CPAP, tobacco dependence, marijuana use daily, constipation, status post ventral hernia repair with current unreducible hernia, bilateral inguinal hernia presented to the ED this morning with complains of shortness of breath. Shortness of breadth was acute in onset, severe associated with uncontrolled hypertension with blood pressure 228/154 with a map of 178mmHg. He was placed on BiPAP support for flash pulmonary edema, started on nitroglycerin drip and MICU was consulted for admission. He admits using cocaine 3 days ago. Review of Systems Review of Systems: Unable to obtain due to shortness of breath PMFSH Past Medical History Medical History Hyperlipidemia Hypertension Tobacco use Surgical History Surgical History H/O inguinal hernia repair H/O ventral hernia repair Social History Social History Household Members: Spouse Household Members Other:: unknown if any other household members Housing: Unknown / Unable to assess Do you presently have visiting nurse or other home services: No Patient Tobacco Use Status: Current someday Tobacco user Tobacco use type: Cigarette Smoked in Last 30 Days: Yes e-Cigarette/Vaping Use: Never Used Second Hand Smoke Exposure: No Use of substances other than those prescribed or required for medical reasons: Yes Substance Use Type: Crack/Cocaine Substance Use Frequency: Weekly Currently Displaying Signs/Symptoms of Drug Intoxication Withdrawal: No Advance Directives: No service: No Sexual orientation: Straight/Heterosexual Meds Allergies Allergy/AdvReac Type Severity Reaction Status Date / Time No Known Allergies Allergy Verified 05/23/25 05:08 Active Medications: Current Medications Heparin Sodium (Porcine) (Heparin Sodium,Porcine 5,000 Unit/Ml Vial) 5,000 unit SUBCUT Q8H [facility] Last Admin: 05/23/25 08:22 Dose: 5,000 unit Nitroglycerin (Nitroglycerin/D5w) 100 mg in 250 mls @ 0 mls/hr IVCONT .Q0M [facility]; Protocol Last Admin: 05/23/25 10:07 Dose: 400 mcg/min, 60 mls/hr Pantoprazole Sodium 40 mg/ (Sodium Chloride) 110 mls @ 400 mls/hr IV DAILY@0630 [facility] Last Infusion: 05/23/25 08:51 Dose: Infused Furosemide 200 mg/ Sodium (Chloride) 100 mls @ 5 mls/hr IVCONT .Q20H DANIEL Last Infusion: 05/23/25 09:43 Dose: 0 mg/hr, 0 mls/hr Dexmedetomidine HCl (Precedex) 400 mcg in 100 mls @ 0 mls/hr IVCONT .Q0M DANIEL; Protocol Last Admin: 05/23/25 11:52 Dose: 1.5 mcg/kg/hr, 36.23 mls/hr Nicardipine HCl 25 mg/ Sodium (Chloride) 250 mls @ 0 mls/hr IVCONT .Q0M DANIEL; Protocol Last Admin: 05/23/25 11:44 Dose: 5 mg/hr, 50 mls/hr Ketamine HCl 500 mg/ Sodium (Chloride) 255 mls @ 3.534 mls/hr IVCONT .Q24H DANIEL; Protocol Ondansetron HCl (Ondansetron Hcl 4 Mg/2 Ml Vial) 4 mg IVPUSH Q8H PRN PRN Reason: Nausea and Vomiting Home Medications ?Medication ?Instructions ?Recorded ?Confirmed ?Last Taken ?Type bumetanide 1 mg tablet 1 mg PO BID 01/27/25 01/27/25 Unknown History clonidine HCl 0.1 mg tablet 0.1 mg PO TID 01/27/25 01/27/25 Unknown History hydralazine 50 mg tablet 50 mg PO BID 01/27/25 01/27/25 Unknown History labetalol 200 mg tablet 200 mg PO TID 01/27/25 01/27/25 Unknown History prazosin 2 mg capsule 2 mg PO BEDTIME 01/27/25 01/27/25 Unknown History spironolactone 50 mg tablet 50 mg PO DAILY 01/27/25 01/27/25 Unknown History Physical Exam Vital Signs: Vital Signs: Last Vital Signs Temp 98.5 F 05/23/25 09:00 Pulse 95 05/23/25 11:44 Resp 29 H 05/23/25 11:13 BP 163/111 H 05/23/25 11:44 Pulse Ox 96 05/23/25 11:00 O2 Del Method CPAP 05/23/25 11:00 O2 Flow Rate 5 05/23/25 05:20 FiO2 30 05/23/25 11:00 Oxygen Flow Rate 8 05/23/25 05:05 BMI result Body Mass Index 36.3 General: Middle-aged male in severe acute distress, restless, agitated Nutritional Appearance: well nourished and overweight Eyes: appearance normal, both eyes and all related structures; Alignment and Position: alignment normal and position normal Neck: No lymphadenopathy, no thyromegaly Resp: bilateral air entry equal, bilateral crackles Cardio: Regular rate, regular rhythm; Heart sounds: S1 normal heart sound present and S2 normal heart sound present GI: soft, nontender, no guarding, no hepatosplenomegaly : bladder normal to inspection, bladder normal to palpation, no renal angle tenderness Skin: no rashes or lesions noted and elasticity normal Neuro: oriented to person, oriented to place, oriented to time and moves all extremities Results Labs 05/23/25 05:18 05/23/25 10:12 Labs: Laboratory Results - last 24 hr 05/23/25 05/23/25 05/23/25 05:18 05:25 09:55 MCV 74.9 L MCH 23.8 L MCHC 31.7 RDW 18.7 H Plt Count 157 L MPV 9.8 Immature Gran % (Auto) 0.7 H Neut % (Auto) 82.0 H Lymph % (Auto) 9.1 L [place] % (Auto) 5.2 Eos % (Auto) 2.5 Baso % (Auto) 0.5 Lymph # (Auto) 0.7 L [place] # (Auto) 0.4 Eos # (Auto) 0.2 Baso # (Auto) 0.0 Abs Immat Gran (auto) 0.06 H Absolute Neuts (auto) 6.6 Absolute Nucleated RBC 0.000 Nucleated RBC % (auto) 0.0 Hold Purple Top SEE NOTE Hold Blue Top SEE NOTE VBG pH 7.34 VBG pCO2 37 VBG pO2 116 VBG HCO3 20 L VBG O2 Saturation 100.0 VBG Base Excess -4.4 Anion Gap 21 H Estim Creat Clear Calc 16.5 Estimated GFR 10 Random Glucose 95 Calcium 7.8 L D Magnesium 2.1 Total Bilirubin 0.9 AST 45 H ALT 78 H Alkaline Phosphatase 68 B-Natriuretic Peptide 8190 H Total Protein 7.1 Albumin 4.3 COVID-19 (GUSTAVO) Negative COVID-19 Clin Com See Note Influenza Type A (CHARLES) Negative Influenza Type B (CHARLES) Negative Influenza A & B Note See Note 05/23/25 10:12 MCV MCH MCHC RDW Plt Count MPV Immature Gran % (Auto) Neut % (Auto) Lymph % (Auto) [place] % (Auto) Eos % (Auto) Baso % (Auto) Lymph # (Auto) [place] # (Auto) Eos # (Auto) Baso # (Auto) Abs Immat Gran (auto) Absolute Neuts (auto) Absolute Nucleated RBC Nucleated RBC % (auto) Hold Purple Top Hold Blue Top VBG pH VBG pCO2 VBG pO2 VBG HCO3 VBG O2 Saturation VBG Base Excess Anion Gap 20 Estim Creat Clear Calc 16.8 Estimated GFR 10 Random Glucose 107 Calcium 7.5 L Magnesium 2.0 Total Bilirubin AST ALT Alkaline Phosphatase B-Natriuretic Peptide Total Protein Albumin COVID-19 (GUSTAVO) COVID-19 Clin Com Influenza Type A (CHARLES) Influenza Type B (CHARLES) Influenza A & B Note Assessment and Plan (1) Cocaine use disorder: Status: Acute (2) Malignant hypertension: Status: Acute (3) Decompensated heart failure: Status: Acute (4) Flash pulmonary edema: Status: Acute (5) Acute renal failure superimposed on chronic kidney disease: Status: Acute Plan Neuro: Acute encephalopathy possibly due to toxic metabolic encephalopathy from cocaine use with underlying history of anxiety and psychiatric disorder He was initially placed on Precedex drip for control of his agitation and anxiety but he remained very much agitated pulling the BiPAP. Received 4 of Versed and 10 mg of Zyprexa without any changes in his mental status. We will start him on propofol and fentanyl after intubation Close neurological status monitoring in the ICU every hour Cardiac: Malignant hypertension: Secondary to cocaine abuse, started on nitro drip without much improvement so we will switch him to nicardipine drip Avoid beta blockers alone Presented with map of 178 mm per Hg, target map around 120-130mmHg until tomorrow morning Troponin leak is secondary to CKD and cardiac stress from malignant hypertension Respiratory: Acute respiratory failure due to pulmonary edema Initially placed on BiPAP support but patient intolerant to BiPAP so he is being intubated and placed on ventilator support On PRVC mode FiO2 40, PEEP 5, TV 400, RR 20 Peak pressures and plateau pressures are under the curve Ventilator management bundle with head end elevation, aspiration precaution, chlorhexidine mouthwash, daily awakening trials, daily spontaneous breathing trials GI: We will start on tube feeds Renal: Acute kidney injury on chronic kidney disease possibly secondary to malignant hypertension Has underlying CKD stage 5 possibly secondary to cocaine abuse and uncontrolled hypertension. However we will rule out other etiologies including ANCA vasculitis secondary to cocaine use. No emergent indication for renal replacement therapy, still making urine We will closely monitor I's and O's Avoid nephrotoxic medications Heme: Chronic anemia, closely monitor H&H, transfuse for hemoglobin less than 7 grams/deciliter Endocrine: Blood sugars under control Sliding scale insulin as needed Infectious disease: We will send pancultures No concerns for infection at this point Musculoskeletal: Decubitus ulcer prevention protocol Lines: Peripheral Prophylaxis: Heparin, pantoprazole Total critical care time spent is about 60 minutes on stabilizing the patient, changing him on multiple drips to control his anxiety and agitation, post intubation care, sedation management, close hemodynamic monitoring, titrating his antihypertensive drips, ventilator management, sedation management, review of chart, evaluation and admission to the critical care unit and this time is excluding any procedural time
[2025-05-23] MEDS: Ketamine HCl 500 MG in 0.9 % Sodium Chloride 250 ML IVCONT (12:12)
[2025-05-23] MEDS: Etomidate 20 MG/10 ML VIAL 40 MG IVPUSH (12:40)
--- NOTE | 2025-05-23 13:00 | CA_ITS ---
Transthoracic Echocardiogram Amended Patient (Last, First, Middle): Troy Beltran, Gender: M Date of : 1985 Age: 39 Procedure Date: 05/23/2025 Procedure Type: Transthoracic Echocardiogram Location: ICU Height: 165.1 cm Weight: 98.88 kg BSA: 2.05 m2 Heart Rate: 108 bpm BP: 152 / 93 mmHg Container Finishing Inspector: THERESA Referring MD: Luis Miguel Nichole MD Oreman: Teo Neil MD Symptoms: pulmonary edema Study Quality: Adequate ECG Rhythm: Sinus tachycardia Conclusions: - 1. [id number] LV systolic dysfunction with severe left ventricular hypertrophy 2. Dilated right ventricle with preserved contractility 3. At least moderately dilated left and right atrium 4. Cardiac valvular Dopplers within normal limits 5. Severely elevated right ventricular systolic pressure with significantly elevated right atrial pressures 6. Trivial to small pericardial effusion Findings Left Ventricle Normal left ventricular cavity size. There is severely increased left ventricular wall thickness. The left ventricular systolic function is mild to moderately decreased. The visually estimated ejection fraction is between 40-45%. There is no evidence of regional wall motion abnormalities. Diastolic function is indeterminate on the basis of available data. Peak GLS is -9.8%, severely reduced. Right Ventricle Moderately increased right ventricular cavity size. There is normal right ventricular systolic function. Atria The left atrium is moderately dilated. Interatrial shunt cannot be excluded. The right atrium is moderately dilated. Aortic Valve Normal aortic valve structure and function. There is no aortic valve stenosis. There is no aortic valve regurgitation. Mitral Valve There is mild anterior and posterior mitral leaflet thickening. There is mild mitral annular calcification. There is mild mitral valve regurgitation. There is no mitral valve stenosis. Pulmonic Valve The pulmonic valve is likely normal. There is mild pulmonic valve regurgitation. Tricuspid Valve Normal tricuspid valve structure. There is mild to moderate tricuspid valve regurgitation. Significantly elevated right atrial pressure. Severe pulmonary hypertension is present. Great Vessels All visible segments of the aorta are normal in size. There is no dilatation of the ascending aorta measuring 3.30 cm. The pulmonary artery is severely dilated. Venous The inferior vena cava is moderately dilated and does not collapse with inspiration. Pericardium/Pleural There is a trivial circumferential pericardial effusion. Measurements 2D Linear Measurements IVSd: 1.55 0.6-0.9/0.6-1.0 cm LVIDd: 5.80 3.9-5.3/4.2-5.9 cm LVIDd Index: 2.83 2.4-3.2/2.2-3.1 cm/m2 LVIDs: 3.80 2.0-3.6 cm LVPWd: 1.76 0.7-1.1 cm LA Diam: 3.70 2.7-3.8/3.0-4.0 cm LAIDs Index: 1.80 1.5-2.3 cm/m2 LV Mass: 583.38 67-162/88-224 g LV Mass Index: 284.58 43-95/49-115 g/m2 LVOT Diam: 2.20 3.0+(-)1.3 cm 2D Volumes LA Vol: 41.70 2D Systolic Function EF 4C: 46.00 >55% EF 2C: 33.40 >55% EF BiP: 39.60 >55% Mitral Valve E'Lateral: 15.00 E'Medial: 9.14 Aortic Valve AoV Pk Paco: 1.62 AoV Pk Grad: 10.00 AMNA: 2.82 LVOT LVOT Pk Paco: 1.29 LVOT Mn Paco: 0.93 LVOT VTI: 0.19 LVOT Pk Grad: 7.00 LVOT Mn Grad: 4.00 LVOT Diam: 2.20 LVOT Area: 3.80 Diastolic Function E'Medial: 9.14 E' Laterial: 15.00 Right Ventricle TAPSE (mm): 25.30 TVS' Paco: 21.20 Tricuspid Valve TR Pk Paco: 4.34 TR Pk Grad: 75.00 RA Press: 15.00 RVSP: 90.00 Great Vessels Aorta Sinus of Valsalva: 3.20 2.0-3.5 cm Ao Asc: 3.30 2.1-3.4 cm Pulmonary Valve PV Pk Paco: 1.14 Peak PV Grad: 5.00 NV Pk Paco: 2.93 Updated in Other Vendor System with Status of Final Teo Neil MD electronically signed on 05/23/2025 2:54:00 PM with status of Final
--- NOTE | 2025-05-23 13:03 | PC.RT ---
Pt agitated in ICU, not tolerating CPAP mask. MD requested pt be intubated. Pt was sedated and medicated per MD orders and intubated w/o difficulty by w/ 7.5 ETT 21@lip. ETT confirmed w/ colormetric CO2, bilateral chest rise and lung sounds, ETCO2 monitoring and pending XRAY. Pt placed on mechanical ventilation as documented and yared well.
--- NOTE | 2025-05-23 13:23 | W.PM.CCHP ---
Procedures Date of Service Date of Service: 05/23/25 Intubation Consent for Procedure: Emergent-no informed consent obtained Time out performed: Yes Sedative: propofol Mg given: 150 Paralytic: rocuronium Mg given: 100 Laryngoscope: Garrison ET tube size: 7.5 ET tube uncuffed: Yes Tube secured depth (cm): 25 Tube secured location: lips Tube placement confirmation: visualized tube passing through cords Patient tolerated procedure: well and no complications
[2025-05-23] MEDS: Midazolam HCl/NS 50 MG/50 ML PLAST..BAG IVCONT (14:59)
--- NOTE | 2025-05-23 15:09 | PHA.MEDREC ---
Addendum entered by Wilson Mejia RPh 05/23/25 15:23: Dr. Nichole is aware of the situation. Original Note: Pharmacy Consult ? Medication Reconciliation Pharmacy has completed the medication reconciliation. Unable to talk to patient due to intubation, no phone number for spouse for contact. Called PCP office [facility] [phone] for current med list and but they required release form signed by patient then was transferred to medication request line (for verbal list) but had to leave voicemail. Med rec was done using current pharmacy claims, will update if office calls back or if spouse visits.
[2025-05-23] MEDS: Chlorhexidine Gluc Oral Rinse 15 ML MOUTHWASH BUCCAL (15:34)
[2025-05-23 17:33] LABS: Appearance Urine Clear; Glucose Urine UA Negative (Negative); PH 5.0 (5.0-9.0); Specific Gravity - Urine 1.010 (1.005-1.025); UMIC TRIGGER UA YES
[2025-05-23 17:48] LABS: Cannabinoid Screen Urine POSITIVE (Not Detect)
[2025-05-23 17:58] LABS: Total Protein Urine Random 142 mg/dL (<12)
[2025-05-23 18:13] LABS: Microalbum/Creatinine Ratio Ur 1670.4 ug/mg cr (<30)
--- NOTE | 2025-05-23 18:19 | PC.NURSE ---
Assumed care at 0900. Pt arrived from ED with nitro drip running at 400mcg and lasix drip running at 10mg. At approx 0930, pt showed increased agitation, complaining of severe leg cramps. MD ordered IM zyprexa and precedex drip. Agitation increased towards violence. Pt unwilling to wear cpap mask and complaining of pain in legs. MD ordered intubation. RT and MD at bedside. IV push propofol, rocuronium, and etomidate administered per MD orders. Pt intubated at 1247 with a 7.5 tube sitting 22 at the lip, later repositioned to 26 upon xray viewing. OG tube inserted as well. Pt continued agitated behavior, requiring a versed drip. With stimulation, pt will pull at restraints and move head. Pt does not open eyes or follow commands. Pt?s spouse visited; update given & phone number entered into chart. Pt noted to be retaining over 800 mL urine; MD ordered llanos inserted. Pt repositioned q2hr as tolerated. Fall & safety precautions in place. See MAR and assessments for further details.
[2025-05-24] VITALS (41 sets, daily range): BP systolic 111–174; BP diastolic 69–117; PULSE 68–74; RESP 17–30; TEMP 34.7–38.3; O2SAT 88–96; BMI 36.1
[2025-05-24] MEDS: Furosemide 200 MG in 0.9 % Sodium Chloride 80 ML IVCONT ×2 (03:59→18:21)
[2025-05-24] MEDS: dexmedeTOMIDine HCL/NS 400 MCG/100 ML PLAST..BAG 19.32 MCG IVCONT ×4 (03:59→19:55)
[2025-05-24 05:14] LABS: VBG HCO3 21 mmol/L (22-26); VBG O2 % Saturation 89.0 %
[2025-05-24 05:16] LABS: MANUAL DIFF FLAG NO
[2025-05-24 05:17] LABS: Hematocrit 32.9 % (42.0-52.0); Hemoglobin 10.3 g/dl (14.0-18.0); Imm Gran Abs Auto 0.04 X10*3/uL (0.00-0.03); Imm Gran Pct Auto 0.4 % (0.0-0.4); Lymphocytes Absolute Auto 0.9 X10*3/uL (1.2-4.9); Mean Corpuscular HGB Conc 31.3 g/dl (31.0-36.0); Mean Corpuscular Hemoglobin 23.8 pg (27.0-33.0); Mean Corpuscular Volume 76.0 fL (80.0-98.0); NRBC Abs Auto 0.000 X10*3/uL (0.0-0.012); NRBC Pct Auto 0.0 /100WBC (0.0-0.2); Platelet Count 153 X10*3/uL (160-400); Red Blood Count 4.33 X10*6/uL (4.60-5.80); White Blood Count 9.9 X10*3/uL (4.8-10.8)
[2025-05-24 05:40] LABS: Magnesium 2.2 mg/dL (1.6-2.6)
[2025-05-24 05:56] LABS: Alanine Aminotransferase 61 U/L (0-40); Albumin Level 3.6 g/dL (3.5-5.0); Alkaline Phosphatase 52 U/L (39-117); Anion Gap 18 (12-20); Aspartate Amino Transferase 35 U/L (5-37); Blood Urea Nitrogen 95 mg/dL (9-16); Calcium 7.7 mg/dL (8.4-10.2); Carbon Dioxide 22 mmol/L (22-29); Chloride 105 mmol/L (96-108); Creatinine Clr Calc Pharmacy 15.3; Estimated Glomerular Filt Rate 9; Potassium 4.0 mmol/L (3.3-5.1); Sodium 141 mmol/L (135-145); Total Protein 6.2 g/dL (6.5-8.0)
--- NOTE | 2025-05-24 07:09 | PC.NURSE ---
Upon initial assessment at approximately?1900- Pt intubated and sedated. ETT # 7.5, 26cm?@ lip. On ACVC settings, FiO2 70%, able to titrate down to 50% overnight, SpO2 >90. RASS -4, Propofol and Precedex gtts titrated down per protocol. Versed gtt infusing per MAR. NSR on tele with prolonged QTc, HR 70s, PA Ike notified- Precedex gtt titrated down per PA.?Cardene gtt paused at approximately?2030 per protocol. SBP trending up overnight to 160s, PA notified- PO Amlodopine?and Hydralazine administered per MAR without effect, SBP increased to 170s. Cardene gtt restarted and titrated per MAR with good effect. Lasix gtt infusing per MAR. Craig in place, draining pale yellow urine.?OGT clamped. Positive bowel sounds. No BM overnight. Scattered bruising and abrasions, including slight bruising to right eyelid. Bed locked and in lowest position, bed alarm on. See EMR/flowsheet for further details. Report given to oncoming RN at 0700. ?
[2025-05-24] MEDS: Midazolam HCl/NS 50 MG/50 ML PLAST..BAG IVCONT ×2 (08:00→23:02)
[2025-05-24] MEDS: Chlorhexidine Gluc Oral Rinse 15 ML MOUTHWASH BUCCAL (08:04)
[2025-05-24 08:27] LABS: Syphilis Screen Nonreactive (Nonreactive)
--- NOTE | 2025-05-24 08:48 | P.PNCC_ITS ---
Subjective Subjective Date of Service: 05/24/25 Interval History: no new issues, stable on the vent Critical Care Time (minutes): 35 Physical Exam 2 Vital Signs: Vital Signs: Last Vital Signs Temp 100.8 F H 05/24/25 08:00 Pulse 73 05/24/25 08:00 Resp 30 H 05/24/25 08:00 BP 129/76 05/24/25 08:05 Pulse Ox 90 L 05/24/25 08:00 O2 Del Method Mechanical Ventil ation 05/24/25 08:00 O2 Flow Rate 45 05/24/25 05:00 FiO2 35 05/24/25 08:01 Oxygen Flow Rate 8 05/23/25 05:05 BMI result Body Mass Index 36.1 General:not in acute distress, ill appearing and tired appearing Nutritional Appearance: well nourished and overweight Eyes: appearance normal, both eyes and all related structures; Alignment and Position: alignment normal and position normal Neck: No lymphadenopathy, no thyromegaly Resp: bilateral air entry equal, occasional added sounds present Cardio: Regular rate, regular rhythm; Heart sounds: S1 normal heart sound present and S2 normal heart sound present GI: soft, nontender, no guarding, no hepatosplenomegaly : bladder normal to inspection, bladder normal to palpation, no renal angle tenderness Skin: no rashes or lesions noted and elasticity normal Neuro: sedated, moves all extremities Objective Data Labs 05/24/25 05:04 05/24/25 05:04 Labs: Laboratory Results - last 24 hr 05/23/25 05/23/25 05/23/25 09:55 10:12 15:15 WBC RBC Hgb Hct MCV MCH MCHC RDW Plt Count MPV Immature Gran % (Auto) Neut % (Auto) Lymph % (Auto) Gem % (Auto) Eos % (Auto) Baso % (Auto) Lymph # (Auto) Gem # (Auto) Eos # (Auto) Baso # (Auto) Abs Immat Gran (auto) Absolute Neuts (auto) Absolute Nucleated RBC Nucleated RBC % (auto) Hold Purple Top SEE NOTE VBG pH VBG pCO2 VBG pO2 VBG HCO3 VBG O2 Saturation VBG Base Excess Sodium 142 Potassium 3.7 Chloride 105 Carbon Dioxide 21 L Anion Gap 20 BUN 89 H Creatinine 6.36 H* Estim Creat Clear Calc 16.8 Estimated GFR 10 Random Glucose 107 Calcium 7.5 L Phosphorus Magnesium 2.0 Total Bilirubin AST ALT Alkaline Phosphatase Total Protein Albumin Urine Color Urine Appearance Urine pH Ur Specific [place] Urine Protein Urine Glucose (UA) Urine Ketones Urine Blood Urine Nitrite Ur Leukocyte Esterase Urine RBC Urine WBC Ur Squamous Epith Cells Urine Bacteria Hyaline Casts U Random Total Protein Urine Creatinine Urine Microalbumin Microalb/Creat Ratio Urine Opiates Screen Ur Buprenorphine Scrn Ur Oxycodone Screen Urine Methadone Screen Urine Fentanyl Screen Ur Barbiturates Screen Ur Phencyclidine Scrn Ur Amphetamines Screen U Benzodiazepines Scrn Urine Cocaine Screen U Marijuana (THC) Screen T.pallidum Ab (EIA) Nonreactive 05/23/25 05/24/25 05/24/25 17:09 05:04 05:10 WBC 9.9 RBC 4.33 L Hgb 10.3 L Hct 32.9 L MCV 76.0 L MCH 23.8 L MCHC 31.3 RDW 18.3 H Plt Count 153 L MPV 10.2 Immature Gran % (Auto) 0.4 Neut % (Auto) 84.0 H Lymph % (Auto) 9.0 L Gem % (Auto) 6.2 Eos % (Auto) 0.3 Baso % (Auto) 0.1 Lymph # (Auto) 0.9 L Gem # (Auto) 0.6 Eos # (Auto) 0.0 Baso # (Auto) 0.0 Abs Immat Gran (auto) 0.04 H Absolute Neuts (auto) 8.3 Absolute Nucleated RBC 0.000 Nucleated RBC % (auto) 0.0 Hold Purple Top VBG pH 7.43 VBG pCO2 32 VBG pO2 60 VBG HCO3 21 L VBG O2 Saturation 89.0 VBG Base Excess -1.9 Sodium 141 Potassium 4.0 Chloride 105 Carbon Dioxide 22 Anion Gap 18 BUN 95 H Creatinine 7.01 H* Estim Creat Clear Calc 15.3 Estimated GFR 9 Random Glucose 102 Calcium 7.7 L Phosphorus 9.0 H Magnesium 2.2 Total Bilirubin 0.4 AST 35 ALT 61 H Alkaline Phosphatase 52 Total Protein 6.2 L Albumin 3.6 Urine Color Yellow Urine Appearance Clear Urine pH 5.0 Ur Specific [place] 1.010 Urine Protein 300 (3+) H Urine Glucose (UA) Negative Urine Ketones Negative Urine Blood Negative Urine Nitrite Negative Ur Leukocyte Esterase Negative Urine RBC 0-2 Urine WBC 0-5 Ur Squamous Epith Cells 0-2 Urine Bacteria None Seen Hyaline Casts 0-2 U Random Total Protein 142 H Urine Creatinine 57.17 Urine Microalbumin 955.0 Microalb/Creat Ratio 1670.4 H Urine Opiates Screen Not Detected Ur Buprenorphine Scrn Not Detected Ur Oxycodone Screen Not Detected Urine Methadone Screen Not Detected Urine Fentanyl Screen Not Detected Ur Barbiturates Screen Not Detected Ur Phencyclidine Scrn Not Detected Ur Amphetamines Screen Not Detected U Benzodiazepines Scrn POSITIVE H Urine Cocaine Screen POSITIVE H U Marijuana (THC) Screen POSITIVE H T.pallidum Ab (EIA) Progress Note: A&P Assessment and plan (1) 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 He received some Versed prior to the UDS Close neurological status monitoring in the ICU every hour Cardiac: Malignant hypertension: Improved Troponin leak is secondary to CKD and cardiac stress from malignant hypertension Respiratory: Acute respiratory failure due to pulmonary edema On PRVC mode FiO2 40, PEEP 5, TV 400, RR 20 Peak pressures and plateau pressures are under the curve Ventilator management bundle with head end elevation, aspiration precaution, chlorhexidine mouthwash, daily awakening trials, daily spontaneous breathing trials GI: We will start on tube feeds Renal: Acute kidney injury on chronic kidney disease possibly secondary to malignant hypertension Has underlying CKD stage 5 possibly secondary to cocaine abuse and uncontrolled hypertension. However we will rule out other etiologies including ANCA vasculitis secondary to cocaine use. No emergent indication for renal replacement therapy, still making urine We will closely monitor I's and O's Avoid nephrotoxic medications Heme: Chronic anemia, closely monitor H&H, transfuse for hemoglobin less than 7 grams/deciliter Endocrine: Blood sugars under control Sliding scale insulin as needed Infectious disease: Negative pancultures No concerns for infection at this point Musculoskeletal: Decubitus ulcer prevention protocol Lines: Peripheral Prophylaxis: Heparin, pantoprazole Quality Stroke Does the patient have a stroke diagnosis?: No VTE Prior VTE?: No VTE Risk Level:: Medical - low VTE Device Contraindication: N/A - Device Ordered VTE Drug Contraindication: N/A - Med Ordered
[2025-05-24 08:56] LABS: HBS Num1 13.17 mIU/mL (0-7.99); HBc Num1 0.14 S/CO (0.00-0.79); HBsAGNum1 0.42 S/CO (0.00-0.99); HIV Num 1 0.06 S/CO (0.00-0.99); Hepatitis B Surface Antigen Negative (Negative); ~HepC Num1 0.09 S/CO (0.00-0.79); ~Hepatitis B Surface Antibody REACTIVE (Nonreactive); ~Hepatitis C Antibody Nonreactive (Nonreactive)
[2025-05-24 09:21] LABS: Venous Blood Gas Refer to POC result
--- NOTE | 2025-05-24 15:00 | MHC.CM.PN ---
Pt intubated and on Lasix and Cardene gtt; no plans to wean or extubate. Pt from home with family and should return when medically stable. May need transportation. CM to follow.
--- NOTE | 2025-05-24 18:33 | PC.NURSE ---
Assumed care @ 0700? Neuro: Sedated,? on Versed, precedex, and propofol- per NOV. does not open eyes, does not follow commands,? Flaccid extremities (passive ROM performed). Resp: ventilatory support Cardiac: Sinus Rhythm on tele, Nicardipine gtt. Titrated off per NOV.? GI: unknown LBM, +bowel sounds, soft abd, OGT in place/clamp : Craig in place, patent /draining. Skin: ?intact (repositioning maintained)? Temp: low grade fever, ice packs in place? Lines: peripheral IVs
[2025-05-24 22:39] LABS: Proteinase 3 PR3 Antibodies <1.0 AI
[2025-05-25] VITALS (41 sets, daily range): BP systolic 123–190; BP diastolic 75–121; PULSE 53–102; RESP 18–30; TEMP 34.5–38.6; O2SAT 88–96; BMI 34.1
[2025-05-25] MEDS: dexmedeTOMIDine HCL/NS 400 MCG/100 ML PLAST..BAG 24.15 MCG IVCONT ×4 (00:45→12:14)
[2025-05-25 04:29] LABS: VBG HCO3 23 mmol/L (22-26); VBG O2 % Saturation 93.0 %
[2025-05-25 04:46] LABS: MANUAL DIFF FLAG NO
[2025-05-25 04:50] LABS: Hematocrit 34.0 % (42.0-52.0); Hemoglobin 10.9 g/dl (14.0-18.0); Imm Gran Abs Auto 0.03 X10*3/uL (0.00-0.03); Imm Gran Pct Auto 0.3 % (0.0-0.4); Lymphocytes Absolute Auto 0.9 X10*3/uL (1.2-4.9); Mean Corpuscular HGB Conc 32.1 g/dl (31.0-36.0); Mean Corpuscular Hemoglobin 24.2 pg (27.0-33.0); Mean Corpuscular Volume 75.4 fL (80.0-98.0); NRBC Abs Auto 0.000 X10*3/uL (0.0-0.012); NRBC Pct Auto 0.0 /100WBC (0.0-0.2); Platelet Count 143 X10*3/uL (160-400); Red Blood Count 4.51 X10*6/uL (4.60-5.80); White Blood Count 9.0 X10*3/uL (4.8-10.8)
[2025-05-25 04:52] LABS: Venous Blood Gas Refer to POC result
[2025-05-25 05:09] LABS: Alanine Aminotransferase 48 U/L (0-40); Albumin Level 3.3 g/dL (3.5-5.0); Alkaline Phosphatase 46 U/L (39-117); Anion Gap 22 (12-20); Aspartate Amino Transferase 29 U/L (5-37); Blood Urea Nitrogen 99 mg/dL (9-16); Calcium 7.4 mg/dL (8.4-10.2); Carbon Dioxide 21 mmol/L (22-29); Chloride 107 mmol/L (96-108); Creatinine Clr Calc Pharmacy 14.6; Estimated Glomerular Filt Rate 9; Magnesium 2.3 mg/dL (1.6-2.6); Potassium 3.9 mmol/L (3.3-5.1); Sodium 146 mmol/L (135-145); Total Protein 6.3 g/dL (6.5-8.0)
--- NOTE | 2025-05-25 05:31 | PC.NURSE ---
CARE ASSUMED 7PM..REMAINS INTUBATED/VCV VENT SUPPORT..SEDATED WITH PROPOFOL/VERSED/PRECIDEX DRIPS PER NOV..MOVES EXTREMETIES BUT NOT TO COMMAND..REMAINS OFF NICARDIPINE DRIP...ANTIHYPERTENSIVE MEDS PER NOV GIVEN VIA OG-TUBE...DBP REMAINS ELEVATED 90'S-100'S..PROVIDER AWARE..LASIX DRIP 10 MG/HR..TIJERINA DRAINING LARGE AMOUNTS CLEAR PALE YELLOW URINE..AM CREATININE= 7.11...PROVIDER AWARE
[2025-05-25] MEDS: Chlorhexidine Gluc Oral Rinse 15 ML MOUTHWASH BUCCAL (07:56)
--- NOTE | 2025-05-25 08:42 | P.PNCC_ITS ---
Subjective Subjective Date of Service: 05/25/25 Interval History: no new events urine output about 6litres on ventilator support Critical Care Time (minutes): 35 Physical Exam 2 Vital Signs: Vital Signs: Last Vital Signs Temp 101.5 F H 05/25/25 07:00 Pulse 74 05/25/25 07:56 Resp 24 H 05/25/25 07:00 BP 163/103 H 05/25/25 07:55 Pulse Ox 94 05/25/25 07:00 O2 Del Method Mechanical Ventil ation 05/25/25 07:00 O2 Flow Rate 45 05/24/25 05:00 FiO2 28 05/25/25 07:43 Oxygen Flow Rate 8 05/23/25 05:05 BMI result Body Mass Index 34.1 General: Young male acute distress, ill appearing and tired appearing Nutritional Appearance: well nourished and overweight Eyes: appearance normal, both eyes and all related structures; Alignment and Position: alignment normal and position normal Neck: No lymphadenopathy, no thyromegaly Resp: bilateral air entry equal, occasional added sounds present Cardio: Regular rate, regular rhythm; Heart sounds: S1 normal heart sound present and S2 normal heart sound present GI: soft, nontender, no guarding, no hepatosplenomegaly : bladder normal to inspection, bladder normal to palpation, no renal angle tenderness Skin: no rashes or lesions noted and elasticity normal Neuro: No focal deficits, moves all extremities Objective Data Labs 05/25/25 04:21 05/25/25 04:21 Labs: Laboratory Results - last 24 hr 05/23/25 05/25/25 05/25/25 15:15 04:21 04:25 WBC 9.0 RBC 4.51 L Hgb 10.9 L Hct 34.0 L MCV 75.4 L MCH 24.2 L MCHC 32.1 RDW 18.4 H Plt Count 143 L MPV 10.3 Immature Gran % (Auto) 0.3 Neut % (Auto) 81.5 H Lymph % (Auto) 9.4 L [place] % (Auto) 5.8 Eos % (Auto) 2.6 Baso % (Auto) 0.4 Lymph # (Auto) 0.9 L [place] # (Auto) 0.5 Eos # (Auto) 0.2 Baso # (Auto) 0.0 Abs Immat Gran (auto) 0.03 Absolute Neuts (auto) 7.3 Absolute Nucleated RBC 0.000 Nucleated RBC % (auto) 0.0 VBG pH 7.44 H VBG pCO2 34 VBG pO2 71 VBG HCO3 23 VBG O2 Saturation 93.0 VBG Base Excess 0.3 Sodium 146 H Potassium 3.9 Chloride 107 Carbon Dioxide 21 L Anion Gap 22 H BUN 99 H Creatinine 7.11 H* Estim Creat Clear Calc 14.6 Estimated GFR 9 Random Glucose 78 Calcium 7.4 L Phosphorus 8.0 H Magnesium 2.3 Total Bilirubin 0.5 AST 29 ALT 48 H Alkaline Phosphatase 46 Total Protein 6.3 L Albumin 3.3 L Proteinase 3 (PR3) Ab <1.0 Myeloperoxidase Ab <1.0 Complement C3 106 Complement C4 22 Hep Bs Antigen Negative Hep Bs Antibody REACTIVE Hep B Core Total Ab Nonreactive Hepatitis C Ab (EIA) Nonreactive HIV 1&2 Ab/P24 Ag 4thGn Nonreactive Progress Note: A&P Assessment and plan (1) Marijuana use: Status: Acute (2) 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 we will stop the drip and switch to Lasix 80 mg IV push b.i.d. Troponin leak is secondary to CKD and cardiac stress from malignant hypertension QT 496 Respiratory: Acute respiratory failure due to pulmonary edema On PRVC mode FiO2 40, PEEP 5, TV 400, RR 20, we placed the patient on pressure support for weaning trials Peak pressures and plateau pressures are under the curve Ventilator management bundle with head end elevation, aspiration precaution, chlorhexidine mouthwash, daily awakening trials, daily spontaneous breathing trials GI: on tube feeds Renal: Acute kidney injury on chronic kidney disease possibly secondary to malignant hypertension Has underlying CKD stage 5 possibly secondary to cocaine abuse and uncontrolled hypertension. 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 No emergent indication for renal replacement therapy, still making urine We will closely monitor I's and O's Avoid nephrotoxic medications Heme: Chronic anemia, closely monitor H&H, transfuse for hemoglobin less than 7 grams/deciliter Endocrine: Blood sugars under control Sliding scale insulin as needed Infectious disease: Negative pancultures No concerns for infection at this point Musculoskeletal: Decubitus ulcer prevention protocol Lines: Peripheral Prophylaxis: Heparin, pantoprazole Critical care time spent is about 45 minutes on ventilator management, changing ventilator settings, weaning trials, weaning sedation while closely monitoring his neurological status, close hemodynamic status monitoring, review of labs and images at this time is excluding any procedural time Quality Stroke Does the patient have a stroke diagnosis?: No VTE Prior VTE?: No VTE Risk Level:: Medical - low VTE Device Contraindication: N/A - Device Ordered VTE Drug Contraindication: N/A - Med Ordered
[2025-05-25] MEDS: Furosemide 100 MG/10 ML VIAL 80 MG IVPUSH ×2 (12:15→21:04)
--- NOTE | 2025-05-25 14:41 | MHC.CM.PN ---
PT REMAINS IN ICU ON VENTILATORY SUPPORT WITH WEANING TRIALS. CM WILL CONTINUE TO FOLLOW.
[2025-05-25] MEDS: dexmedeTOMIDine HCL/NS 400 MCG/100 ML PLAST..BAG 14.49 MCG IVCONT (17:56)
--- NOTE | 2025-05-25 19:15 | PC.NURSE ---
Per MD order patient extubated today, cuff leak assessed in advance, remains drowsy, weak tracking with eyes, nodds off when speaking with patient, unable to produce voice and communicate verbally. following simple commands. severely weak, but strength equal bilaterally. Initially after extubation patient became hypoxic with increased work of breathing, placed on nasal cannula with improvements in hypoxia, but WOB persisted... therefore placed on bipap for multiple hours. Later in the afternoon when bipap removed, patient was still drowsy, unable to vocalize, family at the bedside, educated on patient condition. Unable to assess mentation in depth, nods and shakes head appropriately to questions. patient not fit for swallow evaluation, too drowsy, and barely able to close mouth around soaked sponge with mouth care
[2025-05-25] MEDS: Nitroglycerin 2 % Oint 1 GM Packet 1 INCH TRANSDERMA (22:32)
[2025-05-26] VITALS (43 sets, daily range): BP systolic 132–175; BP diastolic 64–100; PULSE 47–112; RESP 16–32; TEMP 36.1–38.2; O2SAT 90–98; BMI 26.9
[2025-05-26 05:17] LABS: VBG HCO3 23 mmol/L (22-26); VBG O2 % Saturation 92.0 %
[2025-05-26 05:19] LABS: MANUAL DIFF FLAG NO
[2025-05-26 05:20] LABS: Venous Blood Gas Refer to POC result
[2025-05-26 05:21] LABS: Hematocrit 34.5 % (42.0-52.0); Hemoglobin 10.8 g/dl (14.0-18.0); Imm Gran Abs Auto 0.04 X10*3/uL (0.00-0.03); Imm Gran Pct Auto 0.4 % (0.0-0.4); Lymphocytes Absolute Auto 0.4 X10*3/uL (1.2-4.9); Mean Corpuscular HGB Conc 31.3 g/dl (31.0-36.0); Mean Corpuscular Hemoglobin 23.7 pg (27.0-33.0); Mean Corpuscular Volume 75.7 fL (80.0-98.0); NRBC Abs Auto 0.000 X10*3/uL (0.0-0.012); NRBC Pct Auto 0.0 /100WBC (0.0-0.2); Platelet Count 156 X10*3/uL (160-400); Red Blood Count 4.56 X10*6/uL (4.60-5.80); White Blood Count 10.3 X10*3/uL (4.8-10.8)
[2025-05-26 05:41] LABS: Alanine Aminotransferase 40 U/L (0-40); Albumin Level 3.8 g/dL (3.5-5.0); Alkaline Phosphatase 54 U/L (39-117); Anion Gap 24 (12-20); Aspartate Amino Transferase 22 U/L (5-37); Blood Urea Nitrogen 104 mg/dL (9-16); Calcium 7.6 mg/dL (8.4-10.2); Carbon Dioxide 22 mmol/L (22-29); Chloride 109 mmol/L (96-108); Creatinine Clr Calc Pharmacy 14.1; Estimated Glomerular Filt Rate 8; Magnesium 2.5 mg/dL (1.6-2.6); Potassium 3.4 mmol/L (3.3-5.1); Sodium 152 mmol/L (135-145); Total Protein 6.9 g/dL (6.5-8.0)
--- NOTE | 2025-05-26 06:26 | PC.NURSE ---
Assumed care 1900. Pt alert - nonverbal, nods to y/n questions, follows commands. Pt has episodes?of restlessness, requiring frequent?redirection. On bipap for increased work of breathing - see bipap assessment. SR on tele, HR 90s. Systolic?BP >160, nicardipine?gtt restarted?per YONATHAN Ramires - see MAR for titrations. Craig in place draining clear yellow urine. Incontinent of stool x1. Redness to R sclera, YONATHAN Ramires?made aware. Hygiene provided, repositioned Q2.?
--- NOTE | 2025-05-26 07:41 | PC.RT ---
Pt transitioned off bipap to 2 lpm n/c. gt Hough, bipap at bedside.
--- NOTE | 2025-05-26 11:57 | PM.CCPN ---
Subjective Subjective Date of Service: 05/26/25 Interval History: Extubated yesterday, currently on nasal cannula oxygen Follows commands but does not speak; possibly in withdrawals as he has congested eyes Critical Care Time (minutes): 35 Physical Exam Vital Signs: Vital Signs: Last Vital Signs Temp 100.8 F H 05/26/25 11:00 Pulse 104 H 05/26/25 11:37 Resp 26 H 05/26/25 11:00 BP 175/99 H 05/26/25 11:37 Pulse Ox 94 05/26/25 11:00 O2 Del Method Nasal Cannula 05/26/25 11:00 O2 Flow Rate 1 05/26/25 11:00 FiO2 30 05/26/25 11:23 Oxygen Flow Rate 8 05/23/25 05:05 BMI result Body Mass Index 26.9 General: Middle-aged male in mild acute distress Nutritional Appearance: well nourished and overweight Eyes: appearance normal, both eyes and all related structures; Alignment and Position: alignment normal and position normal Neck: No lymphadenopathy, no thyromegaly Resp: bilateral air entry equal, occasional added sounds present Cardio: Regular rate, regular rhythm; Heart sounds: S1 normal heart sound present and S2 normal heart sound present GI: soft, nontender, no guarding, no hepatosplenomegaly : bladder normal to inspection, bladder normal to palpation, no renal angle tenderness Skin: no rashes or lesions noted and elasticity normal Neuro: Aphasic, follows command, no focal deficits moves all extremities Objective Data Labs 05/26/25 05:12 05/26/25 05:12 Labs: Laboratory Results - last 24 hr 05/26/25 05:12 WBC 10.3 RBC 4.56 L Hgb 10.8 L Hct 34.5 L MCV 75.7 L MCH 23.7 L MCHC 31.3 RDW 18.6 H Plt Count 156 L MPV 10.2 Immature Gran % (Auto) 0.4 Neut % (Auto) 87.5 H Lymph % (Auto) 4.0 L [place] % (Auto) 5.7 Eos % (Auto) 1.9 Baso % (Auto) 0.5 Lymph # (Auto) 0.4 L [place] # (Auto) 0.6 Eos # (Auto) 0.2 Baso # (Auto) 0.1 Abs Immat Gran (auto) 0.04 H Absolute Neuts (auto) 9.0 H Absolute Nucleated RBC 0.000 Nucleated RBC % (auto) 0.0 VBG pH 7.44 H VBG pCO2 33 VBG pO2 73 VBG HCO3 23 VBG O2 Saturation 92.0 VBG Base Excess 0.1 Sodium 152 H Potassium 3.4 Chloride 109 H Carbon Dioxide 22 Anion Gap 24 H BUN 104 H Creatinine 7.34 H* Estim Creat Clear Calc 14.1 Estimated GFR 8 Random Glucose 91 Calcium 7.6 L Phosphorus 9.1 H Magnesium 2.5 Total Bilirubin 0.7 AST 22 ALT 40 Alkaline Phosphatase 54 Total Protein 6.9 Albumin 3.8 Microbiology Microbiology Results: Microbiology 05/24/25 08:05 Blood - Venous Blood Culture - Preliminary No growth after 48 hours. 05/24/25 08:05 Blood - Venous Blood Culture - Preliminary No growth after 48 hours. 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 He received some Versed prior to the UDS We will get CT of the head to rule out any intracranial pathology Close neurological status monitoring in the ICU every hour Cardiac: Malignant hypertension: Improved, poor oral intake difficult to give him oral medications. 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: TTE showing severe LVH, EF down to 40-45% with elevated right-sided pressures on oral hydralazine 75mg TID, labetolol 200mg BID, we will also add prazosin We will withhold Lasix as he is fluid balance net-12 L in the past 3-4 days Troponin leak is secondary to CKD and cardiac stress from malignant hypertension QT 496 Respiratory: Acute respiratory failure due to pulmonary edema Extubated yesterday, currently on nasal cannula oxygen, we will do as needed BiPAP GI: NPO as he is not cleared for swallow Renal: Acute kidney injury on chronic kidney disease possibly secondary to malignant hypertension Has underlying CKD stage 5 possibly secondary to cocaine abuse and uncontrolled hypertension. 2.5 g proteinuria, Anca and complements negative. Rest of the workup is pending No emergent indication for renal replacement therapy, still making urine We will closely monitor I's and O's Avoid nephrotoxic medications Heme: Chronic anemia, closely monitor H&H, transfuse for hemoglobin less than 7 grams/deciliter Endocrine: Blood sugars under control Sliding scale insulin as needed Infectious disease: Negative pancultures No concerns for infection at this point Musculoskeletal: Decubitus ulcer prevention protocol Lines: Peripheral Prophylaxis: Heparin, pantoprazole Quality Stroke Does the patient have a stroke diagnosis?: No VTE Prior VTE?: No VTE Risk Level:: Medical - low VTE Device Contraindication: N/A - Device Ordered VTE Drug Contraindication: N/A - Med Ordered
--- NOTE | 2025-05-26 13:48 | PC.NURSE ---
Addendum entered by Samia Wilson RN 05/26/25 16:44: Craig removed 16:30. Male purewick applied. Patient DTV 20:30. Original Note: Assumed care of patient 0700. Patient alert, awake, eyes open. Moves all extremities, PERRLA, equal hand grasp and feet strength bilaterally. Transitioned from Bipap IPAP 12, EPAP 6, 30% to 1L NC. Tolerating well. 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 Family visited bedside with no change in verbal. MD notified. Head CT without contrast completed. Patient able to nod yes/no, shows comprehension to questions. Denies pain. Full bed bath completed 08:30AM.
[2025-05-27] VITALS (46 sets, daily range): BP systolic 128–172; BP diastolic 75–104; PULSE 90–116; RESP 16–32; TEMP 37.2–39.2; O2SAT 88–99; BMI 26.3
[2025-05-27 05:21] LABS: VBG HCO3 24 mmol/L (22-26); VBG O2 % Saturation 99.0 %
[2025-05-27 05:29] LABS: Venous Blood Gas Refer to POC result
[2025-05-27 06:00] LABS: MANUAL DIFF FLAG NO
[2025-05-27 06:07] LABS: Hematocrit 35.5 % (42.0-52.0); Hemoglobin 10.9 g/dl (14.0-18.0); Imm Gran Abs Auto 0.06 X10*3/uL (0.00-0.03); Imm Gran Pct Auto 0.5 % (0.0-0.4); Lymphocytes Absolute Auto 0.5 X10*3/uL (1.2-4.9); Mean Corpuscular HGB Conc 30.7 g/dl (31.0-36.0); Mean Corpuscular Hemoglobin 23.7 pg (27.0-33.0); Mean Corpuscular Volume 77.2 fL (80.0-98.0); NRBC Abs Auto 0.000 X10*3/uL (0.0-0.012); NRBC Pct Auto 0.0 /100WBC (0.0-0.2); Platelet Count 141 X10*3/uL (160-400); Red Blood Count 4.60 X10*6/uL (4.60-5.80); White Blood Count 12.8 X10*3/uL (4.8-10.8)
[2025-05-27 06:25] LABS: Alanine Aminotransferase 31 U/L (0-40); Albumin Level 3.8 g/dL (3.5-5.0); Alkaline Phosphatase 55 U/L (39-117); Anion Gap 24 (12-20); Aspartate Amino Transferase 21 U/L (5-37); Blood Urea Nitrogen 104 mg/dL (9-16); Calcium 7.6 mg/dL (8.4-10.2); Carbon Dioxide 23 mmol/L (22-29); Chloride 115 mmol/L (96-108); Creatinine Clr Calc Pharmacy 12.2; Estimated Glomerular Filt Rate 9; Magnesium 2.8 mg/dL (1.6-2.6); Potassium 3.8 mmol/L (3.3-5.1); Sodium 158 mmol/L (135-145); Total Protein 7.1 g/dL (6.5-8.0)
--- NOTE | 2025-05-27 06:30 | PC.NURSE ---
Assumed care 1900, pt alert and following commands with no speech, nods to y/n questions. SR on tele, HR 90s. Systolic [id number], on Nicardipine gtt - see NOV. Placed on nocturnal bipap - see bipap assessment. Remains?NPO, pending speech eval. Pt voiding in urinal, incontinent?of stool x2. Hygiene provided, repositioned Q2H.?
--- NOTE | 2025-05-27 11:20 | P.PNCC_ITS ---
Subjective Subjective Date of Service: 05/27/25 Interval History: Remained stable on nasal cannula oxygen since yesterday morning, extubated 48 hours ago. Still aphasic, possibly component of withdrawal On nicardipine for blood pressure control as he did not take his oral pills; now he is cleared by speech and swallow for pureed based diet Critical Care Time (minutes): 35 Physical Exam 2 Vital Signs: Vital Signs: Last Vital Signs Temp 98.9 F 05/27/25 10:59 Pulse 107 H 05/27/25 10:59 Resp 28 H 05/27/25 10:59 BP 158/96 H 05/27/25 10:59 Pulse Ox 90 L 05/27/25 10:59 O2 Del Method Nasal Cannula 05/27/25 10:59 O2 Flow Rate 1 05/27/25 10:59 FiO2 30 05/27/25 05:00 Oxygen Flow Rate 8 05/23/25 05:05 BMI result Body Mass Index 26.3 General: Middle-aged male in mild distress, ill appearing and tired appearing Nutritional Appearance: well nourished and overweight Eyes: appearance normal, both eyes and all related structures; Alignment and Position: alignment normal and position normal Neck: No lymphadenopathy, no thyromegaly Resp: bilateral air entry equal, occasional added sounds present Cardio: Regular rate, regular rhythm; Heart sounds: S1 normal heart sound present and S2 normal heart sound present GI: soft, nontender, no guarding, no hepatosplenomegaly : bladder normal to inspection, bladder normal to palpation, no renal angle tenderness Skin: no rashes or lesions noted and elasticity normal Neuro: Aphasic, but follows some commands, moves all extremities Objective Data Labs 05/27/25 05:06 05/27/25 05:06 Labs: Laboratory Results - last 24 hr 05/27/25 05/27/25 05:06 05:13 WBC 12.8 H RBC 4.60 Hgb 10.9 L Hct 35.5 L MCV 77.2 L MCH 23.7 L MCHC 30.7 L RDW 18.6 H Plt Count 141 L MPV 11.2 Immature Gran % (Auto) 0.5 H Neut % (Auto) 89.2 H Lymph % (Auto) 3.5 L [place] % (Auto) 5.6 Eos % (Auto) 0.7 Baso % (Auto) 0.5 Lymph # (Auto) 0.5 L [place] # (Auto) 0.7 Eos # (Auto) 0.1 Baso # (Auto) 0.1 Abs Immat Gran (auto) 0.06 H Absolute Neuts (auto) 11.4 H Absolute Nucleated RBC 0.000 Nucleated RBC % (auto) 0.0 VBG pH 7.42 VBG pCO2 36 VBG pO2 129 VBG HCO3 24 VBG O2 Saturation 99.0 VBG Base Excess 0.3 Sodium 158 H Potassium 3.8 Chloride 115 H Carbon Dioxide 23 Anion Gap 24 H BUN 104 H Creatinine 7.05 H* Estim Creat Clear Calc 12.2 Estimated GFR 9 Random Glucose 97 Calcium 7.6 L Phosphorus 9.3 H Magnesium 2.8 H Total Bilirubin 0.8 AST 21 ALT 31 Alkaline Phosphatase 55 Total Protein 7.1 Albumin 3.8 Microbiology Microbiology Results: Microbiology 05/24/25 08:05 Blood - Venous Blood Culture - Preliminary No growth after 48 hours. 05/24/25 08:05 Blood - Venous Blood Culture - Preliminary No growth after 48 hours. Progress Note: A&P Assessment and plan (1) Marijuana use: Status: Acute (2) Hypertension: Status: Acute (3) Malignant hypertension: Status: Acute (4) Decompensated heart failure: Status: Acute (5) CINDY (acute kidney injury): Status: Acute (6) Flash pulmonary edema: Status: Acute Plan Neuro: Acute encephalopathy possibly due to toxic metabolic encephalopathy from cocaine use with underlying history of anxiety and psychiatric disorder UDS positive for benzodiazepine, cocaine, marijuana. He received some Versed prior to the UDS Aphasic/dysphasic since extubation, CT of the head negative for any intracranial pathology. We will consult ENT He has a component of drug withdrawal with congested ice and difficulty speech. We will add Xanax 0.25 TID. 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 Reassess everyday to see if he needs Lasix again for pulmonary edema. Troponin leak is secondary to CKD and cardiac stress from malignant hypertension QT 496 Respiratory: Acute respiratory failure due to pulmonary edema Extubated 48 hours ago, currently on nasal cannula oxyge. GI: Speech cleared for NDD1, crushed pureed based diet Renal: Acute kidney injury on chronic kidney disease possibly secondary to malignant hypertension Has underlying CKD stage 5 possibly secondary to cocaine abuse and uncontrolled hypertension. 2.5 g proteinuria, Anca and complements negative. Rest of the workup is pending No emergent indication for renal replacement therapy, still making urine We will closely monitor I's and O's Avoid nephrotoxic medications Hypernatremia: Due to poor oral intake and net fluid balance negative for so many days as he was admitted for pulmonary edema We will start him on D5 water rate 80 mL/hour and closely monitor his sodium Hyperphosphatemia: We will start the patient on calcium acetate 667 t.i.d. with feeds Heme: Chronic anemia, closely monitor H&H, transfuse for hemoglobin less than 7 grams/deciliter Endocrine: Blood sugars under control Sliding scale insulin as needed Infectious disease: Negative pancultures No concerns for infection at this point Musculoskeletal: Decubitus ulcer prevention protocol Lines: Peripheral Prophylaxis: Heparin, pantoprazole Quality Stroke Does the patient have a stroke diagnosis?: No VTE Prior VTE?: No VTE Risk Level:: Medical - low VTE Device Contraindication: N/A - Device Ordered VTE Drug Contraindication: N/A - Med Ordered
[2025-05-27 12:22] LABS: Anion Gap 22 (12-20); Blood Urea Nitrogen 104 mg/dL (9-16); Calcium 7.9 mg/dL (8.4-10.2); Carbon Dioxide 24 mmol/L (22-29); Chloride 116 mmol/L (96-108); Creatinine Clr Calc Pharmacy 12.4; Estimated Glomerular Filt Rate 9; Potassium 3.8 mmol/L (3.3-5.1); Sodium 158 mmol/L (135-145)
[2025-05-27] MEDS: diazePAM 10 MG/2 ML CARTRIDGE 5 MG IVPUSH (13:29)
--- NOTE | 2025-05-27 13:30 | MHC.SL.SWA ---
Speech Pathologist Impression: Moderate post extubation dysphagia Risk of Aspiration Due to: Recent extubation Dysphasia Diet Status: NDD1 with NTL by tsps only, aspiration precautions, slow pacing, small amounts, 1:1 feeding. Stop feeding pt if any cough or wet voicing occurs. Recc meds crushed in puree, due pt to swallow twice when taking meds in puree. MANAGER RESOURCE following. Liquid Consistency and Strategies for Safe Swallow: Liquid Intake Recommendation: Arvin Thick Liquid Intake Strategies: Solid Food Consistency: Dietary Recommendations: Pureed (NDD1) Additional Modifications to Solid Foods: Oral Medication Intake: Crushed with Puree Please contact the pharmacy regarding appropriate crushable or liquid drug formulations that are available whenever modified delivery is recommended. Compensatory Strategies and Precautions to be Taken for Safe Swallow: Supervision While Eating and Drinking for Safe Swallow: Total Assistance (1:1) Foods to Avoid: Swallowing Recommended Treatments: Recommendation for Speech: Inpatient Speech Therapy Comment: Pt able to phonate briefly, absence of wetness but aphonia persists s/p extubation. Anticipate pt voicing will return within a day or two. Pt alert and able to follow cues during clinical bedside swallow exam. OM ROM WNL. Pt coughed with ice chips. Pt tolerated 1/2 tsps of applesauce and 1/2 tsps of NTL without overt s/s of aspiration. MANAGER RESOURCE provided education to pt on reason for evaluation and diet/safety recommendations. Pt in agreement with recommendations in resumption of small amounts of PO intake. MD and RN notified of recommendations: NDD1 with NTL by tsps only, aspiration precautions, slow pacing, small amounts, 1:1 feeding. Stop feeding pt if any cough or wet voicing occurs. Recc meds crushed in puree, due pt to swallow twice when taking meds in puree. MANAGER RESOURCE following. Frequency/Duration: Daily M-F Date Range for Service Req: Timeline to reassess: Venue Coordinator Clinican/Clinical Fellow: No Supervisory Statement: I have reviewed and agree with the student/clinical fellow's documentation: N/A Speech Language Pathologist: Radha Briscoe M.S., CCC-MANAGER RESOURCE
--- NOTE | 2025-05-27 14:17 | MHC.CM.PN ---
Pt extubated and on n/c O2. Pt aphasic - can nod head in response to questions at times. D/C plan will depend on functional ability assessment when pt is medically stable. CM to follow
--- NOTE | 2025-05-27 18:13 | PC.NURSE ---
Assumed care at 0700- pt. minimally verbal but with intermittent moaning. Nods Y/N to questions, follows commands, GRANADOS. SR/ST on tele, HR 90s-110s. Cardene gtt titrated per MAR for target SBP <160. 1L NC. Seen by STEAM TURBINE ASSEMBLER, diet ordered and tolerating well. Pt. incontinent of stool liquid brown stool multiple times this shift. Uses urinal with assistance. Q2 repositioning performed. Family at bedside, updated by this RN and MD. Plan of care ongoing.
[2025-05-27 21:36] LABS: MANUAL DIFF FLAG NO
[2025-05-27 21:39] LABS: Hematocrit 36.5 % (42.0-52.0); Hemoglobin 11.1 g/dl (14.0-18.0); Imm Gran Abs Auto 0.07 X10*3/uL (0.00-0.03); Imm Gran Pct Auto 0.9 % (0.0-0.4); Lymphocytes Absolute Auto 0.3 X10*3/uL (1.2-4.9); Mean Corpuscular HGB Conc 30.4 g/dl (31.0-36.0); Mean Corpuscular Hemoglobin 23.5 pg (27.0-33.0); Mean Corpuscular Volume 77.2 fL (80.0-98.0); NRBC Abs Auto 0.000 X10*3/uL (0.0-0.012); NRBC Pct Auto 0.0 /100WBC (0.0-0.2); Platelet Count 125 X10*3/uL (160-400); Red Blood Count 4.73 X10*6/uL (4.60-5.80); White Blood Count 7.8 X10*3/uL (4.8-10.8)
[2025-05-27 22:00] LABS: Alanine Aminotransferase 30 U/L (0-40); Albumin Level 3.9 g/dL (3.5-5.0); Alkaline Phosphatase 56 U/L (39-117); Anion Gap 20 (12-20); Aspartate Amino Transferase 25 U/L (5-37); Blood Urea Nitrogen 96 mg/dL (9-16); Calcium 7.8 mg/dL (8.4-10.2); Carbon Dioxide 24 mmol/L (22-29); Chloride 115 mmol/L (96-108); Creatinine Clr Calc Pharmacy 13.3; Estimated Glomerular Filt Rate 10; Potassium 3.8 mmol/L (3.3-5.1); Sodium 155 mmol/L (135-145); Total Protein 7.4 g/dL (6.5-8.0)
[2025-05-28] VITALS (41 sets, daily range): BP systolic 129–180; BP diastolic 86–118; PULSE 83–107; RESP 17–27; TEMP 36.4–38.2; O2SAT 89–100; BMI 26.5
[2025-05-28 04:55] LABS: VBG HCO3 27 mmol/L (22-26); VBG O2 % Saturation 93.0 %
[2025-05-28 05:01] LABS: MANUAL DIFF FLAG NO
[2025-05-28 05:02] LABS: Hematocrit 36.2 % (42.0-52.0); Hemoglobin 10.6 g/dl (14.0-18.0); Imm Gran Abs Auto 0.05 X10*3/uL (0.00-0.03); Imm Gran Pct Auto 0.8 % (0.0-0.4); Lymphocytes Absolute Auto 0.4 X10*3/uL (1.2-4.9); Mean Corpuscular HGB Conc 29.3 g/dl (31.0-36.0); Mean Corpuscular Hemoglobin 23.4 pg (27.0-33.0); Mean Corpuscular Volume 79.9 fL (80.0-98.0); NRBC Abs Auto 0.000 X10*3/uL (0.0-0.012); NRBC Pct Auto 0.0 /100WBC (0.0-0.2); Platelet Count 114 X10*3/uL (160-400); Red Blood Count 4.53 X10*6/uL (4.60-5.80); White Blood Count 6.3 X10*3/uL (4.8-10.8)
[2025-05-28 05:10] LABS: Venous Blood Gas Refer to POC result
[2025-05-28 05:24] LABS: Alanine Aminotransferase 28 U/L (0-40); Albumin Level 3.6 g/dL (3.5-5.0); Alkaline Phosphatase 49 U/L (39-117); Anion Gap 19 (12-20); Aspartate Amino Transferase 25 U/L (5-37); Blood Urea Nitrogen 91 mg/dL (9-16); Calcium 7.7 mg/dL (8.4-10.2); Carbon Dioxide 24 mmol/L (22-29); Chloride 117 mmol/L (96-108); Creatinine Clr Calc Pharmacy 13.2; Estimated Glomerular Filt Rate 10; Magnesium 2.6 mg/dL (1.6-2.6); Potassium 3.9 mmol/L (3.3-5.1); Sodium 156 mmol/L (135-145); Total Protein 6.9 g/dL (6.5-8.0)
[2025-05-28 05:26] LABS: Appearance Urine Clear; Glucose Urine UA Negative (Negative); PH 5.5 (5.0-9.0); Specific Gravity - Urine 1.015 (1.005-1.025); UMIC TRIGGER UACC YES
[2025-05-28 05:31] LABS: UACC Culture Trigger YES
--- NOTE | 2025-05-28 07:22 | PC.NURSE ---
Upon initial assessment at approximately 1900- Pt awake, tracks speaker. Speech mostly unclear with occasional moaning. 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 Appears anxious/restless, but denies any anxiety. GRANADOS spontaneously with equal strength.?Pupils 4mm equal/ reactive. ST on tele, HR 100-110s. Nicardipine gtt infusing and titrated per MAR. On 2L NC, SpO2>90%. RR 24-30. Pt denies any SOB. Lungs diminished throughout. TMax 102.5- PA Ike notified, Ice packs applied and PO Tylenol administered per MAR with good effect. Repeat labs, chest XR and UA ordered and obtained. Approximately 0430- Pt awake, tracks speaker. Speech is improving- able to state first name and that he's in the hospital. Able to answer yes/no to questions. Follows commands. GRANADOS. See EMR/ Flowsheet for further details. Bed locked and in lowest position. Telesitter in place for patient safety. Report given to oncoming RN.
--- NOTE | 2025-05-28 08:27 | P.PNCC_ITS ---
Subjective Subjective Date of Service: 05/28/25 Critical Care Time (minutes): 60 Physical Exam 2 Vital Signs: Vital Signs: Last Vital Signs Temp 99.2 F 05/28/25 06:30 Pulse 96 05/28/25 08:19 Resp 21 H 05/28/25 08:04 BP 168/101 H 05/28/25 08:19 Pulse Ox 93 05/28/25 07:00 O2 Del Method Nasal Cannula 05/28/25 07:00 O2 Flow Rate 2 05/28/25 07:00 FiO2 30 05/28/25 04:00 Oxygen Flow Rate 8 05/23/25 05:05 BMI result Body Mass Index 26.5 Const: General: cooperative, healthy appearing, comfortable, no acute distress, well developed, alert, awake and Physically active O rientation/consciousness: patient oriented x3 HEENT: Head: Yes normal to inspection, Yes normocephalic and Yes atraumatic Eyes: General: appearance normal, both eyes and all related structures Neck: Neck: Yes normal visual inspection, Yes full ROM, Yes no meningeal signs, Yes trachea midline and Yes supple Chest: Chest palpation & inspection: normal inspection of the chest Resp: Other: no appreciable overt rales, rhonchi, wheezing Effort & Inspection: normal respiratory effort Cardio: Rate: regular rate Rhythm: regular rhythm GI: Inspection: Yes normal to inspection, No Abdominal wall edema and No distended Palpation (GI): Soft to palpation, not firm, nontender, no guarding and not rigid Skin: General skin exam: no rashes or lesions noted Neuro: Other: appreciable expressive aphasia General: patient oriented x3, tone normal, moves all extremities and no meningeal signs Extrem: Other: appreciable 1+ pitting edema to bilateral shins General: Yes normal to inspection, Yes full ROM and Yes capillary refill normal Psych: Appearance: grossly normal Objective Data Labs 05/28/25 04:51 05/28/25 04:51 Labs: Laboratory Results - last 24 hr 05/27/25 05/27/25 05/27/25 11:57 21:07 21:08 WBC 7.8 RBC 4.73 Hgb 11.1 L Hct 36.5 L MCV 77.2 L MCH 23.5 L MCHC 30.4 L RDW 18.4 H Plt Count 125 L MPV 10.6 Immature Gran % (Auto) 0.9 H Neut % (Auto) 87.4 H Lymph % (Auto) 3.6 L [place] % (Auto) 5.8 Eos % (Auto) 1.8 Baso % (Auto) 0.5 Lymph # (Auto) 0.3 L [place] # (Auto) 0.5 Eos # (Auto) 0.1 Baso # (Auto) 0.0 Abs Immat Gran (auto) 0.07 H Absolute Neuts (auto) 6.8 Absolute Nucleated RBC 0.000 Nucleated RBC % (auto) 0.0 VBG pH VBG pCO2 VBG pO2 VBG HCO3 VBG O2 Saturation VBG Base Excess Sodium 158 H 155 H Potassium 3.8 3.8 Chloride 116 H 115 H Carbon Dioxide 24 24 Anion Gap 22 H 20 BUN 104 H 96 H Creatinine 6.93 H* 6.47 H* Estim Creat Clear Calc 12.4 13.3 Estimated GFR 9 10 Random Glucose 130 H 128 H Lactic Acid 0.6 Calcium 7.9 L 7.8 L Phosphorus Magnesium Total Bilirubin 0.7 AST 25 ALT 30 Alkaline Phosphatase 56 Total Protein 7.4 Albumin 3.9 Urine Color Urine Appearance Urine pH Ur Specific [place] Urine Protein Urine Glucose (UA) Urine Ketones Urine Blood Urine Nitrite Ur Leukocyte Esterase Urine RBC Urine WBC Ur Squamous Epith Cells Urine Bacteria Hyaline Casts 05/28/25 05/28/25 04:31 04:51 WBC 6.3 RBC 4.53 L Hgb 10.6 L Hct 36.2 L MCV 79.9 L MCH 23.4 L MCHC 29.3 L RDW 18.2 H Plt Count 114 L MPV 10.2 Immature Gran % (Auto) 0.8 H Neut % (Auto) 82.9 H Lymph % (Auto) 6.5 L [place] % (Auto) 6.5 Eos % (Auto) 2.5 Baso % (Auto) 0.8 Lymph # (Auto) 0.4 L [place] # (Auto) 0.4 Eos # (Auto) 0.2 Baso # (Auto) 0.1 Abs Immat Gran (auto) 0.05 H Absolute Neuts (auto) 5.3 Absolute Nucleated RBC 0.000 Nucleated RBC % (auto) 0.0 VBG pH 7.49 H VBG pCO2 36 VBG pO2 71 VBG HCO3 27 H VBG O2 Saturation 93.0 VBG Base Excess 4.7 Sodium 156 H Potassium 3.9 Chloride 117 H Carbon Dioxide 24 Anion Gap 19 BUN 91 H Creatinine 6.50 H* Estim Creat Clear Calc 13.2 Estimated GFR 10 Random Glucose 116 H Lactic Acid Calcium 7.7 L Phosphorus 6.2 H Magnesium 2.6 Total Bilirubin 0.6 AST 25 ALT 28 Alkaline Phosphatase 49 Total Protein 6.9 Albumin 3.6 Urine Color Yellow Urine Appearance Clear Urine pH 5.5 Ur Specific [place] 1.015 Urine Protein 100 (2+) H Urine Glucose (UA) Negative Urine Ketones Negative Urine Blood Negative Urine Nitrite Negative Ur Leukocyte Esterase Small (1+) H Urine RBC 0-2 Urine WBC 21-50 H Ur Squamous Epith Cells 0-2 Urine Bacteria None Seen Hyaline Casts 0-2 Microbiology Microbiology Results: Microbiology 05/24/25 08:05 Blood - Venous Blood Culture - Preliminary No growth after 48 hours. 05/24/25 08:05 Blood - Venous Blood Culture - Preliminary No growth after 48 hours. Progress Note: A&P Assessment and plan (1) Flash pulmonary edema: Status: Acute (2) Hypertension: Status: Acute Plan Patient is a 39 Y M w/ hypertension, hyperlipidemia, polysubstance misuse including cocaine, presenting to ED on 05/23 w/ dyspnea, found to have flash pulmonary edema, placed on non-invasive; ICU course c/b agitation, inability to tolerate non-invasive, subsequently intubated 05/23, extubated N: aphasia, follow-up MRI, consider d/c alprazolam CV: hypertension, c/b flash pulmonary edema, improved;?nicardipine gtt, wean as tolerated, cross-titrate w/ hydralazine, labetalol, prazosin R: flash pulmonary edema, resolved GI: pureed diet : acute on chronic renal insufficiency, to monitor renal indices H: no acute issues ID: no overt stigmata of infection, to monitor E: to monitor hypo-/hyper-glycemia S: daily updates given to spouse Quality Stroke Does the patient have a stroke diagnosis?: No VTE Prior VTE?: No VTE Risk Level:: Medical - moderate - high VTE Device Contraindication: N/A - Device Ordered VTE Drug Contraindication: N/A - Med Ordered
--- NOTE | 2025-05-28 10:52 | PC.NURSE ---
patient status stable, able to articulate more clearly today, still with difficult word finding and stuttering garbled speech, but forming partial statements and able to make needs known. improvement in feeding, advanced to thin liquids and able to feed self today, no longer 1:1 feed, PER PARKING ENFORCER this morning MRI of head scheduled today at 12:30 patient has no complaints or questions
--- NOTE | 2025-05-28 11:26 | MHC.SL.SWA ---
Speech Pathologist Impression: Mild dysphagia d/t weakness Risk of Aspiration Due to: Recent extubation Generalized weakness Dysphasia Diet Status: [facility] NDD1 (purees), upgrade to THIN liquids, no straws, aspiration precautions, meds in puree, MEDICAL FRONT DESK SPECIALIST to re-assess daily for diet upgrade Liquid Consistency and Strategies for Safe Swallow: Liquid Intake Recommendation: Thin Liquid Intake Strategies: Small Sips No Straws Solid Food Consistency: Dietary Recommendations: Pureed (NDD1) Additional Modifications to Solid Foods: Oral Medication Intake: Crushed with Puree Please contact the pharmacy regarding appropriate crushable or liquid drug formulations that are available whenever modified delivery is recommended. Compensatory Strategies and Precautions to be Taken for Safe Swallow: Sitting Upright (90 deg) No Straw Small Bites and Sips Rate of Ingestion Change Supervision While Eating and Drinking for Safe Swallow: Intermittent Supervision Foods to Avoid: Swallowing Recommended Treatments: Compens. Strategy Educat. Recommendation for Speech: Inpatient Speech Therapy Comment: Pt seen for dysphagia treatment. Pt tolerating purees and NTL by straw sips, pt requesting water. Voicing has improved, aphonia resolved. Vocal volume WFL to gain attention of RNs in requesting water. Trials of water without thickener presented. Pt took consecutive sips of water with efficient oropharyngeal coordination. No overt s/s of aspiration occurred. Pt elicited slight burp after consecutive sips, no changes to voicing. Frequency/Duration: Daily M-F Date Range for Service Req: Timeline to reassess: Warehouse Foreman Clinican/Clinical Fellow: No Supervisory Statement: I have reviewed and agree with the student/clinical fellow's documentation: N/A Speech Language Pathologist: Radha Briscoe M.S., CCC-MEDICAL FRONT DESK SPECIALIST
--- NOTE | 2025-05-28 15:17 | MHC.CM.PN ---
EMR REVIEWED. PT WAS EXTUBATED 05/27, ABLE TO MAKE SOME NEEDS KNOWN. SLOW IMPROVEMENT. CM WILL CONTINUE TO FOLLOW FOR PLAN.
[2025-05-28 20:33] LABS: Anion Gap 16 (12-20); Blood Urea Nitrogen 82 mg/dL (9-16); Calcium 7.7 mg/dL (8.4-10.2); Carbon Dioxide 26 mmol/L (22-29); Chloride 111 mmol/L (96-108); Creatinine Clr Calc Pharmacy 14.7; Estimated Glomerular Filt Rate 11; Magnesium 2.4 mg/dL (1.6-2.6); Potassium 4.0 mmol/L (3.3-5.1); Sodium 149 mmol/L (135-145)
[2025-05-28 21:38] LABS: Albumin Level 3.9 g/dL (3.5-5.0)
[2025-05-28] MEDS: Calcium Gluconate/NaCl,Iso-Osm 2 GM/100 ML PLAST..BAG IV (21:48)
[2025-05-29] VITALS (45 sets, daily range): BP systolic 139–166; BP diastolic 86–107; PULSE 82–98; RESP 17–28; TEMP 36.8–37.6; O2SAT 88–99; BMI 27.5
--- NOTE | 2025-05-29 04:20 | PC.NURSE ---
Assumed of care of patient at 1900. Patient alert and oriented to self and place. Patient has trouble finding words but able to make needs known and able to follow directions. Patient on 1L NC and placed on bipap approximately at 00:00. Does not appear to be in now respiratory distress. Patient SR on tele. Patient on nicardepine drip to maintain SBP <160.
[2025-05-29 05:34] LABS: VBG HCO3 26 mmol/L (22-26); VBG O2 % Saturation 95.0 %
[2025-05-29 05:41] LABS: MANUAL DIFF FLAG NO
[2025-05-29 05:47] LABS: Hematocrit 36.6 % (42.0-52.0); Hemoglobin 10.7 g/dl (14.0-18.0); Imm Gran Abs Auto 0.06 X10*3/uL (0.00-0.03); Imm Gran Pct Auto 1.0 % (0.0-0.4); Lymphocytes Absolute Auto 0.6 X10*3/uL (1.2-4.9); Mean Corpuscular HGB Conc 29.2 g/dl (31.0-36.0); Mean Corpuscular Hemoglobin 23.3 pg (27.0-33.0); Mean Corpuscular Volume 79.6 fL (80.0-98.0); NRBC Abs Auto 0.000 X10*3/uL (0.0-0.012); NRBC Pct Auto 0.0 /100WBC (0.0-0.2); Platelet Count 112 X10*3/uL (160-400); Red Blood Count 4.60 X10*6/uL (4.60-5.80); White Blood Count 6.2 X10*3/uL (4.8-10.8)
[2025-05-29 06:06] LABS: Albumin Level 3.4 g/dL (3.5-5.0); Anion Gap 15 (12-20); Blood Urea Nitrogen 81 mg/dL (9-16); Calcium 7.9 mg/dL (8.4-10.2); Carbon Dioxide 26 mmol/L (22-29); Chloride 111 mmol/L (96-108); Creatinine Clr Calc Pharmacy 15.1; Estimated Glomerular Filt Rate 11; Magnesium 2.3 mg/dL (1.6-2.6); Potassium 3.9 mmol/L (3.3-5.1); Sodium 148 mmol/L (135-145)
--- NOTE | 2025-05-29 08:21 | P.PNCC_ITS ---
Subjective Subjective Date of Service: 05/29/25 Interval History: no significant overnight events Critical Care Time (minutes): 60 Physical Exam 2 Vital Signs: Vital Signs: Last Vital Signs Temp 98.6 F 05/29/25 08:00 Pulse 94 05/29/25 08:00 Resp 20 05/29/25 08:00 BP 158/90 H 05/29/25 08:00 Pulse Ox 95 05/29/25 08:00 O2 Del Method Nasal Cannula 05/29/25 08:00 O2 Flow Rate 2 05/29/25 08:00 FiO2 30 05/29/25 04:00 Oxygen Flow Rate 8 05/23/25 05:05 BMI result Body Mass Index 27.5 Const: General: cooperative, healthy appearing, comfortable, no acute distress, well developed, alert, awake and Physically active O rientation/consciousness: patient oriented x3 HEENT: Head: Yes normal to inspection, Yes normocephalic and Yes atraumatic Eyes: General: appearance normal, both eyes and all related structures Neck: Neck: Yes normal visual inspection, Yes full ROM, Yes no meningeal signs, Yes trachea midline and Yes supple Chest: Chest palpation & inspection: normal inspection of the chest Resp: Other: no appreciable rales, rhonchi, wheezing Effort & Inspection: normal respiratory effort Cardio: Rate: regular rate Rhythm: regular rhythm GI: Inspection: Yes normal to inspection, No Abdominal wall edema and No distended Palpation (GI): Soft to palpation, not firm, nontender, no guarding and not rigid Skin: General skin exam: no rashes or lesions noted Neuro: Other: interval improvement aphasia General: patient oriented x3, tone normal, moves all extremities, no meningeal signs and no focal motor deficits Extrem: Other: appreciable trace pitting edema to bilateral shins General: Yes normal to inspection, Yes full ROM and Yes capillary refill normal Psych: Appearance: grossly normal Objective Data Labs 05/29/25 05:34 05/29/25 05:34 Labs: Laboratory Results - last 24 hr 05/28/25 05/29/25 05/29/25 20:02 05:31 05:34 WBC 6.2 RBC 4.60 Hgb 10.7 L Hct 36.6 L MCV 79.6 L MCH 23.3 L MCHC 29.2 L RDW 17.6 H Plt Count 112 L MPV 10.0 Immature Gran % (Auto) 1.0 H Neut % (Auto) 71.9 Lymph % (Auto) 9.9 L [place] % (Auto) 8.9 Eos % (Auto) 7.5 H Baso % (Auto) 0.8 Lymph # (Auto) 0.6 L [place] # (Auto) 0.6 Eos # (Auto) 0.5 H Baso # (Auto) 0.1 Abs Immat Gran (auto) 0.06 H Absolute Neuts (auto) 4.4 Absolute Nucleated RBC 0.000 Nucleated RBC % (auto) 0.0 VBG pH 7.53 H VBG pCO2 30 VBG pO2 70 VBG HCO3 26 VBG O2 Saturation 95.0 VBG Base Excess 3.9 Sodium 149 H 148 H Potassium 4.0 3.9 Chloride 111 H 111 H Carbon Dioxide 26 26 Anion Gap 16 15 BUN 82 H 81 H Creatinine 5.85 H* 5.69 H* Estim Creat Clear Calc 14.7 15.1 Estimated GFR 11 11 Random Glucose 117 H 101 Calcium 7.7 L 7.9 L Phosphorus 4.1 4.8 H Magnesium 2.4 2.3 Albumin 3.9 3.4 L Microbiology Microbiology Results: Microbiology 05/27/25 21:08 Blood - Venous Blood Culture - Preliminary No growth after 24 hours. 05/27/25 21:07 Blood - Venous Blood Culture - Preliminary No growth after 24 hours. 05/24/25 08:05 Blood - Venous Blood Culture - Preliminary No growth after 48 hours. 05/24/25 08:05 Blood - Venous Blood Culture - Preliminary No growth after 48 hours. Progress Note: A&P Assessment and plan (1) Flash pulmonary edema: Status: Acute (2) Hypertension: Status: Acute Plan Patient is a 39 Y M w/ hypertension, hyperlipidemia, polysubstance misuse including cocaine, presenting to ED on 05/23 w/ dyspnea, found to have flash pulmonary edema, placed on non-invasive; ICU course c/b agitation, inability to tolerate non-invasive, subsequently intubated 05/23, extubated N: aphasia, follow-up MRI, consider d/c alprazolam CV: hypertension, c/b flash pulmonary edema, improved;?nicardipine gtt, wean as tolerated, cross-titrate w/ hydralazine, labetalol, prazosin R: flash pulmonary edema, resolved GI: pureed diet : acute on chronic renal insufficiency, to monitor renal indices H: no acute issues ID: no overt stigmata of infection, to monitor E: to monitor hypo-/hyper-glycemia S: daily updates given to spouse Quality Stroke Does the patient have a stroke diagnosis?: No VTE Prior VTE?: No VTE Risk Level:: Medical - moderate - high VTE Device Contraindication: N/A - Device Ordered VTE Drug Contraindication: N/A - Med Ordered
[2025-05-29 08:53] LABS: Venous Blood Gas Refer to POC result
[2025-05-29] MEDS: Albumin Human 25 % 100 ML IV ×2 (09:07→13:09)
[2025-05-29] MEDS: Calcium Gluconate/NaCl,Iso-Osm 1 GM/50 ML PLAST..BAG IV (09:15)
[2025-05-29 11:05] LABS: ABG HCO3 30 mmol/L (22-26); ABG O2 % Saturation 100.0 %
[2025-05-29] MEDS: Bumetanide 1 MG/4 ML VIAL IVPUSH ×2 (13:10→17:36)
--- NOTE | 2025-05-29 13:50 | PC.NURSE ---
Patient diet advanced today. see new diet order. Patient became obtunded with no respiratory distress this afternoon at approx 11:30 -ABG obtained -Placed on BIPAP Improvements to mentation at approx 12:30 PT/OT unable to perform activities with patient due to change in LOC. May return later today to try again. MD updated patient and family at the bedside at approx 1330. Patient awake, alert+orientedx4, and cooperative with care at this time.
[2025-05-29 13:54] LABS: ABG Refer to POC result
--- NOTE | 2025-05-29 14:05 | MHC.CM.PN ---
Pt less aphasic: head imaging not showing anoxic injury: pt may need post acute placement. Will await formal functional assessment evals before initiating referrals. CM to follow
--- NOTE | 2025-05-29 14:15 | PM.NEUROCN ---
History of Present Illness Data of Consult Service Date: 05/29/25 Primary Care Provider: Charlee Thurman PA-C HPI Reason for consult: ? aphasia This is a 39-year-old male with past medical history of chronic cocaine use, last use 3 days prior to admission, hypertension, hyperlipidemia, obesity, TRESSA on CPAP, tobacco dependence, marijuana use daily, constipation, status post ventral hernia repair with current unreducible hernia, bilateral inguinal hernia presented to the ED with acute shortness of breath associated with uncontrolled hypertension with blood pressure 228/154 with a map of 178mmHg. He was placed on BiPAP support for flash pulmonary edema, started on nitroglycerin drip and MICU was consulted for admission. I was asked to evaluate him because of possible aphasia. MRI shows no acute stroke. 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 His speech is now back to normal as confirmed by his family at bedside. [facility] Past Medical History Medical History Hyperlipidemia Hypertension Tobacco use Surgical History Surgical History H/O inguinal hernia repair H/O ventral hernia repair Social History Social History Household Members: Unknown / Unable to assess Household Members Other:: unknown if any other household members Housing: Unknown / Unable to assess Do you presently have visiting nurse or other home services: No Patient Tobacco Use Status: Current everyday Tobacco user Tobacco use type: Cigarette Smoked in Last 30 Days: Yes e-Cigarette/Vaping Use: Never Used Second Hand Smoke Exposure: No Use of substances other than those prescribed or required for medical reasons: Yes Substance Use Type: Crack/Cocaine Substance Use Frequency: Weekly Currently Displaying Signs/Symptoms of Drug Intoxication Withdrawal: No Advance Directives: No service: No Sexual orientation: Straight/Heterosexual Meds Allergies Allergy/AdvReac Type Severity Reaction Status Date / Time No Known Allergies Allergy Verified 05/23/25 05:08 Active Medications: Current Medications Alprazolam (Alprazolam 0.25 Mg Tablet) 0.25 mg PO BID [facility] Last Admin: 05/29/25 09:05 Dose: 0.25 mg Amlodipine Besylate (Amlodipine Besylate 10 Mg Tablet) 10 mg PO DAILY [facility]; Protocol Last Admin: 05/29/25 09:06 Dose: 10 mg Bumetanide (Bumetanide 1 Mg/4 Ml Vial) 1 mg IVPUSH BID@0900,1700 [facility]; Protocol Calcium Acetate (Calcium Acetate 667 Mg Capsule) 667 mg PO TIDWM [facility] Last Admin: 05/29/25 13:10 Dose: Not Given Heparin Sodium (Porcine) (Heparin Sodium,Porcine 5,000 Unit/Ml Vial) 5,000 unit SUBCUT Q8H [facility] Last Admin: 05/29/25 09:19 Dose: 5,000 unit Hydralazine HCl (Hydralazine Hcl 25 Mg Tablet) 75 mg PO TID [facility]; Protocol Last Admin: 05/29/25 09:06 Dose: 75 mg Nicardipine HCl 25 mg/ Sodium (Chloride) 250 mls @ 0 mls/hr IVCONT .Q0M [facility]; Protocol Last Titration: 05/29/25 13:16 Dose: 2.5 mg/hr, 25 mls/hr Piperacillin Sod/Tazobactam (Sod 2.25 gm/ Sodium Chloride) 50 mls @ 100 mls/hr IV Q6H [facility] Last Admin: 05/29/25 13:10 Dose: 100 mls/hr Acetaminophen (Ofirmev) 1,000 mg in 100 mls @ 400 mls/hr IV Q6H PRN PRN Reason: Fever Albumin Human (Kedbumin 25 %) 100 mls @ 100 mls/hr IV Q6H [facility] Stop: 05/29/25 14:59 Last Admin: 05/29/25 13:09 Dose: 100 mls/hr Labetalol HCl (Labetalol Hcl 200 Mg Tablet) 200 mg PO TID [facility]; Protocol Last Admin: 05/29/25 09:06 Dose: 200 mg Prazosin HCl (Prazosin Hcl 1 Mg Capsule) 2 mg PO BEDTIME [facility]; Protocol Last Admin: 05/28/25 20:21 Dose: 2 mg Home Medications ?Medication ?Instructions ?Recorded ?Confirmed ?Last Taken ?Type bumetanide 1 mg tablet 1 mg PO BID 01/27/25 05/23/25 Unknown History clonidine HCl 0.1 mg tablet 0.1 mg PO TID 01/27/25 01/27/25 Unknown History hydralazine 50 mg tablet 50 mg PO BID 01/27/25 05/23/25 Unknown History labetalol 200 mg tablet 200 mg PO TID 01/27/25 01/27/25 Unknown History prazosin 2 mg capsule 2 mg PO BEDTIME 01/27/25 05/23/25 Unknown History spironolactone 50 mg tablet 50 mg PO DAILY 01/27/25 01/27/25 Unknown History Physical Exam Vital Signs: Vital Signs: Last Vital Signs Temp 98.5 F 05/29/25 12:00 Pulse 84 05/29/25 14:00 Resp 25 H 05/29/25 14:00 BP 147/93 H 05/29/25 14:00 Pulse Ox 95 05/29/25 14:00 O2 Del Method Nasal Cannula 05/29/25 14:00 O2 Flow Rate 2 05/29/25 14:00 FiO2 30 05/29/25 11:05 Oxygen Flow Rate 8 05/23/25 05:05 BMI result Body Mass Index 27.5 Neuro: Other: He is alert and oriented with normal speech no dysphagia or dysarthria. His swallowing is normal. Tongue and palatal movements are normal. Cranial nerves 2-12 are normal. Exam is nonfocal Results Labs 05/29/25 05:34 05/29/25 05:34 Labs: Short CBC 05/29/25 Range/Units 05:34 WBC 6.2 (4.8-10.8) X10*3/uL Hgb 10.7 L (14.0-18.0) g/dl Hct 36.6 L (42.0-52.0) % Plt Count 112 L (160-400) X10*3/uL BMP 05/28/25 05/29/25 20:02 05:34 Sodium 149 H 148 H Potassium 4.0 3.9 Chloride 111 H 111 H Carbon Dioxide 26 26 BUN 82 H 81 H Creatinine 5.85 H* 5.69 H* Calcium 7.7 L 7.9 L Liver Function 05/28/25 05/29/25 Range/Units 20:02 05:34 Albumin 3.9 3.4 L (3.5-5.0) g/dL Microbiology Microbiology Results: Microbiology 05/24/25 08:05 Blood - Venous Blood Culture - Final No growth after 5 days. 05/24/25 08:05 Blood - Venous Blood Culture - Final No growth after 5 days. 05/28/25 Unknown Urine clean catch - Clean Catch Midstream Urine Culture - Preliminary Staphylococcus species 05/27/25 21:08 Blood - Venous Blood Culture - Preliminary No growth after 24 hours. 05/27/25 21:07 Blood - Venous Blood Culture - Preliminary No growth after 24 hours. Assessment and Plan (1) Expressive speech disorder: Status: Acute Plan His speech disorder appears to have been transient. It is unclear if it was and expressive disorder or more dysarthria. Whether it was related to his medications is unclear. There is no evidence of any neurological deficits on clinical examination or on MRI. There is a remote old lacunar infarct in the left basal ganglia. Recommendation: drug rehab and blood pressure control Procedures Date of Service Date of Service: 05/29/25
--- NOTE | 2025-05-29 17:05 | MHC.SL.SWA ---
Speech Pathologist Impression: Risk of Aspiration Due to: Dysphasia Diet Status: Recommend upgrade to softer, precut pieces, Chopped/Advanced (NDD3) continue on thin liquids, pills whole in puree or with liquid. Liquid Consistency and Strategies for Safe Swallow: Liquid Intake Recommendation: Thin Liquid Intake Strategies: Small Sips No Straws Solid Food Consistency: Dietary Recommendations: Chopped/Advanced (NDD3) Additional Modifications to Solid Foods: Oral Medication Intake: Whole with Puree Please contact the pharmacy regarding appropriate crushable or liquid drug formulations that are available whenever modified delivery is recommended. Compensatory Strategies and Precautions to be Taken for Safe Swallow: Sitting Upright (90 deg) Liquids from Cup Small Bites and Sips Alternate Liquids/Solids Supervision While Eating and Drinking for Safe Swallow: Intermittent Supervision Foods to Avoid: Swallowing Recommended Treatments: Compens. Strategy Educat. Recommendation for Speech: Inpatient Speech Therapy Comment: Patient seen for re-evaluation for possible upgrade of diet. Patient was awake and alert and pleasant and cooperative. Patient speaks both Macedonian and [place] and was watching a telenovela on TV. Patient given cup of water, which he held and took a few sips independently with good control and timely swallow with no clinical signs of aspiration. Patient was given pudding with crushed pieces of gary cracker which he chewed with slow mastication and produced a well coordinated swallow. On a piece of cracker dipped in some pudding, patient also produced a slow rotary chew, followed by a timely swallow with complete oral clearance. Patient was given a piece of plain cracker, which he bit a portion off, then produced a slow rotary chew, timely swallow, mild oral residual which he cleared with some sips of water. Given slow mastication, recommend upgrade to softer, precut pieces, Chopped/Advanced (NDD3) continue on thin liquids, pills whole in puree or with liquid. [employer] JOINTER RETURNER will follow for toleration, likely advancement to regular solids when ready. MD/RN advised, MD upgraded diet in expanse. Frequency/Duration: Daily M-F Date Range for Service Req: Timeline to reassess: Scrap Carrier Clinican/Clinical Fellow: No Supervisory Statement: I have reviewed and agree with the student/clinical fellow's documentation: N/A Speech Language Pathologist: Marielle Villavicencio M.A., [facility]-[employer] JOINTER RETURNER
[2025-05-29 18:20] LABS: Anion Gap 15 (12-20); Blood Urea Nitrogen 77 mg/dL (9-16); Calcium 7.6 mg/dL (8.4-10.2); Carbon Dioxide 26 mmol/L (22-29); Chloride 109 mmol/L (96-108); Creatinine Clr Calc Pharmacy 16.8; Estimated Glomerular Filt Rate 11; Magnesium 2.2 mg/dL (1.6-2.6); Potassium 4.0 mmol/L (3.3-5.1); Sodium 146 mmol/L (135-145)
[2025-05-29 22:14] LABS: Anti Nuclear Antibody Pattern Nuclear, Speckled; Anti Nuclear Antibody Screen POSITIVE (NEGATIVE); Anti Nuclear Antibody Titer 1:40 titer
--- NOTE | 2025-05-29 22:47 | PC.NURSE ---
Assumed care of pt at 1900. Pt has been alert and oriented although vague to situation. He has been pleasant and cooperative. No acute resp distress. O2 on at 2l via NC until bipap applied at 2200 for the night. Pt cooperative with bipap. Cardene was d/c'd just prior to 1900 and BP has been within range. 145/99, 146/92. Monitor: NSR, rate 80's. Voiding in urinal without difficulty. Taking fluids well.
[2025-05-30] VITALS (27 sets, daily range): BP systolic 132–182; BP diastolic 71–122; PULSE 73–94; RESP 15–22; TEMP 36.2–36.9; O2SAT 90–99; BMI 27.5
--- NOTE | 2025-05-30 | ECG_ITS ---
Test Reason : QTc Monitoring Blood Pressure : */* mmHG Vent. Rate : 81 BPM Atrial Rate : 81 BPM P-R Int : 152 ms QRS Dur : 98 ms QT Int : 424 ms P-R-T Axes : 27 24 18 degrees QTcB Int : 492 ms Normal sinus rhythm Left atrial enlargement Left ventricular hypertrophy ( [place] product ) Nonspecific T wave abnormality Prolonged QT Abnormal ECG When compared with ECG of 23-May-2025 08:36, Nonspecific T wave abnormality now evident in Inferior leads T wave inversion more evident in Lateral leads Referred By: Harriett Harding Electronically Signed By: RUPALI IBARRA
--- NOTE | 2025-05-30 05:51 | PM.EVENT ---
Documented by User: Devika Linn NP 05/30/25 05:54 Event Note Date of Service: 05/30/25 Event Note: One set of blood cultures reported positive at 55 hours for GPC.? This is likely a contaminant.? The patient is afebrile, WBC is normal and going down, lactic acid was normal.? No clinical evidence of sepsis or bacteremia. I've ordered a repeat set of BCs and lactate.? Time Spent With Patient Time: Total time managing care of this patient today ____ minutes. Documented by User: Harriett Harding MD 05/30/25 06:27 Event Note Date of Service: 05/30/25
[2025-05-30 06:24] LABS: MANUAL DIFF FLAG NO
[2025-05-30 06:26] LABS: Hematocrit 35.7 % (42.0-52.0); Hemoglobin 10.5 g/dl (14.0-18.0); Imm Gran Abs Auto 0.06 X10*3/uL (0.00-0.03); Imm Gran Pct Auto 0.9 % (0.0-0.4); Lymphocytes Absolute Auto 0.8 X10*3/uL (1.2-4.9); Mean Corpuscular HGB Conc 29.4 g/dl (31.0-36.0); Mean Corpuscular Hemoglobin 23.5 pg (27.0-33.0); Mean Corpuscular Volume 79.9 fL (80.0-98.0); NRBC Abs Auto 0.000 X10*3/uL (0.0-0.012); NRBC Pct Auto 0.0 /100WBC (0.0-0.2); Platelet Count 118 X10*3/uL (160-400); Red Blood Count 4.47 X10*6/uL (4.60-5.80); White Blood Count 6.3 X10*3/uL (4.8-10.8)
[2025-05-30 06:47] LABS: Anion Gap 14 (12-20); Blood Urea Nitrogen 79 mg/dL (9-16); Calcium 7.7 mg/dL (8.4-10.2); Carbon Dioxide 23 mmol/L (22-29); Chloride 109 mmol/L (96-108); Creatinine Clr Calc Pharmacy 16.9; Estimated Glomerular Filt Rate 12; Magnesium 2.2 mg/dL (1.6-2.6); Potassium 3.9 mmol/L (3.3-5.1); Sodium 142 mmol/L (135-145)
--- NOTE | 2025-05-30 08:39 | P.PNCC_ITS ---
Subjective Subjective Date of Service: 05/30/25 Interval History: no significant overnight events; SBP <160s off nicardipine gtt Critical Care Time (minutes): 0 Physical Exam 2 Vital Signs: Vital Signs: Last Vital Signs Temp 97.1 F 05/30/25 08:00 Pulse 76 05/30/25 08:00 Resp 18 05/30/25 08:00 BP 169/102 H 05/30/25 08:00 Pulse Ox 90 L 05/30/25 08:00 O2 Del Method Room Air 05/30/25 08:00 O2 Flow Rate 1 05/30/25 07:00 FiO2 30 05/30/25 05:00 Oxygen Flow Rate 8 05/23/25 05:05 BMI result Body Mass Index 27.5 Const: General: cooperative, healthy appearing, comfortable, no acute distress, well developed, alert, awake and Physically active O rientation/consciousness: patient oriented x3 HEENT: Head: Yes normal to inspection, Yes normocephalic and Yes atraumatic Eyes: General: appearance normal, both eyes and all related structures Neck: Neck: Yes normal visual inspection, Yes full ROM, Yes trachea midline and Yes supple Chest: Chest palpation & inspection: normal inspection of the chest Resp: Effort & Inspection: normal respiratory effort Auscultation: no crackles, no rales, no rhonchi and no wheezes Cardio: Rate: regular rate Rhythm: regular rhythm GI: Inspection: Yes normal to inspection, No Abdominal wall edema and No distended Palpation (GI): Soft to palpation, not firm, nontender, no guarding and not rigid Skin: General skin exam: no rashes or lesions noted Neuro: Other: aphasia, though significantly improved General: patient oriented x3, tone normal and moves all extremities Extrem: Other: appreciable 1+ pitting edema to bilateral shins General: Yes normal to inspection, Yes full ROM and Yes capillary refill normal Psych: Appearance: grossly normal Objective Data Labs 05/30/25 06:12 05/30/25 06:12 Labs: Laboratory Results - last 24 hr 05/23/25 05/29/25 05/29/25 15:15 11:01 17:54 WBC RBC Hgb Hct MCV MCH MCHC RDW Plt Count MPV Immature Gran % (Auto) Neut % (Auto) Lymph % (Auto) [place] % (Auto) Eos % (Auto) Baso % (Auto) Lymph # (Auto) [place] # (Auto) Eos # (Auto) Baso # (Auto) Abs Immat Gran (auto) Absolute Neuts (auto) Absolute Nucleated RBC Nucleated RBC % (auto) O2 Saturation 100.0 ABG pH at Pt Temp 7.41 ABG pCO2 at Pt Temp 47 H ABG pO2 at Pt Temp 114 H ABG HCO3 30 H ABG Base Excess (Actual) 5.2 Sodium 146 H Potassium 4.0 Chloride 109 H Carbon Dioxide 26 Anion Gap 15 BUN 77 H Creatinine 5.58 H* Estim Creat Clear Calc 16.8 Estimated GFR 11 Random Glucose 123 H Lactic Acid Calcium 7.6 L Phosphorus 4.5 Magnesium 2.2 CLIVE Screen POSITIVE A CLIVE Titer 1:40 H CLIVE Pattern Nuclear, Speckled A 05/30/25 06:12 WBC 6.3 RBC 4.47 L Hgb 10.5 L Hct 35.7 L MCV 79.9 L MCH 23.5 L MCHC 29.4 L RDW 17.2 H Plt Count 118 L MPV 11.3 Immature Gran % (Auto) 0.9 H Neut % (Auto) 70.1 Lymph % (Auto) 11.8 L [place] % (Auto) 9.8 Eos % (Auto) 6.6 H Baso % (Auto) 0.8 Lymph # (Auto) 0.8 L [place] # (Auto) 0.6 Eos # (Auto) 0.4 Baso # (Auto) 0.1 Abs Immat Gran (auto) 0.06 H Absolute Neuts (auto) 4.4 Absolute Nucleated RBC 0.000 Nucleated RBC % (auto) 0.0 O2 Saturation ABG pH at Pt Temp ABG pCO2 at Pt Temp ABG pO2 at Pt Temp ABG HCO3 ABG Base Excess (Actual) Sodium 142 Potassium 3.9 Chloride 109 H Carbon Dioxide 23 Anion Gap 14 BUN 79 H Creatinine 5.53 H* Estim Creat Clear Calc 16.9 Estimated GFR 12 Random Glucose 100 Lactic Acid 0.4 L Calcium 7.7 L Phosphorus 4.6 H Magnesium 2.2 CLIVE Screen CLIVE Titer CLIVE Pattern Microbiology Microbiology Results: Microbiology 05/28/25 Unknown Urine clean catch - Clean Catch Midstream Urine Culture - Final Staphylococcus aureus 05/27/25 21:07 Blood - Venous Blood Culture - Preliminary No growth after 48 hours. 05/27/25 21:08 Blood - Venous Blood Culture - Preliminary Prelim: GPC Gram Stain only 05/24/25 08:05 Blood - Venous Blood Culture - Final No growth after 5 days. 05/24/25 08:05 Blood - Venous Blood Culture - Final No growth after 5 days. Progress Note: A&P Assessment and plan (1) Hypertension: Status: Acute (2) Flash pulmonary edema: Status: Acute Plan Patient is a 39 Y M w/ hypertension, hyperlipidemia, polysubstance misuse including cocaine, presenting to ED on 05/23 w/ dyspnea, found to have flash pulmonary edema, placed on non-invasive; ICU course c/b agitation, inability to tolerate non-invasive, subsequently intubated 05/23, extubated N: aphasia, unclear etiology though improving, MRI 05/28 not suggestive of acute intra-cranial process CV: hypertension, c/b flash pulmonary edema, resolved; hypertension, on hydralazine, labetalol, prazosin R: flash pulmonary edema, resolved GI: chopped diet, advance as tolerated : acute on chronic renal insufficiency, to monitor renal indices H: no acute issues ID: of note, UCx 05/28 demonstrating staph aureus, though no overt stigamata of infection, on ciprofloxacin E: to monitor hypo-/hyper-glycemia S: daily updates given to spouse Quality Stroke Does the patient have a stroke diagnosis?: No VTE Prior VTE?: No VTE Risk Level:: Medical - moderate - high VTE Device Contraindication: N/A - Device Ordered VTE Drug Contraindication: N/A - Med Ordered
[2025-05-30] MEDS: Calcium Gluconate/NaCl,Iso-Osm 1 GM/50 ML PLAST..BAG IV (09:49)
[2025-05-30] MEDS: Bumetanide 1 MG/4 ML VIAL IVPUSH ×2 (09:49→16:52)
--- NOTE | 2025-05-30 11:01 | MHC.SLORD ---
Addendum entered and electronically signed by Radha Briscoe MS, CCC-[employer] 05/30/25 12:07: [employer] returned in afternoon, pt voicing and communication notably improved. Pt partner at bedside. Pt endorsed having upset stomach. RN providing care. [employer] provided education to pt and pt partner on reason for dysphagia evaluation post extubation, pt and partner verbalized understanding and agreed with current POC. [employer] continues to follow. Original Note: Speech Language Pathology Order Status: [employer] to see pt this morning for dysphagia follow up, pt resting comfortably in recliner. RN consulted, no concerns with pt PO tolerance. [employer] to revisit pt this afternoon, transfer from ICU pending.
--- NOTE | 2025-05-30 11:14 | PC.NURSE ---
Alert & oriented. Dizzines reported. On RA, diminished lung sounds. SR on tele. Utilizing urinals. LBM 05/29, poor po intake. Vomited x2. Dr. Harding made aware of the above. Skin intact. Peripheral IVs. Plan to transfer to [facility]. Not requiring ICU level of care.?
[2025-05-30] MEDS: Sulfamethox/Trimeth 800/160 TABLET 1 TAB PO (11:43)
--- NOTE | 2025-05-30 15:19 | MHC.CM.PN ---
PT HAS BEEN DOWNGRADED FROM ICU TO MED TELE UNIT. CM WILL CONTINUE TO FOLLOW FOR DC PLAN.
[2025-05-30 18:51] LABS: Anion Gap 16 (12-20); Blood Urea Nitrogen 82 mg/dL (9-16); Calcium 8.3 mg/dL (8.4-10.2); Carbon Dioxide 28 mmol/L (22-29); Chloride 106 mmol/L (96-108); Creatinine Clr Calc Pharmacy 16.9; Estimated Glomerular Filt Rate 12; Magnesium 2.2 mg/dL (1.6-2.6); Potassium 3.9 mmol/L (3.3-5.1); Sodium 146 mmol/L (135-145)
[2025-05-30] MEDS: Sulfamethox/Trimeth 400/80 TABLET 1 TAB PO (22:00)
[2025-05-31] VITALS (8 sets, daily range): BP systolic 151–185; BP diastolic 87–114; PULSE 73–82; RESP 18–20; TEMP 36–36.5; O2SAT 92–96; BMI 29.8
[2025-05-31 06:48] LABS: MANUAL DIFF FLAG NO
[2025-05-31 06:57] LABS: Hematocrit 36.4 % (42.0-52.0); Hemoglobin 11.1 g/dl (14.0-18.0); Imm Gran Abs Auto 0.05 X10*3/uL (0.00-0.03); Imm Gran Pct Auto 0.8 % (0.0-0.4); Lymphocytes Absolute Auto 0.8 X10*3/uL (1.2-4.9); Mean Corpuscular HGB Conc 30.5 g/dl (31.0-36.0); Mean Corpuscular Hemoglobin 23.6 pg (27.0-33.0); Mean Corpuscular Volume 77.3 fL (80.0-98.0); NRBC Abs Auto 0.000 X10*3/uL (0.0-0.012); NRBC Pct Auto 0.0 /100WBC (0.0-0.2); Platelet Count 142 X10*3/uL (160-400); Red Blood Count 4.71 X10*6/uL (4.60-5.80); White Blood Count 6.0 X10*3/uL (4.8-10.8)
[2025-05-31 07:39] LABS: Anion Gap 16 (12-20); Blood Urea Nitrogen 82 mg/dL (9-16); Calcium 8.0 mg/dL (8.4-10.2); Carbon Dioxide 25 mmol/L (22-29); Chloride 106 mmol/L (96-108); Creatinine Clr Calc Pharmacy 17.5; Estimated Glomerular Filt Rate 12; Magnesium 2.2 mg/dL (1.6-2.6); Potassium 3.6 mmol/L (3.3-5.1); Sodium 143 mmol/L (135-145)
[2025-05-31] MEDS: Sulfamethox/Trimeth 400/80 TABLET 1 TAB PO ×2 (09:11→19:47)
[2025-05-31] MEDS: Bumetanide 1 MG/4 ML VIAL IVPUSH ×2 (09:13→17:11)
--- NOTE | 2025-05-31 14:56 | P.PNIM_ITS ---
Subjective Subjective Date of Service: 05/31/25 Interval History: No acute issues overnight. States feels great this a.m. Review of Systems Denies pain A shortness of breath Denies nausea vomiting diarrhea Denies fever chills Physical Exam 2 Vital Signs: Vital Signs: Last Vital Signs Temp 97.5 F 05/31/25 11:52 Pulse 73 05/31/25 11:52 Resp 18 05/31/25 11:52 BP 161/89 H 05/31/25 11:52 Pulse Ox 94 05/31/25 11:52 O2 Del Method Room Air 05/31/25 11:52 O2 Flow Rate 2 05/31/25 07:44 FiO2 30 05/30/25 05:00 Oxygen Flow Rate 8 05/23/25 05:05 BMI result Body Mass Index 29.8 Const: Other: Awake alert no acute distress Resp: Other: Clear to auscultation bilaterally no rales rhonchi or wheezes Cardio: Other: No S4; positive S1-S2; no S3 murmurs rubs or gallops GI: Other: Soft nontender nondistended normoactive bowel sounds Extrem: Other: No edema bilaterally Objective Data Active Medications Amlodipine Besylate (Amlodipine Besylate 10 Mg Tablet) 10 mg PO DAILY [facility]; Protocol Last Admin: 05/31/25 09:12 Dose: 10 mg Documented By: RAUL Bumetanide (Bumetanide 1 Mg/4 Ml Vial) 1 mg IVPUSH BID@0900,1700 [facility]; Protocol Last Admin: 05/31/25 09:13 Dose: 1 mg Documented By: RAUL Calcium Acetate (Calcium Acetate 667 Mg Capsule) 667 mg PO TIDWM [facility] Last Admin: 05/31/25 13:31 Dose: 667 mg Documented By: RAUL Heparin Sodium (Porcine) (Heparin Sodium,Porcine 5,000 Unit/Ml Vial) 5,000 unit SUBCUT Q8H [facility] Last Admin: 05/31/25 09:13 Dose: 5,000 unit Documented By: RAUL Hydralazine HCl (Hydralazine Hcl 25 Mg Tablet) 75 mg PO TID [facility]; Protocol Last Admin: 05/31/25 14:36 Dose: 75 mg Documented By: RAUL Hydralazine HCl (Hydralazine Hcl 20 Mg/Ml Vial) 10 mg IVPUSH Q4H PRN; Protocol PRN Reason: Hypertension Acetaminophen (Ofirmev) 1,000 mg in 100 mls @ 400 mls/hr IV Q6H PRN PRN Reason: Fever Labetalol HCl (Labetalol Hcl 200 Mg Tablet) 200 mg PO TID [facility]; Protocol Last Admin: 05/31/25 14:36 Dose: 200 mg Documented By: RAUL Prazosin HCl (Prazosin Hcl 1 Mg Capsule) 2 mg PO BEDTIME [facility]; Protocol Last Admin: 05/30/25 22:00 Dose: 2 mg Documented By: ROSETTA Trimethoprim/Sulfamethoxazole (Sulfamethox/Trimeth 400/80 Tablet) 1 tab PO BID [facility] Stop: 06/03/25 21:01 Last Admin: 05/31/25 09:11 Dose: 1 tab Documented By: RAUL Labs 05/31/25 06:31 05/31/25 06:31 Labs: Laboratory Results - last 24 hr 05/30/25 05/31/25 17:55 06:31 MCV 77.3 L MCH 23.6 L MCHC 30.5 L RDW 16.9 H Plt Count 142 L MPV 11.0 Immature Gran % (Auto) 0.8 H Neut % (Auto) 71.5 Lymph % (Auto) 12.5 L [place] % (Auto) 8.7 Eos % (Auto) 6.0 H Baso % (Auto) 0.5 Lymph # (Auto) 0.8 L [place] # (Auto) 0.5 Eos # (Auto) 0.4 Baso # (Auto) 0.0 Abs Immat Gran (auto) 0.05 H Absolute Neuts (auto) 4.3 Absolute Nucleated RBC 0.000 Nucleated RBC % (auto) 0.0 Anion Gap 16 16 Estim Creat Clear Calc 16.9 17.5 Estimated GFR 12 12 Random Glucose 95 97 Calcium 8.3 L D 8.0 L Phosphorus 5.5 H 5.4 H Magnesium 2.2 2.2 Microbiology Microbiology Results: Microbiology 05/27/25 21:07 Blood Culture - Preliminary Blood - Venous No growth after 48 hours. 05/27/25 21:08 Blood Culture - Final Blood - Venous Coag negative Staphylococcus 05/30/25 06:12 Blood Culture - Preliminary Blood - Venous No growth after 24 hours. 05/30/25 06:12 Blood Culture - Preliminary Blood - Venous No growth after 24 hours. Assessment and Plan (1) Decompensated heart failure: Status: Acute (2) Hypertension: Status: Acute (3) Chronic kidney disease: Status: Acute Plan 39-year-old male with past medical history of chronic cocaine use, hypertension, hyperlipidemia, obesity, TRESSA on CPAP, tobacco dependence, marijuana use daily, constipation, status post ventral hernia repair with current unreducible hernia, bilateral inguinal hernia presented to the ED this morning with complains of shortness of breath. Shortness of breadth was acute in onset, severe associated with uncontrolled hypertension with blood pressure 228/154 with a map of 178mmHg. He was placed on BiPAP support for flash pulmonary edema, started on nitroglycerin drip and MICU was consulted for admission. Transfer out of ICU to telemetry where he has remained stable 1. Acute hypoxic respiratory failure secondary to flash pulmonary edema -successfully weaned off BiPAP. -no O2 requirement -echo with increased right-sided pressures (likely related to uncontrolled hypertension in the backdrop of cocaine use) -consult cardiology in a.m. 2. Chronic kidney disease -consult renal in a.m. -follow renals/divalent 3. Hypertension -poorly controlled (in backdrop of noncompliance) -continue current therapies -await renal input Full code Heparin Requires ongoing hospitalization to treat uncontrolled hypertension causing flash pulmonary edema which will include specialty consultation Quality Stroke Does the patient have a stroke diagnosis?: No VTE Prior VTE?: No VTE Risk Level:: Medical - moderate - high VTE Device Contraindication: N/A - Device Ordered VTE Drug Contraindication: N/A - Med Ordered
--- NOTE | 2025-05-31 15:38 | PM.CNNEP ---
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 Requesting to follow [facility] in [place] as he recently moved to [place]), presented to the ED with shortness of breath on 05/23. was intubated in MICU for flash pulmonary edema/not tolerating bipap, nicardipine drip for malignant hypertension, now extubated and transferred to medicine floor 05/31. Nephrology consulted for management of renal disease. creatinine - in January 2025. April 2025 creatinine . 05/23 on presentation, creatinine 6.50. peaked at 7.11, and has trended downward, now near baseline at 5.54 today, 05/31. GFR ~12 urine protein/creatinine ratio 1.45 UA with protein, some WBCs, no blood. CLIVE screen positive, though titers low ANCA negative complements normal HIV/Hepatitis screening unremarkable He is making good urine- 1600ml today. patient with urine tox screen positive for cocaine, benzodiazepines and marijuana on presentation. patient states he is feeling well. States he has moved from [place] to [place] to help avoid negative lifestyle he has in [place]. He states his breathing is comfortable. He denies pain. He denies urinary symptoms and is making about a liter and a half of urine daily. He notes he does take advil at home- he will stop. Reports he was using cocaine but is planning to work to avoid drug use going forward. Denies other complaints/concerns at this time. Review of Systems Review of Systems Yes all other systems are reviewed and are negative [facility] Past Medical History Medical History Hyperlipidemia Hypertension Tobacco use Surgical History Surgical History H/O inguinal hernia repair H/O ventral hernia repair Social History Social History Household Members: Unknown / Unable to assess Household Members Other:: unknown if any other household members Housing: Unknown / Unable to assess Do you presently have visiting nurse or other home services: No Patient Tobacco Use Status: Current everyday Tobacco user Tobacco use type: Cigarette Smoked in Last 30 Days: Yes e-Cigarette/Vaping Use: Never Used Second Hand Smoke Exposure: No Use of substances other than those prescribed or required for medical reasons: Yes Substance Use Type: Crack/Cocaine Substance Use Frequency: Weekly Currently Displaying Signs/Symptoms of Drug Intoxication Withdrawal: No Advance Directives: No service: No Sexual orientation: Straight/Heterosexual Meds Allergies Allergy/AdvReac Type Severity Reaction Status Date / Time No Known Allergies Allergy Verified 05/23/25 05:08 Active Medications: Current Medications Amlodipine Besylate (Amlodipine Besylate 10 Mg Tablet) 10 mg PO DAILY [facility]; Protocol Last Admin: 05/31/25 09:12 Dose: 10 mg Bumetanide (Bumetanide 1 Mg/4 Ml Vial) 1 mg IVPUSH BID@0900,1700 [facility]; Protocol Last Admin: 05/31/25 09:13 Dose: 1 mg Calcium Acetate (Calcium Acetate 667 Mg Capsule) 667 mg PO TIDWM [facility] Last Admin: 05/31/25 13:31 Dose: 667 mg Heparin Sodium (Porcine) (Heparin Sodium,Porcine 5,000 Unit/Ml Vial) 5,000 unit SUBCUT Q8H [facility] Last Admin: 05/31/25 09:13 Dose: 5,000 unit Hydralazine HCl (Hydralazine Hcl 25 Mg Tablet) 75 mg PO TID [facility]; Protocol Last Admin: 05/31/25 14:36 Dose: 75 mg Hydralazine HCl (Hydralazine Hcl 20 Mg/Ml Vial) 10 mg IVPUSH Q4H PRN; Protocol PRN Reason: Hypertension Acetaminophen (Ofirmev) 1,000 mg in 100 mls @ 400 mls/hr IV Q6H PRN PRN Reason: Fever Labetalol HCl (Labetalol Hcl 200 Mg Tablet) 200 mg PO TID [facility]; Protocol Last Admin: 05/31/25 14:36 Dose: 200 mg Prazosin HCl (Prazosin Hcl 1 Mg Capsule) 2 mg PO BEDTIME [facility]; Protocol Last Admin: 05/30/25 22:00 Dose: 2 mg Trimethoprim/Sulfamethoxazole (Sulfamethox/Trimeth 400/80 Tablet) 1 tab PO BID [facility] Stop: 06/03/25 21:01 Last Admin: 05/31/25 09:11 Dose: 1 tab Home Medications ?Medication ?Instructions ?Recorded ?Confirmed ?Last Taken ?Type bumetanide 1 mg tablet 1 mg PO BID 01/27/25 05/23/25 Unknown History clonidine HCl 0.1 mg tablet 0.1 mg PO TID 01/27/25 01/27/25 Unknown History hydralazine 50 mg tablet 50 mg PO BID 01/27/25 05/23/25 Unknown History labetalol 200 mg tablet 200 mg PO TID 01/27/25 01/27/25 Unknown History prazosin 2 mg capsule 2 mg PO BEDTIME 01/27/25 05/23/25 Unknown History spironolactone 50 mg tablet 50 mg PO DAILY 01/27/25 01/27/25 Unknown History Physical Exam Vital Signs: Last Vital Signs Temp 97.5 F 05/31/25 11:52 Pulse 73 05/31/25 11:52 Resp 18 05/31/25 11:52 BP 161/89 H 05/31/25 11:52 Pulse Ox 94 05/31/25 11:52 O2 Del Method Room Air 05/31/25 11:52 O2 Flow Rate 2 05/31/25 07:44 FiO2 30 05/30/25 05:00 Oxygen Flow Rate 8 05/23/25 05:05 BMI result Body Mass Index 29.8 Const General: no acute distress, alert and awake Resp Effort & Inspection: normal respiratory effort and able to speak in complete sentences Auscultation: clear to auscultation bilaterally Cardio Rate: regular rate Rhythm: regular rhythm Heart sounds: S1 normal heart sound present and S2 normal heart sound present GI Inspection: Yes distended Palpation (GI): nontender General: Yes no CVA tenderness Back/Spine/Pelvis Back: no CVA tenderness Skin Rashes: no rashes Extrem General: No edema Results Lab Results 05/31/25 06:31 05/31/25 06:31 Lab results: Chemistry 05/28/25 05/29/25 05/29/25 20:02 05:34 17:54 Sodium 149 H 148 H 146 H Potassium 4.0 3.9 4.0 Carbon Dioxide 26 26 26 BUN 82 H 81 H 77 H Creatinine 5.85 H* 5.69 H* 5.58 H* Calcium 7.7 L 7.9 L 7.6 L Phosphorus 4.1 4.8 H 4.5 05/30/25 05/30/25 05/31/25 06:12 17:55 06:31 Sodium 142 146 H 143 Potassium 3.9 3.9 3.6 Carbon Dioxide 23 28 25 BUN 79 H 82 H 82 H Creatinine 5.53 H* 5.54 H* 5.54 H* Calcium 7.7 L 8.3 L D 8.0 L Phosphorus 4.6 H 5.5 H 5.4 H Hematology 05/29/25 05/30/25 05/31/25 05:34 06:12 06:31 WBC 6.2 6.3 6.0 Hgb 10.7 L 10.5 L 11.1 L Plt Count 112 L 118 L 142 L Assessment and Plan (1) Acute renal failure superimposed on chronic kidney disease: Status: Acute Plan Patient with CKD5 likely secondary to chronic cocaine use patient's renal function remains very poor, though he is making adequate urine and creatinine remains stable urine protein/creatinine ratio 1.45 UA with protein, some WBCs, no blood. CLIVE screen positive, though titers low ANCA negative complements normal HIV/Hepatitis screening unremarkable discussed with patient he is close to dialysis, will need to ensure he is diligent about his health, avoiding drugs, and keeping his healthcare appointments, and taking medication as prescribed in order to prevent further progression of renal disease, which would likely lead to dialysis dependence. discussed avoiding NSAIDs, drugs, healthy diet, adequate hydration, weight loss. avoid nephrotoxins will continue to follow while inpatient. Once patient is discharged, we will make close follow up with him in our outpatient nephrology clinic. Discussed with Dr Li. Procedures Date of Service Date of Service: 05/31/25
[2025-05-31 18:58] LABS: Anion Gap 16 (12-20); Blood Urea Nitrogen 80 mg/dL (9-16); Calcium 8.2 mg/dL (8.4-10.2); Carbon Dioxide 26 mmol/L (22-29); Chloride 103 mmol/L (96-108); Creatinine Clr Calc Pharmacy 17.4; Estimated Glomerular Filt Rate 11; Magnesium 2.3 mg/dL (1.6-2.6); Potassium 3.8 mmol/L (3.3-5.1); Sodium 141 mmol/L (135-145)
[2025-06-01] VITALS (9 sets, daily range): BP systolic 151–178; BP diastolic 83–100; PULSE 69–84; RESP 17–20; TEMP 36.3–37.2; O2SAT 94–99; BMI 28.0
[2025-06-01 06:25] LABS: Hemoglobin 10.2 g/dl (14.0-18.0); Mean Corpuscular HGB Conc 30.4 g/dl (31.0-36.0); NRBC Abs Auto 0.000 X10*3/uL (0.0-0.012); NRBC Pct Auto 0.0 /100WBC (0.0-0.2); PLT ABN DIST 1; SCAN SMEAR FLAG 1
[2025-06-01 06:27] LABS: Hematocrit 33.5 % (42.0-52.0); Imm Gran Abs Auto 0.05 X10*3/uL (0.00-0.03); Imm Gran Pct Auto 0.9 % (0.0-0.4); Lymphocytes Absolute Auto 0.9 X10*3/uL (1.2-4.9); Mean Corpuscular Hemoglobin 23.3 pg (27.0-33.0); Mean Corpuscular Volume 76.7 fL (80.0-98.0); Platelet Count 147 X10*3/uL (160-400); Red Blood Count 4.37 X10*6/uL (4.60-5.80); White Blood Count 5.9 X10*3/uL (4.8-10.8)
[2025-06-01 06:29] LABS: MANUAL DIFF FLAG NO
[2025-06-01 06:46] LABS: Alanine Aminotransferase 43 U/L (0-40); Albumin Level 3.4 g/dL (3.5-5.0); Alkaline Phosphatase 44 U/L (39-117); Anion Gap 13 (12-20); Aspartate Amino Transferase 51 U/L (5-37); Blood Urea Nitrogen 77 mg/dL (9-16); Calcium 7.7 mg/dL (8.4-10.2); Carbon Dioxide 25 mmol/L (22-29); Chloride 105 mmol/L (96-108); Creatinine Clr Calc Pharmacy 16.8; Estimated Glomerular Filt Rate 11; Magnesium 2.2 mg/dL (1.6-2.6); Potassium 3.6 mmol/L (3.3-5.1); Sodium 139 mmol/L (135-145); Total Protein 6.4 g/dL (6.5-8.0)
[2025-06-01] MEDS: Bumetanide 1 MG/4 ML VIAL IVPUSH (07:48)
[2025-06-01] MEDS: Sulfamethox/Trimeth 400/80 TABLET 1 TAB PO (07:49)
--- NOTE | 2025-06-01 08:46 | P.PNNP_ITS ---
Subjective Subjective Date of Service: 06/01/25 Interval history: No events noted. Patient states he feels well this morning. No events noted. Creatinine remains stable. Patient continues to make adequate urine. Physical Exam 2 Vital Signs: Vital Signs: Last Vital Signs Temp 97.8 F 06/01/25 07:33 Pulse 79 06/01/25 07:33 Resp 20 06/01/25 07:33 BP 178/100 H 06/01/25 07:33 Pulse Ox 94 06/01/25 07:33 O2 Del Method Room Air 06/01/25 07:33 O2 Flow Rate 2 05/31/25 07:44 FiO2 30 05/30/25 05:00 Oxygen Flow Rate 8 05/23/25 05:05 BMI result Body Mass Index 28.0 Const: General: no acute distress, alert and awake Resp: Effort & Inspection: normal respiratory effort and able to speak in complete sentences Auscultation: clear to auscultation bilaterally Cardio: Rate: regular rate Rhythm: regular rhythm Heart sounds: S1 normal heart sound present and S2 normal heart sound present GI: Inspection: Yes distended Palpation (GI): nontender : General: Yes no CVA tenderness Back/Spine/Pelvis: Back: no CVA tenderness Skin: Rashes: no rashes Extrem: General: No edema Objective Data Labs 06/01/25 05:45 06/01/25 05:45 Labs: Laboratory Results - last 24 hr 05/31/25 06/01/25 18:30 05:45 WBC 5.9 RBC 4.37 L Hgb 10.2 L Hct 33.5 L MCV 76.7 L MCH 23.3 L MCHC 30.4 L RDW 16.6 H Plt Count 147 L MPV 11.6 Immature Gran % (Auto) 0.9 H Neut % (Auto) 69.7 Lymph % (Auto) 15.8 L [place] % (Auto) 8.7 Eos % (Auto) 4.4 H Baso % (Auto) 0.5 Lymph # (Auto) 0.9 L [place] # (Auto) 0.5 Eos # (Auto) 0.3 Baso # (Auto) 0.0 Abs Immat Gran (auto) 0.05 H Absolute Neuts (auto) 4.1 Absolute Nucleated RBC 0.000 Nucleated RBC % (auto) 0.0 Sodium 141 139 Potassium 3.8 3.6 Chloride 103 105 Carbon Dioxide 26 25 Anion Gap 16 13 BUN 80 H 77 H Creatinine 5.57 H* 5.60 H* Estim Creat Clear Calc 17.4 16.8 Estimated GFR 11 11 Random Glucose 107 90 Fasting Glucose 91 Calcium 8.2 L 7.7 L D Phosphorus 4.6 H 4.7 H Magnesium 2.3 2.2 Total Bilirubin 0.3 AST 51 H ALT 43 H Alkaline Phosphatase 44 Total Protein 6.4 L Albumin 3.4 L Microbiology Microbiology Results: Microbiology 05/30/25 06:12 Blood - Venous Blood Culture - Preliminary No growth after 48 hours. 05/30/25 06:12 Blood - Venous Blood Culture - Preliminary No growth after 48 hours. 05/27/25 21:07 Blood - Venous Blood Culture - Preliminary No growth after 48 hours. 05/27/25 21:08 Blood - Venous Blood Culture - Final Coag negative Staphylococcus 05/28/25 Unknown Urine clean catch - Clean Catch Midstream Urine Culture - Final Staphylococcus aureus 05/24/25 08:05 Blood - Venous Blood Culture - Final No growth after 5 days. 05/24/25 08:05 Blood - Venous Blood Culture - Final No growth after 5 days. Procedures Date of Service Date of Service: 06/01/25 Assessment & Plan Assessment and plan (1) Acute renal failure superimposed on chronic kidney disease: Status: Acute Plan Patient with advanced renal disease likely secondary to chronic cocaine use patient's renal function remains very poor, though he is making adequate urine and creatinine remains stable urine protein/creatinine ratio 1.45 UA with protein, some WBCs, no blood. CLIVE screen positive, though titers low ANCA negative complements normal HIV/Hepatitis screening unremarkable blood pressures suboptimal- increased hydralazine to 100mg PO TID, labeolol to 300mg PO TID, and switched from amlodipine to nifedipine 30mg daily. Pt is ok to go home this afternoon if SBP close to 160. May increase nifedipine tomorrow a.m. to 60mg PO daily if needed. discussed with patient he is close to dialysis, will need to ensure he is diligent about his health, avoiding drugs, and keeping his healthcare appointments, and taking medication as prescribed in order to prevent further progression of renal disease, which would likely lead to dialysis dependence. discussed avoiding NSAIDs, drugs, healthy diet low in sodium, potassium, phosphorus. Discussed fluid restriction 1.5L/24 hours. Recommend weight loss. avoid nephrotoxins will continue to follow while inpatient. Once patient is discharged, we will make close follow up with him in our outpatient nephrology clinic- pt requesting to see nephrology doctor at [facility] [place]. Discussed with Dr Castillo. Time Spent With Patient Time: Total time managing care of this patient today ____ minutes. Progress Note: Quality Stroke Does the patient have a stroke diagnosis?: No
--- NOTE | 2025-06-01 10:04 | MHC.SL.SWA ---
Speech Pathologist Impression: Risk of Aspiration Due to: Dysphasia Diet Status: Recommend advance patient to regular diet with thin liquids, pills whole with liquid. Liquid Consistency and Strategies for Safe Swallow: Liquid Intake Recommendation: Thin Liquid Intake Strategies: Small Sips Solid Food Consistency: Dietary Recommendations: Regular Additional Modifications to Solid Foods: Oral Medication Intake: Whole with Liquid Please contact the pharmacy regarding appropriate crushable or liquid drug formulations that are available whenever modified delivery is recommended. Compensatory Strategies and Precautions to be Taken for Safe Swallow: Sitting Upright (90 deg) Liquids from Cup Small Bites and Sips Alternate Liquids/Solids Supervision While Eating and Drinking for Safe Swallow: None Needed Foods to Avoid: Swallowing Recommended Treatments: Compens. Strategy Educat. Recommendation for Speech: Inpatient Speech Therapy Comment: Patient seen at breakfast this morning, with patient finishing food present on tray. Patient very pleasant and cooperative, expressed satisfaction with food and meals, with improvement from yesterday (patient now on low sodium diet). Recommend advance patient to regular diet with thin liquids which will be least restrictive. Recommend d/c speech/swallow service as patient has been stable and without an evidence of risk of aspiration. Frequency/Duration: Daily M-F Date Range for Service Req: Timeline to reassess: Pediatric Dentist Clinican/Clinical Fellow: No Supervisory Statement: I have reviewed and agree with the student/clinical fellow's documentation: N/A Speech Language Pathologist: Marielle Villavicencio M.A., CCC-ORAL SURGERY TECHNICIAN
--- NOTE | 2025-06-01 11:30 | MHC.CM.PN ---
Patient is discharged to home today. [facility] will provide home care services: SN+PT. The agency has been notified that the patient will discharge today. Patients will provide transportation home.
[2025-06-01] MEDS: NIFEdipine ER 30 MG TAB.ER.24 PO (13:00)
--- NOTE | 2025-06-01 15:58 | PM.DS ---
DS: Providers Provider Date of Service: 06/01/25 Date of admission: 05/23/25 07:15 Date of discharge: 06/01/25 Primary care physician: Charlee Thurman PA-C Consults: 05/29/25 07:54 Consult to Neurology Routine Consulting Provider: [facility] Reason for consultation: Aphasia Has provider been notified: No 05/31/25 15:05 Consult to Nephrology Routine Consulting Provider: [facility] Reason for consultation: ESRD Has provider been notified: No DS: Diagnosis Discharge Diagnosis (1) Acute renal failure superimposed on chronic kidney disease: Status: Acute DS: Summary Hospital Course Hospital Course: 9-year-old male with past medical history of chronic cocaine use, hypertension, hyperlipidemia, obesity, TRESSA on CPAP, tobacco dependence, marijuana use daily, constipation, status post ventral hernia repair with current unreducible hernia, bilateral inguinal hernia presented to the ED this morning with complains of shortness of breath. Shortness of breadth was acute in onset, severe associated with uncontrolled hypertension with blood pressure 228/154 with a map of 178mmHg. He was placed on BiPAP support for flash pulmonary edema, started on nitroglycerin drip and MICU was consulted for admission. He admits using cocaine 3 days ago. Hospital Course Patient admitted to ICU secondary to need for BiPAP as well as nitroglycerin drip for blood pressure control. Nitroglycerin ineffective inpatient was switched to nicardipine drip. Unable to tolerate BiPAP and was subsequently intubated for management. Subsequently extubated on 05/25. Weaned off nicardipine drip and remained stable from a pressure standpoint. Transferred out to telemetry where monitor failed to demonstrate any acute dysrhythmias. Seen in consultation by renal who adjusted meds. They will follow him up in the office. At this point in time he is medically acceptable for discharge Time Attestation Discharge Coordination Time (in mins): 35 Quality: Safe Use of Opioids Does Pt have an Active Cancer Diagnosis on the Problem List?: No Quality: Stroke Does the patient have a stroke diagnosis?: No Physical Exam Vital Signs: Vital Signs: Last Vital Signs Temp 98.9 F 06/01/25 15:55 Pulse 74 06/01/25 15:55 Resp 18 06/01/25 15:55 BP 166/97 H 06/01/25 15:55 Pulse Ox 98 06/01/25 15:55 O2 Del Method Room Air 06/01/25 15:55 O2 Flow Rate 2 05/31/25 07:44 FiO2 30 05/30/25 05:00 Oxygen Flow Rate 8 05/23/25 05:05 BMI result Body Mass Index 28.0 DS: Data Data Completed and Pending Labs on day of discharge: Laboratory Results - last 24 hr 05/31/25 06/01/25 18:30 05:45 WBC 5.9 RBC 4.37 L Hgb 10.2 L Hct 33.5 L MCV 76.7 L MCH 23.3 L MCHC 30.4 L RDW 16.6 H Plt Count 147 L MPV 11.6 Immature Gran % (Auto) 0.9 H Neut % (Auto) 69.7 Lymph % (Auto) 15.8 L [place] % (Auto) 8.7 Eos % (Auto) 4.4 H Baso % (Auto) 0.5 Lymph # (Auto) 0.9 L [place] # (Auto) 0.5 Eos # (Auto) 0.3 Baso # (Auto) 0.0 Abs Immat Gran (auto) 0.05 H Absolute Neuts (auto) 4.1 Absolute Nucleated RBC 0.000 Nucleated RBC % (auto) 0.0 Sodium 141 139 Potassium 3.8 3.6 Chloride 103 105 Carbon Dioxide 26 25 Anion Gap 16 13 BUN 80 H 77 H Creatinine 5.57 H* 5.60 H* Estim Creat Clear Calc 17.4 16.8 Estimated GFR 11 11 Random Glucose 107 90 Fasting Glucose 91 Calcium 8.2 L 7.7 L D Phosphorus 4.6 H 4.7 H Magnesium 2.3 2.2 Total Bilirubin 0.3 AST 51 H ALT 43 H Alkaline Phosphatase 44 Total Protein 6.4 L Albumin 3.4 L Preliminary micro results at discharge 05/30/25 06:12 Blood Culture - Preliminary Blood - Venous No growth after 48 hours. 05/30/25 06:12 Blood Culture - Preliminary Blood - Venous No growth after 48 hours. 05/27/25 21:07 Blood Culture - Preliminary Blood - Venous No growth after 48 hours. Discharge Plan Discharge Anticipated Discharge Date/Time: 06/01/25 15:51 Patient Disposition: Home Health Service Discharge Diagnosis: Flash pulmonary edema secondary to malignant hypertension Referrals: [facility] [Outside] - 1 Week Charlee Thurman PA-C [Primary Care Provider, Internal Medicine] - 1 Week Discharge Medications: New nifedipine 30 mg Tablet Extended Release 24hr 30 mg PO DAILY Qty: 30 0RF Protocol: Hold for SBP< HOLD for SBP < : 90 hydralazine 50 mg Tablet 100 mg PO TID Qty: 90 0RF Protocol: Hold for SBP< HOLD for SBP < : 90 labetalol 100 mg Tablet 100 mg PO TID Qty: 90 0RF Protocol: Hold for SBP/HR < HOLD for SBP < : 90 HOLD for HR < : 60 Continued clonidine HCl 0.1 mg tablet 0.1 mg PO TID bumetanide 1 mg tablet 1 mg PO BID prazosin 2 mg capsule 2 mg PO BEDTIME spironolactone 50 mg tablet 50 mg PO DAILY Discontinued amlodipine 10 mg Tablet 10 mg PO DAILY Qty: 30 0RF Protocol: Hold for SBP< HOLD for SBP < : 90 labetalol 200 mg tablet 200 mg PO TID hydralazine 50 mg tablet 50 mg PO BID Discharge Orders: Discharge Order (Routine); Ordered 06/01/25 Ordered By: Sammy Garza Diet: Advance to usual diet Activity on Discharge: As tolerated Stand Alone Forms: Patient Portal Discharge page Print Language: Estonian Care Plan Goals: Your medications has been adjusted. New prescriptions has been sent to [facility] Concerns: Follow up with renal; they will call you for a follow up appointment Plan of Treatment: Resume all other therapies as outlined on your discharge packet Assessment: See discharge summary
== END 2025-06-01 16:49 | disposition home health service (06) | DRG 816 ==
LOC: HO.ED 07:24 → HO.EDOVER 07:24 → HO.ICU 08:07 → HO.IMC 05-30 14:51
PROVIDERS: Internal Medicine Critical Care Medicine; Nurse Practitioner Family; Physician Assistant Medical; Registered Nurse Community Health; Admitting Provider Internal Medicine Critical Care Medicine; Emergency Provider Emergency Medicine; PCP Physician Assistant; Visit Provider Hospitalist
DX: T40.5X1A Poisoning by cocaine, accidental (unintentional), initial encounter (principal); J96.01 Acute respiratory failure with hypoxia; G92.8 Other toxic encephalopathy; I50.41 Acute combined systolic (congestive) and diastolic (congestive) heart failure; E87.0 Hyperosmolality and hypernatremia; N17.9 Acute kidney failure, unspecified; D63.1 Anemia in chronic kidney disease; E83.39 Other disorders of phosphorus metabolism; R76.0 Raised antibody titer; R47.01 Aphasia; F14.13 Cocaine abuse, unspecified with withdrawal; I13.2 Hypertensive heart and chronic kidney disease with heart failure and with stage 5 chronic kidney disease, or end stage renal disease; N18.5 Chronic kidney disease, stage 5; E78.5 Hyperlipidemia, unspecified; G47.33 Obstructive sleep apnea (adult) (pediatric); F17.210 Nicotine dependence, cigarettes, uncomplicated; Z71.6 Tobacco abuse counseling; Z20.822 Contact with and (suspected) exposure to COVID-19; Z79.899 Other long term (current) drug therapy
CPT/HCPCS: 36415; 36600; 70450; 70551; 71045; 80048; 80053; 80307; 81001; 82040; 82043; 82570; 82803; 83605; 83735; 83880; 84100; 84156; 84484; 85025; 86021; 86038; 86039; 86160; 86704; 86706; 86780; 86803; 87040; 87086; 87088; 87147; 87186; 87205; 87340; 87389; 87502; 87635; 92526; 92610; 93005; 93306; 94002; 94003; 94640; 94660; 97116; 97163; 97167; 97530; 99285; J0360; J0613; J0696; J0737; J1644; J1920; J1938; J1939; J2250; J2251; J2305; J2359; J2404; J2470; J2543; J2704; J3360; J3480; P9047

== ENCOUNTER → 2025-05-23 05:24 | Outpatient (BNV) | payer MEDICAID, SELFPAY | PROVIDERS: Admitting Provider Internal Medicine Critical Care Medicine; Emergency Provider Emergency Medicine; PCP Physician Assistant; Visit Provider Radiology Diagnostic Radiology | DX: R09.02 Hypoxemia (principal); R06.02 Shortness of breath | CPT/HCPCS: 71045 ==

== ENCOUNTER → 2025-05-23 06:10 | Outpatient (BNV) | payer MEDICAID, SELFPAY | PROVIDERS: Admitting Provider Internal Medicine Critical Care Medicine; Emergency Provider Emergency Medicine; PCP Physician Assistant; Visit Provider Internal Medicine Cardiovascular Disease | DX: I42.2 Other hypertrophic cardiomyopathy (principal); I51.7 Cardiomegaly; I34.0 Nonrheumatic mitral (valve) insufficiency; R94.31 Abnormal electrocardiogram [ECG] [EKG]; R06.02 Shortness of breath; I45.10 Unspecified right bundle-branch block | CPT/HCPCS: 93010; 93306; 93356 ==

== ENCOUNTER 2025-05-23 07:15 | Outpatient (BNV) | payer MEDICAID, SELFPAY | END 2025-05-27 20:55 | PROVIDERS: Admitting Provider Internal Medicine Critical Care Medicine; Emergency Provider Emergency Medicine; PCP Physician Assistant; Visit Provider Radiology Diagnostic Radiology | DX: R09.02 Hypoxemia (principal) | CPT/HCPCS: 71045 ==

== ENCOUNTER 2025-05-23 07:15 | Outpatient (BNV) | payer MEDICAID, SELFPAY | END 2025-05-28 12:49 | PROVIDERS: Admitting Provider Internal Medicine Critical Care Medicine; Emergency Provider Emergency Medicine; PCP Physician Assistant; Visit Provider Radiology Diagnostic Radiology | DX: I63.81 Other cerebral infarction due to occlusion or stenosis of small artery (principal) | CPT/HCPCS: 70551 ==

== ENCOUNTER 2025-05-23 07:15 | Outpatient (BNV) | payer MEDICAID, SELFPAY | END 2025-05-30 11:54 | PROVIDERS: Admitting Provider Internal Medicine Critical Care Medicine; Emergency Provider Emergency Medicine; PCP Physician Assistant; Visit Provider Internal Medicine | DX: I51.7 Cardiomegaly (principal) | CPT/HCPCS: 93010 ==

== ENCOUNTER 2025-05-23 07:15 | Outpatient (BNV) | payer MEDICAID, SELFPAY | END 2025-05-26 12:21 | PROVIDERS: Admitting Provider Internal Medicine Critical Care Medicine; Emergency Provider Emergency Medicine; PCP Physician Assistant; Visit Provider Radiology Diagnostic Radiology | DX: R41.82 Altered mental status, unspecified (principal) | CPT/HCPCS: 70450 ==

== ENCOUNTER → 2025-05-23 07:15 | Outpatient (BNV) | payer MEDICAID, SELFPAY | PROVIDERS: Admitting Provider Internal Medicine Critical Care Medicine; Emergency Provider Emergency Medicine; PCP Physician Assistant; Visit Provider Hospitalist | DX: N17.9 Acute kidney failure, unspecified (principal); N18.9 Chronic kidney disease, unspecified | CPT/HCPCS: 99232; 99239 ==

== ENCOUNTER → 2025-05-23 07:15 | Outpatient (BNV) | payer MEDICAID, SELFPAY | PROVIDERS: Admitting Provider Internal Medicine Critical Care Medicine; Emergency Provider Emergency Medicine; PCP Physician Assistant; Visit Provider Internal Medicine Critical Care Medicine | DX: I50.9 Heart failure, unspecified (principal); F14.94 Cocaine use, unspecified with cocaine-induced mood disorder; I12.9 Hypertensive chronic kidney disease with stage 1 through stage 4 chronic kidney disease, or unspecified chronic kidney disease; N17.9 Acute kidney failure, unspecified; N18.9 Chronic kidney disease, unspecified; J81.0 Acute pulmonary edema | CPT/HCPCS: 99291 ==

== ENCOUNTER → 2025-05-23 07:15 | Outpatient (BNV) | payer MEDICAID, SELFPAY | PROVIDERS: Admitting Provider Internal Medicine Critical Care Medicine; Emergency Provider Emergency Medicine; PCP Physician Assistant; Visit Provider Psychiatry & Neurology Neurology | DX: F80.1 Expressive language disorder (principal) | CPT/HCPCS: 99222 ==

== ENCOUNTER → 2025-05-23 07:15 | Outpatient (BNV) | payer MEDICAID, SELFPAY | PROVIDERS: Admitting Provider Internal Medicine Critical Care Medicine; Emergency Provider Emergency Medicine; PCP Physician Assistant; Visit Provider Nurse Practitioner Family | DX: N17.9 Acute kidney failure, unspecified (principal); N18.9 Chronic kidney disease, unspecified | CPT/HCPCS: 99222 ==

== ENCOUNTER 2025-07-13 10:12 | Outpatient (REF) | payer MEDICAID, SELFPAY ==
[2025-07-13 13:19] LABS: MANUAL DIFF FLAG NO
[2025-07-13 13:26] LABS: Appearance Urine Clear; Glucose Urine UA Negative (Negative); Hematocrit 37.0 % (42.0-52.0); Hemoglobin 11.0 g/dl (14.0-18.0); Imm Gran Abs Auto 0.07 X10*3/uL (0.00-0.03); Imm Gran Pct Auto 1.1 % (0.0-0.4); Lymphocytes Absolute Auto 0.9 X10*3/uL (1.2-4.9); Mean Corpuscular HGB Conc 29.7 g/dl (31.0-36.0); Mean Corpuscular Hemoglobin 23.5 pg (27.0-33.0); Mean Corpuscular Volume 79.1 fL (80.0-98.0); NRBC Abs Auto 0.000 X10*3/uL (0.0-0.012); NRBC Pct Auto 0.0 /100WBC (0.0-0.2); PH 5.5 (5.0-9.0); Platelet Count 151 X10*3/uL (160-400); Red Blood Count 4.68 X10*6/uL (4.60-5.80); Specific Gravity - Urine 1.010 (1.005-1.025); UMIC TRIGGER UA YES; White Blood Count 6.1 X10*3/uL (4.8-10.8)
[2025-07-13 14:05] LABS: Alanine Aminotransferase 26 U/L (0-40); Albumin Level 3.9 g/dL (3.5-5.0); Alkaline Phosphatase 52 U/L (39-117); Anion Gap 17 (12-20); Aspartate Amino Transferase 23 U/L (5-37); Blood Urea Nitrogen 89 mg/dL (9-16); Calcium 7.1 mg/dL (8.4-10.2); Carbon Dioxide 22 mmol/L (22-29); Chloride 109 mmol/L (96-108); Estimated Glomerular Filt Rate 10; Potassium 3.9 mmol/L (3.3-5.1); Sodium 144 mmol/L (135-145); Total Protein 6.6 g/dL (6.5-8.0); Uric Acid 10.8 mg/dL (3.4-7.0)
[2025-07-13 14:16] LABS: Total Protein Urine Random 51 mg/dL (<12)
[2025-07-13 14:22] LABS: Parathyroid Hormone Intact 456.8 pg/mL (8.7-77.1)
== END 2025-07-13 10:13 | disposition home or self-care (01) ==
LOC: HO.HKASLDS 10:12
PROVIDERS: PCP Physician Assistant; Visit Provider Internal Medicine Hypertension Specialist
DX: I12.9 Hypertensive chronic kidney disease with stage 1 through stage 4 chronic kidney disease, or unspecified chronic kidney disease (principal); N18.9 Chronic kidney disease, unspecified; E78.5 Hyperlipidemia, unspecified; F17.210 Nicotine dependence, cigarettes, uncomplicated; Z79.899 Other long term (current) drug therapy
CPT/HCPCS: 36415; 80053; 81001; 82570; 83970; 84156; 84550; 85025; 99212

== ENCOUNTER 2025-07-13 10:12 | Outpatient (AMB) | payer MEDICAID, SELFPAY ==
[2025-07-13 10:15] VITALS: BP 156/106; PULSE 74; O2SAT 93; BMI 37.4
--- NOTE | 2025-07-13 10:15 | HO.NEPHOV ---
Vital Signs 07/13/25 10:15 Height 5 ft 5 in Weight 225 lb BMI 37.4 BP 156/106 H Blood Pressure Location Lt brachial Position Sitting Pulse 74 Pulse Source Pulse Oximeter Pulse Oximetry (%) 93 Oxygen Delivery Method Room Air Intake Visit Reasons: [facility] [place] [place] HFU,CONF Airport Representative Required: Yes Airport Representative Name: ana [id number] Accompanied by: Spouse Allergies No Known Allergies Allergy (Verified 07/13/25 10:17) Medication List - Last Reconciled 07/13/25 by Roscoe Li MD bumetanide 1 mg PO BID clonidine HCl 0.1 mg PO TID labetalol 100 mg See Protocol PO TID nifedipine ER 30 mg See Protocol PO DAILY prazosin 2 mg PO BEDTIME HPI Comments Details: 39-year-old man with a history of resistant hypertension was recently seen in [facility] for advanced renal failure. He was admitted to the medical ICU with pulmonary edema. He had malignant hypertension treated with nicardipine drip. His antihypertensive medications were the adjusted. He has a history of chronic kidney disease. He was seen by a truck engine assembler in [place] and has decided to switch providers. Today he is here for follow-up. He has last use of cocaine was prior to hospitalization in May. He seems compliant with his medications but ran out of nifedipine. He complains of leg edema. No shortness of breath. No nausea or vomiting. No fever. No diarrhea constipation. No rash. 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 Hyperlipidemia Tobacco use Surgical History H/O inguinal hernia repair H/O ventral hernia repair Social History Household Members: Unknown / Unable to assess Household Members Other:: unknown if any other household members Housing: Unknown / Unable to assess Do you presently have visiting nurse or other home services: No Patient Tobacco Use Status: Current everyday Tobacco user Tobacco use type: Cigarette e-Cigarette/Vaping Use: Never Used Second Hand Smoke Exposure: No Substance Use Type: Crack/Cocaine service: No Sexual orientation: Straight/Heterosexual Physical Exam Vital Signs: Last Vital Signs Pulse 74 07/13/25 10:15 BP 156/106 H 07/13/25 10:15 Pulse Ox 93 07/13/25 10:15 Oxygen Delivery Method Room Air 07/13/25 10:15 BMI result Body Mass Index 37.4 Comfortable Obese Neck supple no JVD. Lungs entry equal no rales. Heart S1-S2 heard no gallop or rub. Abdomen soft nontender. Ventral hernia present reducible. Nontender Neuro alert awake oriented. No asterixis. Extremities 3+edema. Results Reviewed Nephrology Results: Hgb, (14.0-18.0) 10.2 g/dl L 06/01/25 WBC, (4.8-10.8) 5.9 X10*3/uL 06/01/25 Plt Count, (160-400) 147 X10*3/uL L 06/01/25 Sodium, (135-145) 139 mmol/L 06/01/25 Potassium, (3.3-5.1) 3.6 mmol/L 06/01/25 Chloride, (96-108) 105 mmol/L 06/01/25 Carbon Dioxide, (22-29) 25 mmol/L 06/01/25 BUN, (9-16) 77 mg/dL H 06/01/25 Creatinine, (0.5-1.4) 5.60 mg/dL H* 06/01/25 Calcium, (8.4-10.2) 7.7 mg/dL L Δ 06/01/25 Phosphorus, (2.7-4.5) 4.7 mg/dL H 06/01/25 Urine Protein, (Neg-Trace) 100 (2+) mg/dL H 05/28/25 Urine Creatinine 57.17 mg/dL 05/23/25 Assessment & Plan Assessment & Plan (1) Hypertension: Code(s): I10 - Essential (primary) hypertension Category: Medical (2) Chronic kidney disease: Code(s): N18.9 - Chronic kidney disease, unspecified Category: Medical Plan Middle-aged man with advanced CKD in the setting of longstanding hypertension obesity and cocaine use with proteinuria. Prior to discharge serum creatinine was around 5.6 mg/dL. EGFR of 11 mL/minute. He had serological workup which was essentially unremarkable other than positive CLIVE. Baseline creatinine needs to be established. Recheck serum creatinine today. He is non nephrotic range proteinuria. We will recheck urinary protein excretion and he might require a kidney biopsy for a definite diagnosis. The meantime the goal is to maintain the blood pressure less than 130/80 Continue to avoid nephrotoxic agents. Including NSAIDs. Encouraged him to stay on low-sodium diet. Discussed importance of avoiding cocaine and other illicit drugs. The blood pressure today was suboptimal but better controlled. I gave him refills for nifedipine. Decrease Bumex from 2 mg b.i.d. down to 1 mg q.d.. Increase labetalol from 100 mg t.i.d. to 200 mg TID. Workup as outlined below. He returned to office in the next 2 weeks. All his questions were answered. Orders: Orders Creatinine Urine Today E78.5 - Hyperlipidemia, unspecified, I10 - Essential (primary) hypertension Total Protein Urine Random Today E78.5 - Hyperlipidemia, unspecified, I10 - Essential (primary) hypertension Parathyroid Hormone Intact Today E78.5 - Hyperlipidemia, unspecified, I10 - Essential (primary) hypertension US renal BI Today E78.5 - Hyperlipidemia, unspecified, I10 - Essential (primary) hypertension Complete Blood Count Auto Diff Today E78.5 - Hyperlipidemia, unspecified, I10 - Essential (primary) hypertension Comprehensive Met. Panel Today E78.5 - Hyperlipidemia, unspecified, I10 - Essential (primary) hypertension UA and rflx microscopic Today E78.5 - Hyperlipidemia, unspecified, I10 - Essential (primary) hypertension Uric Acid Today E78.5 - Hyperlipidemia, unspecified, I10 - Essential (primary) hypertension Medications: Changed From bumetanide 1 mg PO BID To bumetanide 1 mg PO DAILY 90 tabs 0RF From labetalol 100 mg See Protocol PO TID 90 tabs 0RF To labetalol 200 mg See Protocol PO TID 270 tabs 0RF Refilled nifedipine ER 30 mg See Protocol PO DAILY 90 tabs 0RF Discontinued hydralazine Discontinued Reason: Patient no longer taking 100 mg See Protocol PO TID 90 tabs 0RF Coding Level of Care Code Est Pt Level 4 (42268) Diagnoses Hypertension I10 Chronic kidney disease N18.9
--- OUTSIDE RECORDS SUMMARY | 2025-07-13 11:31 | XMS_ITS | Clinical Summary ---
Demographics Address [address] [facility] [address] [place] [address] Home Phone Preferred Language Unknown Marital Status Unknown Roman Catholic Affiliation Unknown Race Unknown Ethnic Group Unknown Author Organization [employer] Address [address] [facility] [address] [place] [address] Care Team Providers Care Director Network Development Name Role Phone Unavailable Primary Care Provider Unavailabl e Social History Tobacco Use Types Packs/Day Years Used Date Smoking Tobacco: Never Assessed Sex and Gender Information Value Date Recorded Sex Assigned at Not on file Legal Sex Male 9:23 PM EDT Gender Identity Not on file Sexual Orientation Not on file Plan of Treatment Health Maintenance Due Date Last Done Comments Depression Screening 1985 HIV Screening 1985 Lipid Panel 1985 SDOH Screening 1985 Disability Screening 1985 Alcohol/Substance Use Screening 1997 Tobacco Screening 1997 Family Planning (PISQ) 2000 HPV Vaccines (1 - Male 3-dos e series) 2000 Hepatitis C Screening 2003 DTaP/Tdap/Td Vaccines (1 - Tdap) 2004 Hepatitis B Vaccines (1 of 3 - 19+ 3-dose series) 2004 COVID-19 Vaccine (1 - 2023-2 5 season) 2025 Influenza Vaccine (#1) 2025 Zoster Vaccines (1 of 2) 2035 RSV Patients and Pa tients Aged 60 years or older (1 - 1-dose 75+ series) 2060 HIB Vaccines Aged Out No longer eligi ble based on patient's age to complete this topic Hepatitis A Vaccines Aged Out No long er eligible based on patient's age to complete this topic IPV Vaccines Aged Out No longer eligi ble based on patient's age to complete this topic Meningococcal B Vaccine Aged Out No l onger eligible based on patient's age to complete this topic Meningococcal Vaccine Aged Out No elif addison eligible based on patient's age to complete this topic Pneumococcal Vaccine: Pediat rics (0 to 5 Years) and At-Risk Patients (6 to 49) Years Aged Out No longer eligible b ased on patient's age to complete this topic RSV under 20 months Aged Out No longe r eligible based on patient's age to complete this topic Rotavirus Vaccines Aged Out No longer eligible based on patient's age to complete this topic
--- OUTSIDE RECORDS SUMMARY | 2025-07-13 11:31 | XMS_ITS | Patient Health Record ---
Author Organization [facility] Address [address] [place] [address] Care Team Providers Care Cow Trimmer Name Role Phone DavidDavidBolivar Leeroy Unavailable [phone] Reason For Referral No Information Plan Of Treatment No Information Insurance Providers Payer Name Payer Address Payer Phone Subscriber Number Group Number Insured Name Patient Relationship to Insured Coverage Start Date Coverage End Date [facility] [employer] [address] [place] [address] Troy Beltran Self - patient is the insured
== END 2025-07-13 10:38 | disposition home or self-care (01) ==
LOC: HO.HKAS 10:12
PROVIDERS: PCP Physician Assistant; Visit Provider Internal Medicine Hypertension Specialist
DX: I12.9 Hypertensive chronic kidney disease with stage 1 through stage 4 chronic kidney disease, or unspecified chronic kidney disease (principal); N18.9 Chronic kidney disease, unspecified
CPT/HCPCS: 99214

== ENCOUNTER 2025-07-30 09:21 | Outpatient (REF) | payer MEDICAID, SELFPAY ==
--- NOTE | ~2025-07-30 | US_ITS ---
CLINICAL HISTORY: I10 - Essential (primary) hypertension US of kidneys Comparison: CT/SR - CT ABDOMEN PELVIS WO IV CON - 01/27/25 08:03 EDT Findings: Right kidney is normal in size, 11.0 cm in length. Diffuse cortical thinning, not apparent on previous CT. Diffusely echogenic renal parenchyma. Simple cyst 2.2 cm in the lower pole. No calculus or hydronephrosis. Left kidney is normal in size, echogenicity and morphology, 11.6 cm in length. No calculus, mass or hydronephrosis. Limited color Doppler of bilateral renal hilar region demonstrates no obvious abnormality. Incidental note of small perihepatic ascites. Impression: 1. Right renal cortical thinning with diffusely echogenic parenchyma, concerning for medical renal disease. 2. Right renal benign cysts. 3. Ascites. This document has been electronically signed by: Ana Pérez MD on 07/30/2025 16:39:06
== END 2025-07-30 09:22 | disposition home or self-care (01) ==
LOC: HO.US 09:21
PROVIDERS: Visit Provider Internal Medicine Hypertension Specialist
DX: I10 Essential (primary) hypertension (principal); E78.5 Hyperlipidemia, unspecified
CPT/HCPCS: 76775

== ENCOUNTER → 2025-07-30 09:25 | Outpatient (BNV) | payer MEDICAID, SELFPAY | PROVIDERS: Visit Provider Radiology Diagnostic Radiology | DX: N28.1 Cyst of kidney, acquired (principal); R18.8 Other ascites | CPT/HCPCS: 76775 ==